=== PATIENT | male | born 1955 | race Caucasian/White ===

== ENCOUNTER 2016-07-24 07:01 | Day surgery (SDC) | payer OTHER ==
[2016-07-23 14:44] VITALS: BMI 26.4
[2016-07-24] MEDS ORDERED: LIDOCAINE HCL/PF 1% SDV 5ML VIAL ONE (07:52)
[2016-07-24] MEDS ORDERED: PROPOFOL 20 ML ONE ×3 (07:52)
[2016-07-24 09:00] VITALS: TEMP 98.1
[2016-07-24 10:20] VITALS: BP 121/68; PULSE 68
--- NOTE | 2016-07-25 13:21 | PATH ---
Surgical Pathology Report Patient Name: RICHA MORRIS [facility]. Rec. #: [id number] /Age/Gender: 1955 (Age: 61) / M Account: [id number] Location: [facility]-ENDOSCOPY Taken: 07/24/2016 Received: 07/24/2016 Reported: 07/25/2016 Physicians: Nicole Campoverde M.D. Specimen(s) Received A: BX ANTRUM B: BX DISTAL & MID ESOPHAGUS C: BX DISTAL SIGMOID POLYP D: CECAL POLYPS E: BX RECTUM Clinical History Acid reflux, atypical chest pain, polyp adenoma surveillance Gastritis, GERD, colon polyps, hemorrhoids, diverticulosis, proctitis Final Diagnosis A. STOMACH, ANTRUM, BIOPSY: GASTRIC ANTRAL MUCOSA WITH MODERATE CHRONIC GASTRITIS AND REACTIVE GASTROPATHY. IMMUNOSTAINS H. PYLORI IS NEGATIVE FOR ORGANISMS. B. ESOPHAGUS, DISTAL AND MID, BIOPSY: SQUAMOUS EPITHELIUM WITH FOCAL ACUTE AND CHRONIC INFLAMMATION AND MARKED REFLUX TYPE CHANGES. NO COLUMNAR EPITHELIUM PRESENT (NO INTESTINAL METAPLASIA OF SOLIS'S ESOPHAGUS IDENTIFIED). NO EVIDENCE OF EOSINOPHILIC ESOPHAGITIS. C. COLON, DISTAL SIGMOID, POLYP BIOPSY: FRAGMENTS OF HYPERPLASTIC POLYP. D. COLON, CECUM, POLYPS, BIOPSY AND POLYPECTOMY: FRAGMENTS OF SERRATED POLYP WITH ADENOMATOUS FEATURES AND CAUTERY ARTIFACT. ADDITIONAL FRAGMENTS OF COLONIC MUCOSA WITH SURFACE HYPERPLASTIC CHANGE. E. RECTUM, BIOPSY: RECTAL MUCOSA WITH ACTIVE PROCTITIS WITH FOCAL SURFACE EROSION (SEE COMMENT). NO EVIDENCE OF SIGINIFICANT ARCHITECTURAL DISTORTION, GRANULOMATA OR DYSPLASIA. Comment: The findings are nonspecific and may represent active proctitis of various etiologies including infections, drug/toxin injury, or peridiverticular inflammation. No prominent features of chronicity are seen. Clinical, endoscopic correlations and follow up are suggested. Electronically Signed Gaurang Matias M.D. Gross Description A. Received in formalin, labeled "biopsy antrum" are 2 camacho, irregular portions of soft tissue measuring 0.2 and 0.3 cm in greatest dimension. The specimens are submitted in toto in one cassette. B. Received in formalin, labeled "biopsy distal mid esophagus" are 2 camacho, irregular portions of soft tissue measuring 0.1 and 0.6 cm in greatest dimension. The specimens are submitted in toto in one cassette. C. Received in formalin, labeled "biopsy distal sigmoid polyp" are 2 camacho, irregular portions of soft tissue averaging 0.3 cm in greatest dimension. The specimens are submitted in toto in one cassette. D. Received in formalin, labeled "cecal polyps" are 8 cmaacho, irregular portions of soft tissue ranging from 0.1-0.4 cm in greatest dimension. The specimens are submitted in toto in one cassette. E. Received in formalin, labeled "biopsy rectum-proctitis" is a camacho, irregular portion of soft tissue measuring 0.3 cm in greatest dimension. The specimen is submitted in toto in one cassette. 07/24/2016 [facility]07/24/2016
== END 2016-07-24 10:19 | disposition home or self-care (01) ==
LOC: JASU-ENDO 07:01
PROVIDERS: ATTEND Internal Medicine Gastroenterology
PROC: 0DBK8ZX Excision of Ascending Colon, Via Natural or Artificial Opening Endoscopic, Diagnostic (ICD-10-PCS; 2016-07-24)
PROC: 0DBP8ZX Excision of Rectum, Via Natural or Artificial Opening Endoscopic, Diagnostic (ICD-10-PCS; 2016-07-24)
PROC: 0DB98ZX Excision of Duodenum, Via Natural or Artificial Opening Endoscopic, Diagnostic (ICD-10-PCS; 2016-07-24)
PROC: 0DB68ZX Excision of Stomach, Via Natural or Artificial Opening Endoscopic, Diagnostic (ICD-10-PCS; 2016-07-24)
PROC: 0DB28ZX Excision of Middle Esophagus, Via Natural or Artificial Opening Endoscopic, Diagnostic (ICD-10-PCS; 2016-07-24)
PROC: 0DB38ZX Excision of Lower Esophagus, Via Natural or Artificial Opening Endoscopic, Diagnostic (ICD-10-PCS; 2016-07-24)
PROC: 0DBK8ZX Excision of Ascending Colon, Via Natural or Artificial Opening Endoscopic, Diagnostic (ICD-10-PCS; principal; 2016-07-24 08:00)
DX: Z86.010 Personal history of colon polyps (principal); K63.5 Polyp of colon; K62.89 Other specified diseases of anus and rectum; K29.50 Unspecified chronic gastritis without bleeding; K31.9 Disease of stomach and duodenum, unspecified; K29.00 Acute gastritis without bleeding; K21.9 Gastro-esophageal reflux disease without esophagitis; K57.30 Diverticulosis of large intestine without perforation or abscess without bleeding; K64.8 Other hemorrhoids
CPT/HCPCS: 88305-TC; 88342-TC

== ENCOUNTER 2016-08-09 15:42 | Observation (INO) | payer OTHER ==
--- NOTE | 2016-08-09 16:12 | PDOC ---
Rapid Medical Evaluation Chief Complaint: Chest Pain Time Seen by Provider: 08/09/16 15:54 Medical Evaluation: Allergies Allergy/AdvReac Type Severity Reaction Status Date / Time Shellfish Allergy Unknown Verified 08/09/16 15:47 Iodinated Contrast Media - AdvReac Intermediate Verified 08/09/16 15:47 Oral and Vital Signs Temp Pulse Resp BP Pulse Ox 97.8 F 80 18 115/63 100 08/09/16 15:48 08/09/16 15:48 08/09/16 15:48 08/09/16 15:48 08/09/16 15:48 08/09/16 16:10 I have performed a brief in-person evaluation of this patient. The patient presents with a chief complaint of: pt sent for observation under dr albertina talamantes. C/o epigastriic and chest pain worse with swallowing. S/p endoscopy 1 week ago Pertinent physical exam findings: VSS. LCTA, no reproducible pain I have ordered the following: ekg, cardiac w/u , cbc, comp, ua, cxr, lipase The patient will proceed to the ED for further evaluation.
[2016-08-09] MEDS ORDERED: FAMOTIDINE 20 MG/50 ML IVPB 50 ML IVPB ONE ×2 (16:48→17:16)
[2016-08-09] MEDS ORDERED: MAG HYDROX/AL HYDROX/SIMETH 30 ML UNIT-DOSE CUP PO ONE (16:48)
[2016-08-09] MEDS ORDERED: SUCRALFATE 1 GM TABLET (FP) PO ONE (16:48)
[2016-08-09] MEDS ORDERED: ASPIRIN 81 MG CHEWABLE TABLETS PO ONE (16:48)
[2016-08-09 17:09] LABS: BASOPHIL 0.2 % (0-2.0); EOSINOPHIL 0.3 % (0-4.5); MCH 29.3 pg (25.7-33.7); MCHC 33.5 g/dl (32.0-35.9); MEAN CELL VOLUME 87.6 fl (80-96); MEAN PLT VOLUME 8.1 fl (7.5-11.1); PLATELET COUNT 342 K/MM3 (134-434); RDW 14.6 % (11.9-15.9); WHITE BLOOD COUNT 10.8 K/mm3 (4.0-10.0)
[2016-08-09] MEDS ORDERED: ASPIRIN 81 MG CHEWABLE TABLETS ONE (17:15)
[2016-08-09] MEDS ORDERED: MAG HYDROX/AL HYDROX/SIMETH 30 ML UNIT-DOSE CUP ONE (17:16)
[2016-08-09] MEDS ORDERED: SUCRALFATE 1 GM TABLET (FP) ONE (17:16)
[2016-08-09 17:24] LABS: INR 1.23 (0.82-1.09); PROTHROMBIN TIME (PATIENT) 13.6 SEC (9.98-11.88)
[2016-08-09 17:29] LABS: ALBUMIN 3.9 g/dl (3.4-5.0); ANION GAP 6 (8-16); BILIRUBIN,TOTAL 0.3 mg/dL (0.2-1.0); CO2 28 mmol/L (21-32); CREATININE 0.8 mg/dL (0.7-1.3); GLUCOSE,RANDOM 111 mg/dL (74-106); SGOT/AST 28 U/L (15-37); SGPT/ALT 59 U/L (12-78)
[2016-08-09 17:32] LABS: ALK PHOS 64 U/L (45-117); TROPONIN I < 0.02 ng/ml (0.00-0.05)
[2016-08-09 17:41] LABS: URINE APPEARANCE CLEAR; URINE BILIRUBIN NEGATIVE (NEGATIVE); URINE BLOOD NEGATIVE (NEGATIVE); URINE COLOR YELLOW; URINE GLUCOSE (UA) NEGATIVE (NEGATIVE); URINE KETONE NEGATIVE (NEGATIVE); URINE LEUK ESTERASE NEGATIVE (NEGATIVE); URINE NITRITE NEGATIVE (NEGATIVE); URINE PROTEIN NEGATIVE (NEGATIVE); URINE UROBILINOGEN NEGATIVE E.U./dl (0.2-1.0)
--- NOTE | 2016-08-09 17:53 | PDOC ---
History of Present Illness - General History Source: Patient, Co-worker Exam Limitations: No Limitations <Trell Perry - Last Filed: 08/09/16 18:06> - General History Source: Patient Exam Limitations: No Limitations - History of Present Illness Initial Comments: 08/09/16 17:59 The patient is a 61-year-old male, with a significant past medical history of peripheral neuropathy, CAD (S/P Stent S/P cardiac cath in Mar 2013.), HTN, Hyperlipdemia, DC, Other (Parox. Afib), COPD, GERD, BPH, recent fracture (Rt Tibia- no surgery due to cardiac issues), who was sent to the ED by Dr. Archibald for chest pain today. The patient states that the pain began this morning and woke him up out of his sleep. He describes the pain as constant, sharp in sensation, 2/10 when the pt is positioned comfortably but an 8/10 when the pt swallows, with no radiation. He does report experiencing shortness of breath for the past couple of days, but denies feeling short of breath now. The patient denies any fever, chills, nausea, vomiting, diarrhea, abdominal pain , or shortness of breath. 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) Cardiac Disorders: Yes (CAD, ANGINA, STENT X2, A-FIB) CVA: No COPD: Yes CHF: No DVT: No Dementia: No Diabetes: No GI Disorders: Yes (,DIVERTICULOSIS,,ESOPHAGEAL DYSMOTILITY) Disorders: Yes (NOCTURIA) HTN: Yes Hypercholesterolemia: Yes Kidney Stones: Yes Liver Disease: Yes (NAFLD) Suicide Attempt (Hx): No Seizures: No Thyroid Disease: No - Surgical History Abdominal Surgery: No Appendectomy: No Cardiac Surgery: Yes (CARDIAC STENT) Cholecystectomy: Yes (LAPAROSCOPIC) Lung Surgery: No Neurologic Surgery: No Orthopedic Surgery: Yes (ORIF Left Arm,Left Knee Arthroscopy) - Immunization History Td Vaccination: Yes (2006) Immunization Up to Date: Yes - Psycho/Social/Smoking Cessation Hx Anxiety: No Suicidal Ideation: No Smoking Status: Yes Smoking History: Unknown if ever smoked Years of Tobacco Use: 21 Have you smoked in the past 12 months: No Number of Cigarettes Smoked Daily: 60 If you are a former smoker, when did you quit?: ABOUT 20 YEARS AGO Information on smoking cessation initiated: No Hx Alcohol Use: No Drug/Substance Use Hx: No Substance Use Type: None Hx Substance Use Treatment: No <Trell Perry - Last Filed: 08/09/16 18:06> <Peggy Edmond - Last Filed: 08/09/16 18:15> - Past Medical History Allergies/Adverse Reactions: Allergies Allergy/AdvReac Type Severity Reaction Status Date / Time Shellfish Allergy Unknown Verified 08/09/16 15:47 Iodinated Contrast Media - AdvReac Intermediate Verified 08/09/16 15:47 Oral and Home Medications: Ambulatory Orders Albuterol 0.083% Nebulizer Jessy [Ventolin 0.083% Nebulizer Soln -] 1 neb NEB QID PRN 09/09/14 Aspirin [ASA -] 81 mg PO BID 09/09/14 Clopidogrel Bisulfate [Plavix -] 75 mg PO DAILY 09/09/14 Cyanocobalamin (Vitamin B-12) [Vitamin B-12] 1,000 mcg PO DAILY 09/09/14 Fish Oil/Borage/Flax/Om3,6,9#1 [[place]land 3-6-9 1,200 mg Softgel] 2 cap PO BID 09/09 Folic Acid - 1 mg PO HS 09/09/14 Hydrocodone Bit/Acetaminophen [Lortab 10-500] 1 tab PO TID PRN 09/09/14 Lisinopril [Prinivil -] 2.5 mg PO DAILY 09/09/14 Metoprolol Succinate [Toprol XL -] 25 mg PO BID 09/09/14 Montelukast Na [Singulair -] 10 mg PO HS 09/09/14 Multivitamins [Multivit ([facility] Formulary)] 1 tab PO DAILY 09/09/14 Nitroglycerin Sublingual [Nitrostat -] 0.4 mg SL ASDIR PRN 09/09/14 Potassium 99 mg PO DAILY 09/09/14 Sucralfate 1 gm PO QID 09/09/14 Zolpidem Tartrate [Ambien] 10 mg PO HS 09/09/14 Diltiazem Cd [Cardizem Cd -] 240 mg PO DAILY 11/14/14 Finasteride [Proscar] 5 mg PO DAILY 11/14/14 Magnesium Chloride [Slow-Mag -] 143 mg PO BID 11/14/14 Pravastatin Sodium [Pravachol -] 40 mg PO HS 11/14/14 Tamsulosin HCl [Flomax -] 0.4 mg PO DAILY 11/14/14 Dabigatran Etexilate Mesylate [Pradaxa -] 150 mg PO BID 07/23/16 Prednisone [Deltasone -] 10 mg PO DAILY 07/23/16 Mag Carb/Al Hydrox/Alginic AC [Gaviscon Liquid] 355 ml PO Q4H PRN #0 oral.susp 07/24/16 Mesalamine Suppository [Canasa Suppository] 1,000 mg RC DAILY #30 supp 07/24/16 Mesalamine Suppository [Canasa Suppository] 1,000 mg RC HS #0 supp 07/24/16 Pantoprazole Sodium [Protonix] 40 mg PO DAILY #0 tablet. 07/24/16 Pantoprazole Sodium [Protonix] 40 mg PO DAILY #90 tablet. 07/24/16 Ranitidine [Zantac -] 150 mg PO BID #0 07/24/16 Review of Systems - Review of Systems Able to Perform ROS?: Yes Comments:: 08/09/16 18:00 GENERAL/CONSTITUTIONAL: No fever or chills. No weakness. HEAD, EYES, EARS, NOSE AND THROAT: No change in vision. No ear pain or discharge. No sore throat. CARDIOVASCULAR: No shortness of breath. (+)Chest pain RESPIRATORY: No cough, wheezing, or hemoptysis. GASTROINTESTINAL: No nausea, vomiting, diarrhea or constipation. GENITOURINARY: No dysuria, frequency, or change in urination. MUSCULOSKELETAL: No joint or muscle swelling or pain. No neck or back pain. SKIN: No rash NEUROLOGIC: No headache, vertigo, loss of consciousness, or change in strength/ sensation. ENDOCRINE: No increased thirst. No abnormal weight change. HEMATOLOGIC/LYMPHATIC: No anemia, easy bleeding, or history of blood clots. ALLERGIC/IMMUNOLOGIC: No hives or skin allergy. <Peggy Edmond - Last Filed: 08/09/16 18:15> *Physical Exam - Vital Signs Last Vital Signs Temp Pulse Resp BP Pulse Ox 97.8 F 80 18 115/63 100 08/09/16 15:48 08/09/16 15:48 08/09/16 15:48 08/09/16 15:48 08/09/16 15:48 <Trell Perry - Last Filed: 08/09/16 18:06> - Vital Signs Last Vital Signs Temp Pulse Resp BP Pulse Ox 97.8 F 80 18 115/63 100 08/09/16 15:48 08/09/16 15:48 08/09/16 15:48 08/09/16 15:48 08/09/16 15:48 - Physical Exam Comments: 08/09/16 18:01 GENERAL: Awake, alert, and fully oriented, in no acute distress HEAD: No signs of trauma EYES: PERRLA, EOMI, sclera anicteric, conjunctiva clear ENT: Auricles normal inspection, hearing grossly normal, nares patent, oropharynx clear without exudates. Moist mucosa NECK: Normal ROM, supple, no lymphadenopathy, JVD, or masses LUNGS: Breath sounds equal, clear to auscultation bilaterally. No wheezes, and no crackles HEART: Regular rate and rhythm, normal S1 and S2, no murmurs, rubs or gallops ABDOMEN: Soft, nontender, normoactive bowel sounds. No guarding, no rebound. No masses EXTREMITIES: Normal range of motion, no edema. No clubbing or cyanosis. No cords, erythema, or tenderness NEUROLOGICAL: Cranial nerves II through XII grossly intact. Normal speech, normal gait SKIN: Warm, Dry, normal turgor, no rashes or lesions noted <Peggy Edmond - Last Filed: 08/09/16 18:15> Heart Score/ECG Review - History History: Moderately suspicious - Electrocardiogram EKG: Non specific repolarization disturbance - Age Age: >/= 65 - Risk Factors Based on the list above the patient has:: >/=3 risk factors or Hx atherosclerotic disease - Troponin Troponin: </= normal limit - Score Heart Score - Total: 6 #1 ECG reviewed & interpreted by me at: 15:50 08/09/16 18:07 NSR 70, incomplete RBBB, no std/rosales, T wave flat III, QTC 427 msec <Trell Perry - Last Filed: 08/09/16 18:06> ED Treatment Course - LABORATORY CBC & Chemistry Diagram: 08/09/16 16:25 08/09/16 16:25 - ADDITIONAL ORDERS Additional order review: Laboratory Results 08/09/16 08/09/16 08/09/16 16:30 16:25 16:25 INR 1.23 H Sodium 141 Potassium 4.4 Chloride 107 Carbon Dioxide 28 Anion Gap 6 L BUN 14 Creatinine 0.8 Creat Clearance w eGFR > 60 Random Glucose 111 H D Calcium 9.0 Total Bilirubin 0.3 D AST 28 D ALT 59 D Alkaline Phosphatase 64 D Creatine Kinase 62 Troponin I < 0.02 Total Protein 7.0 D Albumin 3.9 D Lipase 135 Urine Color Yellow Urine Appearance Clear Urine pH 5.0 Ur Specific [place] 1.027 Urine Protein Negative Urine Glucose (UA) Negative Urine Ketones Negative Urine Blood Negative Urine Nitrite Negative Urine Bilirubin Negative Urine Urobilinogen Negative Ur Leukocyte Esterase Negative 08/09/16 16:25 RBC 4.33 MCV 87.6 MCHC 33.5 RDW 14.6 MPV 8.1 Neutrophils % 88.0 H Lymphocytes % 6.6 L D Monocytes % 4.9 Eosinophils % 0.3 Basophils % 0.2 - Medications Given in the ED: ED Medications Discontinued Medications Generic Name Dose Route Start Last Admin Trade Name Shaun PRN Reason Stop Dose Admin Al Hydroxide/Mg Hydroxide 30 ml 08/09/16 16:48 08/09/16 17:30 Mylanta Oral Suspension - PO 08/09/16 16:49 30 ml ONCE ONE Administration Aspirin 243 mg 08/09/16 16:48 08/09/16 17:30 Asa - PO 08/09/16 16:49 243 mg ONCE ONE Administration Sucralfate 1 gm 08/09/16 16:48 08/09/16 17:30 Carafate - PO 08/09/16 16:49 1 gm ONCE ONE Administration <Trell Perry - Last Filed: 08/09/16 18:06> - LABORATORY CBC & Chemistry Diagram: 08/09/16 16:25 08/09/16 16:25 - ADDITIONAL ORDERS Additional order review: Laboratory Results 08/09/16 08/09/16 08/09/16 16:30 16:25 16:25 INR 1.23 H Sodium 141 Potassium 4.4 Chloride 107 Carbon Dioxide 28 Anion Gap 6 L BUN 14 Creatinine 0.8 Creat Clearance w eGFR > 60 Random Glucose 111 H D Calcium 9.0 Total Bilirubin 0.3 D AST 28 D ALT 59 D Alkaline Phosphatase 64 D Creatine Kinase 62 Troponin I < 0.02 Total Protein 7.0 D Albumin 3.9 D Lipase 135 Urine Color Yellow Urine Appearance Clear Urine pH 5.0 Ur Specific [place] 1.027 Urine Protein Negative Urine Glucose (UA) Negative Urine Ketones Negative Urine Blood Negative Urine Nitrite Negative Urine Bilirubin Negative Urine Urobilinogen Negative Ur Leukocyte Esterase Negative 08/09/16 16:25 RBC 4.33 MCV 87.6 MCHC 33.5 RDW 14.6 MPV 8.1 Neutrophils % 88.0 H Lymphocytes % 6.6 L D Monocytes % 4.9 Eosinophils % 0.3 Basophils % 0.2 - RADIOLOGY Radiology Studies Ordered: 08/09/16 18:12 Chest X-Ray was reviewed by Dr. Perry and over-read by Radiology. Impression: No acute pathology. No significant change since prior study. - Medications Given in the ED: ED Medications Discontinued Medications Generic Name Dose Route Start Last Admin Trade Name Freq PRN Reason Stop Dose Admin Al Hydroxide/Mg Hydroxide 30 ml 08/09/16 16:48 08/09/16 17:30 Mylanta Oral Suspension - PO 08/09/16 16:49 30 ml ONCE ONE Administration Aspirin 243 mg 08/09/16 16:48 08/09/16 17:30 Asa - PO 08/09/16 16:49 243 mg ONCE ONE Administration Sucralfate 1 gm 08/09/16 16:48 08/09/16 17:30 Carafate - PO 08/09/16 16:49 1 gm ONCE ONE Administration <Peggy Edmond - Last Filed: 08/09/16 18:15> Medical Decision Making - Medical Decision Making 08/09/16 17:53 A portion of this note was documented by scribe services under my direction. I have reviewed the details of the note, within reason, and agree with the documentation with the following case summary and management plan written by me. Patient treated in the ED. Nursing notes are reviewed and incorporated into the medical decision-making. Vital signs reviewed. Peripheral IV access obtained by the nurse, laboratory studies are drawn and sent, reviewed and interpreted by myself. Vital Signs Temp Pulse Resp BP Pulse Ox 97.8 F 80 18 115/63 100 03/03/17 15:48 08/09/16 15:48 08/09/16 15:48 08/09/16 15:48 08/09/16 15:48 61 year old male with Past medical history of asthma, cancer, teratoma 19 years old, coronary artery disease, angina, coronary disease status post stents, atrial fibrillation on pradaxa, hypertension, hyperlipidemia, GERD, kidney stones presents with chest pain from patient's primary care physician's office. 2 weeks ago, the patient had an colonoscopy and endoscopy by GI doctor Dr. Campoverde. Was told that he had polyps at that time. Since then, the patient has been complaining about intermittent midsternal chest discomfort with no radiation. Occasionally sepsis or shortness of breath. Denies nausea, vomiting, diaphoresis. Patient went to go visit his primary care physician but was referred to the ER for cardiac workup. Patient reports that the symptoms are worsened with eating. It may be very possible that this is GI related. However, given his significant cardiac history, we will need to rule out DC. We'll give GERD medications, aspirin. Obtain a troponin and admit the patient to the hospital for further evaluation. 08/09/16 18:07 CBC, BMP 08/09/16 16:25 08/09/16 16:25 CMP Sodium 141 mmol/L (136-145) 08/09/16 16:25 Potassium 4.4 mmol/L (3.5-5.1) 08/09/16 16:25 Chloride 107 mmol/L (98-107) 08/09/16 16:25 Carbon Dioxide 28 mmol/L (21-32) 08/09/16 16:25 Anion Gap 6 (8-16) L 08/09/16 16:25 BUN 14 mg/dL (7-18) 08/09/16 16:25 Creatinine 0.8 mg/dL (0.7-1.3) 08/09/16 16:25 Creat Clearance w eGFR > 60 (>60) 08/09/16 16:25 Random Glucose 111 mg/dL (74-106) H D 08/09/16 16:25 Calcium 9.0 mg/dL (8.5-10.1) 08/09/16 16:25 Total Bilirubin 0.3 mg/dL (0.2-1.0) D 08/09/16 16:25 AST 28 U/L (15-37) D 08/09/16 16:25 ALT 59 U/L (12-78) D 08/09/16 16:25 Alkaline Phosphatase 64 U/L (45-117) D 08/09/16 16:25 Creatine Kinase 62 IU/L (39-308) 08/09/16 16:25 Troponin I < 0.02 ng/ml (0.00-0.05) 08/09/16 16:25 Total Protein 7.0 g/dl (6.4-8.2) D 08/09/16 16:25 Albumin 3.9 g/dl (3.4-5.0) D 08/09/16 16:25 Lipase 135 U/L (73-393) 08/09/16 16:25 Trop negative. Chest xray reviewed by me, pending official read. No acute findings. GERD medications did not alleviate symptoms. Case discussed with Dr. Archibald. She accepts the patient to tele observation. Case discussed in detail with admitting physician including history, physical exam and ancillary studies. Admitting physician has assumed care for the patient, will follow all pending diagnostics and will complete the evaluation and treatment. <Trell Perry - Last Filed: 08/09/16 18:06> - Medical Decision Making 08/09/16 18:04 Dr. Mehreen Cobb was paged and notified via phone service. <Peggy Edmond - Last Filed: 08/09/16 18:15> *DC/Admit/Observation/Transfer - Discharge Dispostion Admit: Yes <Trell Perry - Last Filed: 08/09/16 18:06> - Attestations Scribe Attestion: 08/09/16 18: Documentation prepared by Peggy Edmond, acting as medical assistant supervisor for Trell Perry MD. <Peggy Edmond - Last Filed: 08/09/16 18:15> Diagnosis at time of Disposition: Chest pain Qualifiers: Chest pain type: unspecified Qualified Code(s): R07.9 - Chest pain, unspecified - Referrals Referrals: David Quiñonez MD [Primary Care Provider] -
[2016-08-09] MEDS ORDERED: ACETAMINOPHEN PO PRN (21:08)
[2016-08-09] MEDS ORDERED: NITROGLYCERIN SUBLINGUAL 1/150 0.4 MG TAB SL PRN (21:08)
[2016-08-09] MEDS ORDERED: ALBUTEROL SO4 0.083% IH SOL 2.5 MG/3 ML VIAL.NEB. NEB PRN (21:08)
[2016-08-09] MEDS ORDERED: HYDROCODONE PO PRN (21:08)
[2016-08-09] MEDS ORDERED: [UNRECOGNIZED DRUG - OTHER] PO PRN (21:08)
[2016-08-09] MEDS ORDERED: ZOLPIDEM TARTRATE 5 MG TABLET PO PRN (22:00)
[2016-08-09 22:08] LABS: TROPONIN I < 0.02 ng/ml (0.00-0.05)
[2016-08-09] MEDS ORDERED: ATORVASTATIN CA 10 MG TABLET (FP) PO SCH (22:15)
[2016-08-09] MEDS: RANITIDINE HCL 150 MG TABLET (FP) PO SCH (22:34)
[2016-08-09] MEDS: DABIGATRAN ETEXILATE MESYLATE 150 MG CAPSULE PO SCH (22:34)
[2016-08-09] MEDS: METOPROLOL SUCCINATE 25 MG TAB.SR.24H (FP) PO SCH (22:34)
[2016-08-09] MEDS: SUCRALFATE 1 GM TABLET (FP) PO SCH (22:34)
[2016-08-09] MEDS: oxyCODONE HCL 5 MG TABLET PO PRN (22:44)
[2016-08-09] MEDS: ACETAMINOPHEN 325 MG TABLET (FP) PO PRN (22:46)
[2016-08-09 23:06] VITALS: BMI 26.4
[2016-08-09] MEDS: MAGNESIUM CL 64 MG TABLET.SA PO SCH (23:18)
[2016-08-10] MEDS: oxyCODONE HCL 5 MG TABLET PO PRN (06:35)
[2016-08-10] MEDS: ACETAMINOPHEN 325 MG TABLET (FP) PO PRN (06:36)
[2016-08-10 07:01] LABS: BASOPHIL 0.3 % (0-2.0); MCH 28.7 pg (25.7-33.7); MCHC 32.8 g/dl (32.0-35.9); MEAN CELL VOLUME 87.4 fl (80-96); MEAN PLT VOLUME 7.8 fl (7.5-11.1); NEUTROPHILS 70.6 % (42.8-82.8); PLATELET COUNT 301 K/MM3 (134-434); RDW 14.4 % (11.9-15.9); WHITE BLOOD COUNT 10.9 K/mm3 (4.0-10.0)
[2016-08-10 07:29] LABS: TROPONIN I < 0.02 ng/ml (0.00-0.05)
[2016-08-10 07:30] LABS: ALBUMIN 3.6 g/dl (3.4-5.0); ANION GAP 8 (8-16); CO2 29 mmol/L (21-32); GLUCOSE,RANDOM 91 mg/dL (74-106)
[2016-08-10 07:33] LABS: ALK PHOS 56 U/L (45-117); BILIRUBIN,TOTAL 0.4 mg/dL (0.2-1.0); CREATININE 0.8 mg/dL (0.7-1.3); SGOT/AST 20 U/L (15-37); SGPT/ALT 48 U/L (12-78); TOT PROT 6.3 g/dl (6.4-8.2)
--- NOTE | 2016-08-10 08:48 | CON.CARD ---
Consult Consult Specialty:: Cardiology - History of Present Illness History of Present Illness: The patient is a 61-year-old male, with a significant past medical history of peripheral neuropathy, CAD (S/P Stent S/P cardiac cath in Mar 2013.), HTN, Hyperlipdemia, MS, Other (Parox. Afib), COPD, GERD, BPH, recent fracture (Rt Tibia- no surgery due to cardiac issues), who was sent to the ED by Dr. Archibald for chest pain today. The patient states that the pain began this morning and woke him up out of his sleep. He describes the pain as constant, sharp in sensation, 2/10 when the pt is positioned comfortably but an 8/10 when the pt swallows, with no radiation. He does report experiencing shortness of breath for the past couple of days, but denies feeling short of breath now. patient describes cp as something stuck in his esophagus. 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 Afib) Pulmonary: Yes: Cancer, COPD Gastrointestinal: Yes: GERD Renal/: Yes: BPH Psych: Yes: Anxiety, Panic Musculoskeletal: Yes: Other (recent fracture Rt Tibia- no surgery due to cardiac issues) Endocrine: Yes: Diabetes Mellitus - Past Surgical History Past Surgical History: Yes: Stent (recent stent was in Mar 2013.) - Alcohol/Substance Use Hx Alcohol Use: Yes (moderate) - Smoking History Smoking history: Former smoker Have you smoked in the past 12 months: No Aproximately how many cigarettes per day: 60 If you are a former smoker, when did you quit?: 1989 - Social History ADL: Family Assistance History of Recent Travel: No Home Medications - Allergies Allergies/Adverse Reactions: Allergies Allergy/AdvReac Type Severity Reaction Status Date / Time Shellfish Allergy Unknown Verified 08/09/16 15:47 Iodinated Contrast Media - AdvReac Intermediate Verified 08/09/16 15:47 Oral and - Home Medications Home Medications: Ambulatory Orders Albuterol 0.083% Nebulizer Jessy [Ventolin 0.083% Nebulizer Soln -] 1 neb NEB TID PRN 09/09/14 Clopidogrel Bisulfate [Plavix -] 75 mg PO DAILY 09/09/14 Cyanocobalamin (Vitamin B-12) [Vitamin B-12] 1,000 mcg PO DAILY 09/09/14 Fish Oil/Borage/Flax/Om3,6,9#1 [[place] 3-6-9 1,200 mg Softgel] 2 cap PO BID 09/09 Folic Acid - 1 mg PO HS 09/09/14 Lisinopril [Prinivil -] 2.5 mg PO DAILY 09/09/14 Metoprolol Succinate [Toprol XL -] 25 mg PO BID 09/09/14 Montelukast Na [Singulair -] 10 mg PO HS 09/09/14 Multivitamins [Multivit ([facility] Formulary)] 1 tab PO DAILY 09/09/14 Nitroglycerin Sublingual [Nitrostat -] 0.4 mg SL ASDIR PRN 09/09/14 Potassium 99 mg PO DAILY 09/09/14 Sucralfate 1 gm PO ACHS 09/09/14 Zolpidem Tartrate [Ambien] 10 mg PO HS PRN 09/09/14 Diltiazem Cd [Cardizem Cd -] 240 mg PO DAILY 11/14/14 Finasteride [Proscar] 5 mg PO DAILY 11/14/14 Magnesium Chloride [Slow-Mag -] 143 mg PO BID 11/14/14 Pravastatin Sodium [Pravachol -] 40 mg PO HS 11/14/14 Tamsulosin HCl [Flomax -] 0.4 mg PO DAILY 11/14/14 Dabigatran Etexilate Mesylate [Pradaxa -] 150 mg PO BID 07/23/16 Prednisone [Deltasone -] 10 mg PO DAILY 07/23/16 Ranitidine [Zantac -] 150 mg PO BID #0 07/24/16 Aspirin [Ecotrin] 81 mg PO BID 08/09/16 Hydrocodone/Acetaminophen [Lorcet Hd 10-325 mg Tablet] 1 each PO TID PRN Albuterol Sulfate Inhaler - [Ventolin Hfa Inhaler -] 1 - 2 inh PO BID PRN Fluticasone Prop 0.05% Nasal [Flonase -] 1 - 2 spray NS BID PRN 08/10/16 Review of Systems - Review of Systems Constitutional: reports: No Symptoms Eyes: reports: No Symptoms HENT: reports: No Symptoms Neck: reports: No Symptoms Cardiovascular: reports: Chest Pain Gastrointestinal: reports: Indigestion Genitourinary: reports: No Symptoms Breasts: reports: No Symptoms Reported Musculoskeletal: reports: No Symptoms Integumentary: reports: No Symptoms Neurological: reports: No Symptoms Endocrine: reports: No Symptoms Hematology/Lymphatic: reports: No Symptoms Psychiatric: reports: No Symptoms Vital Signs: Vital Signs Temperature 98.4 F 08/10/16 06:00 Pulse Rate 74 08/10/16 06:00 Respiratory Rate 20 08/10/16 06:00 Blood Pressure 129/81 08/10/16 06:00 O2 Sat by Pulse Oximetry (%) 98 08/09/16 22:00 Constitutional: Yes: Well Nourished, No Distress, Calm Eyes: Yes: WNL, Conjunctiva Clear, EOM Intact HENT: Yes: WNL, Atraumatic, Normocephalic Neck: Yes: WNL, Supple, Trachea Midline Respiratory: Yes: WNL, Regular, CTA Bilaterally Gastrointestinal: Yes: WNL, Normal Bowel Sounds Renal/: Yes: WNL Cardiovascular: Yes: WNL, Regular Rate and Rhythm Musculoskeletal: Yes: WNL Extremities: Yes: WNL Integumentary: Yes: WNL Neurological: Yes: WNL, Alert, Oriented ...Motor Strength: WNL Psychiatric: Yes: WNL, Alert, Oriented - Other Data Labs, Other Data: CBC, BMP 08/10/16 06:20 08/10/16 06:20 INR, PTT INR 1.23 (0.82-1.09) H 08/09/16 16:25 Troponin, BNP 08/09/16 08/10/16 21:31 06:20 Troponin I < 0.02 < 0.02 Troponin, BNP 08/09/16 08/10/16 21:31 06:20 Troponin I < 0.02 < 0.02 Imaging - Results Chest X-ray: Image Reviewed (no i/e) EKG: Pending Problem List - Problems (1) Anticoagulation adequate Code(s): Z79.01 - HALF-WAY (CURRENT) USE OF ANTICOAGULANTS (2) CAD (coronary artery disease) Code(s): I25.10 - ATHSCL HEART DISEASE OF [place] CORONARY ARTERY W/O ANG PCTRS (3) Chest pain Code(s): R07.9 - CHEST PAIN, UNSPECIFIED Qualifiers: Chest pain type: unspecified Qualified Code(s): R07.9 - Chest pain, unspecified (4) HLD (hyperlipidemia) Code(s): E78.5 - HYPERLIPIDEMIA, UNSPECIFIED (5) HTN (hypertension) Code(s): I10 - ESSENTIAL (PRIMARY) HYPERTENSION (6) Paroxysmal a-fib Code(s): I48.0 - PAROXYSMAL ATRIAL FIBRILLATION (7) Right leg pain Code(s): M79.604 - PAIN IN RIGHT LEG (8) Acute coronary syndrome Code(s): I24.9 - ACUTE ISCHEMIC HEART DISEASE, UNSPECIFIED (9) Atopic conjunctivitis of right eye Code(s): H10.11 - ACUTE ATOPIC CONJUNCTIVITIS, RIGHT EYE (10) Atrial fibrillation with rapid ventricular response Code(s): I48.91 - UNSPECIFIED ATRIAL FIBRILLATION (11) Blepharitis of right eye Code(s): H01.003 - UNSPECIFIED BLEPHARITIS RIGHT EYE, UNSPECIFIED EYELID (12) EKG abnormalities Code(s): R94.31 - ABNORMAL ELECTROCARDIOGRAM [ECG] [EKG] (13) Nosebleed Code(s): R04.0 - EPISTAXIS Assessment/Plan ashd cp sx indigestion ce neg htn hld af plan gi eval r/o mi ekg tlemetry will f/u
[2016-08-10] MEDS ORDERED: PT OWN MED DRAWER 7, Y5N ONE (09:28)
[2016-08-10] MEDS: RANITIDINE HCL 150 MG TABLET (FP) PO SCH (09:43)
[2016-08-10] MEDS: SUCRALFATE 1 GM TABLET (FP) PO SCH (09:43)
[2016-08-10] MEDS: DABIGATRAN ETEXILATE MESYLATE 150 MG CAPSULE PO SCH (09:44)
[2016-08-10] MEDS: MAGNESIUM CL 64 MG TABLET.SA PO SCH (09:44)
[2016-08-10] MEDS: METOPROLOL SUCCINATE 25 MG TAB.SR.24H (FP) PO SCH (09:45)
[2016-08-10] MEDS ORDERED: CLOPIDOGREL BISULFATE 75 MG TABLET (FP) PO SCH (10:00)
[2016-08-10] MEDS ORDERED: LISINOPRIL 5 MG TABLET (FP) PO SCH (10:00)
[2016-08-10] MEDS ORDERED: FINASTERIDE 5 MG TABLET (FP) PO SCH (10:00)
[2016-08-10] MEDS ORDERED: TAMSULOSIN HCL 0.4 MG CAP.ER.24H (FP) PO SCH (10:00)
[2016-08-10] MEDS ORDERED: predniSONE 10 MG TABLET (UD) PO SCH (10:00)
[2016-08-10] MEDS ORDERED: ASPIRIN COATED 81 MG TABLET.EC PO SCH (10:00)
--- NOTE | 2016-08-10 11:23 | HP ---
Admitting History and Physical - Primary Care Physician PCP: Mehreen Cobb - Admission Chief Complaint: chest pain History of Present Illness: 61 YRS old male sent from my office for chest pain while swallowing yesterday. Pt woke up yesterday morning with chest pain -- sharp, increased on swallowing- feels like a sharp , cutting object in his mid- chest. EKG done in my office was unremarkable but I sent him to be evaluated for ACS as he has h/o cardiac disease. 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 Afib) Pulmonary: Yes: Cancer, COPD Gastrointestinal: Yes: GERD Renal/: Yes: BPH Psych: Yes: Anxiety, Panic Musculoskeletal: Yes: Other (recent fracture Rt Tibia- no surgery due to cardiac issues) Endocrine: Yes: Diabetes Mellitus - Past Surgical History Past Surgical History: Yes: Stent (recent stent was in Mar 2013.) - Smoking History Smoking history: Former smoker Have you smoked in the past 12 months: No Aproximately how many cigarettes per day: 60 If you are a former smoker, when did you quit?: 1989 - Alcohol/Substance Use Hx Alcohol Use: Yes (moderate) - Social History ADL: Family Assistance History of Recent Travel: No Home Medications - Allergies Allergies/Adverse Reactions: Allergies Allergy/AdvReac Type Severity Reaction Status Date / Time Shellfish Allergy Unknown Verified 08/09/16 15:47 Iodinated Contrast Media - AdvReac Intermediate Verified 08/09/16 15:47 Oral and - Home Medications Home Medications: Ambulatory Orders Albuterol 0.083% Nebulizer Jessy [Ventolin 0.083% Nebulizer Soln -] 1 neb NEB TID PRN 09/09/14 Clopidogrel Bisulfate [Plavix -] 75 mg PO DAILY 09/09/14 Cyanocobalamin (Vitamin B-12) [Vitamin B-12] 1,000 mcg PO DAILY 09/09/14 Fish Oil/Borage/Flax/Om3,6,9#1 [[place] 3-6-9 1,200 mg Softgel] 2 cap PO BID 09/09 Folic Acid - 1 mg PO HS 09/09/14 Lisinopril [Prinivil -] 2.5 mg PO DAILY 09/09/14 Metoprolol Succinate [Toprol XL -] 25 mg PO BID 09/09/14 Montelukast Na [Singulair -] 10 mg PO HS 09/09/14 Multivitamins [Multivit ([facility] Formulary)] 1 tab PO DAILY 09/09/14 Nitroglycerin Sublingual [Nitrostat -] 0.4 mg SL ASDIR PRN 09/09/14 Potassium 99 mg PO DAILY 09/09/14 Sucralfate 1 gm PO ACHS 09/09/14 Zolpidem Tartrate [Ambien] 10 mg PO HS PRN 09/09/14 Diltiazem Cd [Cardizem Cd -] 240 mg PO DAILY 11/14/14 Finasteride [Proscar] 5 mg PO DAILY 11/14/14 Magnesium Chloride [Slow-Mag -] 143 mg PO BID 11/14/14 Pravastatin Sodium [Pravachol -] 40 mg PO HS 11/14/14 Tamsulosin HCl [Flomax -] 0.4 mg PO DAILY 11/14/14 Dabigatran Etexilate Mesylate [Pradaxa -] 150 mg PO BID 07/23/16 Prednisone [Deltasone -] 10 mg PO DAILY 07/23/16 Ranitidine [Zantac -] 150 mg PO BID #0 07/24/16 Aspirin [Ecotrin] 81 mg PO BID 08/09/16 Hydrocodone/Acetaminophen [Lorcet Hd 10-325 mg Tablet] 1 each PO TID PRN Albuterol Sulfate Inhaler - [Ventolin HFA Inhaler -] 1 - 2 inh PO BID PRN Fluticasone Prop 0.05% Nasal [Flonase -] 1 - 2 spray NS BID PRN 08/10/16 Review of Systems - Review of Systems Constitutional: denies: Chills, Fever, Loss of Appetite, Weakness Cardiovascular: reports: Chest Pain. denies: Palpitations, Shortness of Breath Respiratory: denies: Cough, SOB, SOB on Exertion Physical Examination Vital Signs: Vital Signs Temperature 98.4 F 08/10/16 06:00 Pulse Rate 74 08/10/16 06:00 Respiratory Rate 20 08/10/16 06:00 Blood Pressure 129/81 08/10/16 06:00 O2 Sat by Pulse Oximetry (%) 98 08/10/16 05:00 Constitutional: Yes: No Distress, Calm Cardiovascular: Yes: Regular Rate and Rhythm Respiratory: Yes: CTA Bilaterally Gastrointestinal: Yes: Normal Bowel Sounds, Soft. No: Distention, Tenderness Edema: No Psychiatric: Yes: Alert, Oriented Labs: CBC, BMP 08/10/16 06:20 08/10/16 06:20 Imaging - Results Chest X-ray: Image Reviewed EKG: Image Reviewed (No ST elevation, NSR) Problem List - Problems (1) CAD (coronary artery disease) Code(s): I25.10 - ATHSCL HEART DISEASE OF [place] CORONARY ARTERY W/O ANG PCTRS (2) HLD (hyperlipidemia) Code(s): E78.5 - HYPERLIPIDEMIA, UNSPECIFIED (3) HTN (hypertension) Code(s): I10 - ESSENTIAL (PRIMARY) HYPERTENSION (4) Paroxysmal a-fib Code(s): I48.0 - PAROXYSMAL ATRIAL FIBRILLATION (5) Chest pain Code(s): R07.9 - CHEST PAIN, UNSPECIFIED Qualifiers: Chest pain type: unspecified Qualified Code(s): R07.9 - Chest pain, unspecified (6) Esophageal spasm Code(s): K22.4 - DYSKINESIA OF ESOPHAGUS (7) GERD without esophagitis Code(s): K21.9 - GASTRO-ESOPHAGEAL REFLUX DISEASE WITHOUT ESOPHAGITIS Assessment/Plan PLAN Cardiac enzymes negative continue with meds Pt feels slightly better today Able to eat breakfast Will need Carafate and PPI Cleared by Cardiology Spoke with Dr Muller-- pt is ok for dc home
[2016-08-10 11:28] VITALS: BP 101/77; PULSE 84; TEMP 98
[2016-08-10 11:30] LABS: TROPONIN I < 0.02 ng/ml (0.00-0.05)
[2016-08-10] MEDS ORDERED: MAG HYDROX/AL HYDROX/SIMETH 30 ML UNIT-DOSE CUP PO PRN (11:40)
--- NOTE | 2016-08-10 12:59 | CON.GI ---
Consult Consult Specialty:: Gastroenterology Referred by:: Dr. Mehreen Cobb Reason for Consultation:: Chest pain - History of Present Illness Chief Complaint: Awoken by a sharp cutting pain in the mid-chest History of Present Illness: 61M presented to the office of Dr. Mehreen Cobb yesterday with c/o a sharp, cutting mid-retrosternal chest pain aggravated by swallowing . He had an EGD with or on 07/24/16 when mid-esophageal spasms were noted but there were no ulcerations or esophagitis. Biopsies failed to reveal eosinophilic esophagitis or Ramires's metaplasia. Colonoscopy on the same day led to removal of cecal and right colon serrated adenomas and hyperplastic polyps and of a hyperplastic sigmoid polyp. He was found to have proctitis for which canasa was prescribed. Diverticulosis was noted noted. He had coronary stents placed on 2005,2011,2012 and 2014. 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 Cardio/Vascular: Yes: AFIB (paroxysmal), CAD (S/P Stent S/P cardiac cath in Mar 2013.), HTN, Hyperlipdemia, [place], Other (cardiac arrest/[place] 2005) Pulmonary: Yes: COPD Gastrointestinal: Yes: Diverticulosis, GERD, Other (colon polyps including serrated adenomas, proctitis) Renal/: Yes: BPH (caused urosepsis), Renal Calculi Infectious Disease: Yes: Other (dog bite required rabies injections) Psych: Yes: Anxiety, Panic Musculoskeletal: Yes: Chronic low back pain (herniated lumbar discs), Osteoarthritis (knees), Other (recent fracture Rt Tibia- no surgery due to cardiac issues) Dermatology: Yes: Basal Cell (basal cell carcinoma excised from right subclavicular area) - Past Surgical History Past Surgical History: Yes: Arthrosocopy (left knee meniscus), Cholecystectomy ( laparoscopic), Colonoscopy, Orchiectomy (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 reattachment of avulsed right 5th hand digit - Alcohol/Substance Use Hx Alcohol Use: Yes (moderate) History of Substance Use: reports: None - Smoking History Smoking history: Former smoker Have you smoked in the past 12 months: No Aproximately how many cigarettes per day: 60 If you are a former smoker, when did you quit?: 1989 - Social History Usual Living Arrangement: Alone ADL: Family Assistance Occupation: disabled former [employer] employee Place of : [facility] History of Recent Travel: No Home Medications - Allergies Allergies/Adverse Reactions: Allergies Allergy/AdvReac Type Severity Reaction Status Date / Time Shellfish Allergy Unknown Verified 08/09/16 15:47 Iodinated Contrast Media - AdvReac Intermediate Verified 08/09/16 15:47 Oral and - Home Medications Home Medications: Ambulatory Orders Albuterol 0.083% Nebulizer Jessy [Ventolin 0.083% Nebulizer Soln -] 1 neb NEB TID PRN 09/09/14 Clopidogrel Bisulfate [Plavix -] 75 mg PO DAILY 09/09/14 Cyanocobalamin (Vitamin B-12) [Vitamin B-12] 1,000 mcg PO DAILY 09/09/14 Fish Oil/Borage/Flax/Om3,6,9#1 [[place] 3-6-9 1,200 mg Softgel] 2 cap PO BID 09/09 Folic Acid - 1 mg PO HS 09/09/14 Lisinopril [Prinivil -] 2.5 mg PO DAILY 09/09/14 Metoprolol Succinate [Toprol XL -] 25 mg PO BID 09/09/14 Montelukast Na [Singulair -] 10 mg PO HS 09/09/14 Multivitamins [Multivit ([facility] Formulary)] 1 tab PO DAILY 09/09/14 Nitroglycerin Sublingual [Nitrostat -] 0.4 mg SL ASDIR PRN 09/09/14 Potassium 99 mg PO DAILY 09/09/14 Sucralfate 1 gm PO ACHS 09/09/14 Zolpidem Tartrate [Ambien] 10 mg PO HS PRN 09/09/14 Diltiazem Cd [Cardizem Cd -] 240 mg PO DAILY 11/14/14 Finasteride [Proscar] 5 mg PO DAILY 11/14/14 Magnesium Chloride [Slow-Mag -] 143 mg PO BID 11/14/14 Pravastatin Sodium [Pravachol -] 40 mg PO HS 11/14/14 Tamsulosin HCl [Flomax -] 0.4 mg PO DAILY 11/14/14 Dabigatran Etexilate Mesylate [Pradaxa -] 150 mg PO BID 07/23/16 Prednisone [Deltasone -] 10 mg PO DAILY 07/23/16 Ranitidine [Zantac -] 150 mg PO BID #0 07/24/16 Aspirin [Ecotrin] 81 mg PO BID 08/09/16 Hydrocodone/Acetaminophen [Lorcet Hd 10-325 mg Tablet] 1 each PO TID PRN Albuterol Sulfate Inhaler - [Ventolin Hfa Inhaler -] 1 - 2 inh PO BID PRN Fluticasone Prop 0.05% Nasal [Flonase -] 1 - 2 spray NS BID PRN 08/10/16 Family Disease History - Family Disease History Family Disease History: CA: Father (lung cancer), Mother (colon cancer) Review of Systems - Review of Systems Constitutional: reports: No Symptoms Eyes: reports: No Symptoms HENT: reports: Difficult Swallowing (pain on swallowing x 2 days) Neck: reports: No Symptoms Cardiovascular: reports: Chest Pain Respiratory: reports: No Symptoms Gastrointestinal: reports: Dysphagia, Other (acid reflux) Genitourinary: reports: No Symptoms Musculoskeletal: reports: Back Pain, Joint Pain, Muscle Pain Neurological: reports: No Symptoms Endocrine: reports: No Symptoms Psychiatric: reports: No Symptoms Physical Exam-GI Vital Signs: Vital Signs Temperature 98.0 F 08/10/16 10:00 Pulse Rate 84 08/10/16 10:00 Respiratory Rate 20 08/10/16 10:00 Blood Pressure 101/77 08/10/16 10:00 O2 Sat by Pulse Oximetry (%) 98 08/10/16 05:00 CBC,CMP WBC 10.9 K/mm3 (4.0-10.0) H 08/10/16 06:20 RBC 4.37 M/mm3 (4.00-5.60) 08/10/16 06:20 Hgb 12.5 GM/dL (11.7-16.9) 08/10/16 06:20 Hct 38.2 % (35.4-49) 08/10/16 06:20 MCV 87.4 fl (80-96) 08/10/16 06:20 MCHC 32.8 g/dl (32.0-35.9) 08/10/16 06:20 RDW 14.4 % (11.9-15.9) 08/10/16 06:20 Plt Count 301 K/MM3 (134-434) 08/10/16 06:20 MPV 7.8 fl (7.5-11.1) 08/10/16 06:20 Neutrophils % 70.6 % (42.8-82.8) 08/10/16 06:20 Lymphocytes % 18.4 % (8-40) D 08/10/16 06:20 Monocytes % 9.7 % (3.8-10.2) D 08/10/16 06:20 Eosinophils % 1.0 % (0-4.5) D 08/10/16 06:20 Basophils % 0.3 % (0-2.0) 08/10/16 06:20 Sodium 144 mmol/L (136-145) 08/10/16 06:20 Potassium 4.1 mmol/L (3.5-5.1) 08/10/16 06:20 Chloride 107 mmol/L (98-107) 08/10/16 06:20 Carbon Dioxide 29 mmol/L (21-32) 08/10/16 06:20 Anion Gap 8 (8-16) 08/10/16 06:20 BUN 11 mg/dL (7-18) D 08/10/16 06:20 Creatinine 0.8 mg/dL (0.7-1.3) 08/10/16 06:20 Creat Clearance w eGFR > 60 (>60) 08/10/16 06:20 Random Glucose 91 mg/dL (74-106) 08/10/16 06:20 Calcium 9.0 mg/dL (8.5-10.1) 08/10/16 06:20 Total Bilirubin 0.4 mg/dL (0.2-1.0) D 08/10/16 06:20 AST 20 U/L (15-37) D 08/10/16 06:20 ALT 48 U/L (12-78) 08/10/16 06:20 Alkaline Phosphatase 56 U/L (45-117) 08/10/16 06:20 Creatine Kinase 46 IU/L (39-308) 08/10/16 10:35 Troponin I < 0.02 ng/ml (0.00-0.05) 08/10/16 10:35 Total Protein 6.3 g/dl (6.4-8.2) L 08/10/16 06:20 Albumin 3.6 g/dl (3.4-5.0) 08/10/16 06:20 Lipase 135 U/L (73-393) 08/09/16 16:25 Current Medications Generic Name Dose Route Start Last Admin Trade Name Freq PRN Reason Stop Dose Admin Acetaminophen 325 mg 08/09/16 22:40 08/10/16 06:36 Tylenol - PO 325 mg Q8H PRN Administration PAIN Al Hydroxide/Mg Hydroxide 30 ml 08/10/16 11:40 Mylanta Oral Suspension - PO Q6H PRN DYSPEPSIA Albuterol Sulfate 1 amp 08/09/16 21:08 Ventolin 0.083% Nebulizer Soln - NEB QID PRN ASTHMA Aspirin 81 mg 08/10/16 10:00 08/10/16 09:43 Ecotrin - PO 81 mg DAILY OMID Administration Atorvastatin Calcium 10 mg 08/09/16 22:15 08/09/16 22:34 Lipitor - PO 10 mg HS OMID Administration Clopidogrel Bisulfate 75 mg 08/10/16 10:00 08/10/16 09:42 Plavix - PO 75 mg DAILY OMID Administration Dabigatran 150 mg 08/09/16 22:00 08/10/16 09:44 Pradaxa - PO 150 mg BID OMID Administration Diltiazem HCl 240 mg 08/10/16 10:00 08/10/16 09:43 Cardizem Cd - PO 240 mg DAILY OMID Administration Finasteride 5 mg 08/10/16 10:00 08/10/16 09:44 Proscar - PO 5 mg DAILY OMID Administration Lisinopril 2.5 mg 08/10/16 10:00 08/10/16 09:43 Prinivil PO 2.5 mg DAILY OMID Administration Magnesium Chloride 128 mg 08/10/16 22:00 Slow-Mag - PO BID [facility] Metoprolol Succinate 25 mg 08/09/16 22:00 08/10/16 09:45 Toprol Xl - PO 25 mg BID OMID Administration Nitroglycerin 0.4 mg 08/09/16 21:08 Nitrostat - SL ASDIR PRN CHEST PAIN Oxycodone HCl 5 mg 08/09/16 22:40 08/10/16 06:35 Roxicodone - PO 5 mg Q8H PRN Administration PAIN Prednisone 10 mg 08/10/16 10:00 08/10/16 09:42 Deltasone - PO 10 mg DAILY OMID Administration Ranitidine HCl 150 mg 08/09/16 22:00 08/10/16 09:43 Zantac - PO 150 mg BID OMID Administration Sucralfate 1 gm 08/09/16 22:00 08/10/16 09:43 Carafate - PO 1 gm QID OMID Administration Tamsulosin HCl 0.4 mg 08/10/16 10:00 08/10/16 09:42 Flomax - PO 0.4 mg DAILY OMID Administration Zolpidem Tartrate 5 mg 08/09/16 22:00 08/09/16 23:39 Ambien - PO 5 mg HS PRN Administration INSOMNIA Constitutional: Yes: Calm Eyes: Yes: Conjunctiva Clear HENT: Yes: Atraumatic Neck: Yes: Supple Cardiovascular: Yes: Regular Rate and Rhythm Respiratory: Yes: CTA Bilaterally Gastrointestinal Inspection: Yes: Scars (long left vertical paramedian and laparoscopic incisions), Other (Umbilical hernia) ...Auscultate: Yes: Normoactive Bowel Sounds ...Palpate: Yes: Soft, Other (nontender) ...Rectal Exam: Yes: Deferred (due to colonosocpy 2 weeks ago) Genitourinary: Yes: Other (absent left testicle) Edema: No Peripheral Pulses WNL: Yes Neurological: Yes: Alert, Oriented Psychiatric: Yes: Alert Labs: CBC, BMP 08/10/16 06:20 08/10/16 06:20 INR, PTT INR 1.23 (0.82-1.09) H 08/09/16 16:25 Laboratory Tests 08/09/16 08/10/16 08/10/16 16:25 06:20 06:20 WBC 10.9 H Hgb 12.5 Total Bilirubin 0.4 D AST 20 D ALT 48 Alkaline Phosphatase 56 Albumin 3.6 Lipase 135 Problem List - Problems (1) GERD with esophagitis Code(s): K21.0 - GASTRO-ESOPHAGEAL REFLUX DISEASE WITH ESOPHAGITIS (2) Proctitis Code(s): K62.89 - OTHER SPECIFIED DISEASES OF ANUS AND RECTUM (3) Diverticula of colon Code(s): K57.30 - DVRTCLOS OF LG INT W/O PERFORATION OR ABSCESS W/O BLEEDING (4) Colon adenomas Code(s): D12.6 - BENIGN NEOPLASM OF COLON, UNSPECIFIED (5) Esophageal spasm Code(s): K22.4 - DYSKINESIA OF ESOPHAGUS (6) Teratoma of testis Code(s): C62.90 - MALIG NEOPLASM OF UNSP TESTIS, UNSP DESCENDED OR UNDESCENDED (7) Hx laparoscopic cholecystectomy Code(s): Z90.49 - ACQUIRED ABSENCE OF OTHER SPECIFIED PARTS OF DIGESTIVE TRACT (8) BPH (benign prostatic hypertrophy) with urinary obstruction Code(s): N40.1 - BENIGN PROSTATIC HYPERPLASIA WITH LOWER URINARY TRACT SYMP N13.8 - OTHER OBSTRUCTIVE AND REFLUX UROPATHY (9) COPD (chronic obstructive pulmonary disease) Code(s): J44.9 - CHRONIC OBSTRUCTIVE PULMONARY DISEASE, UNSPECIFIED (10) Hx of cardiac arrest Code(s): Z86.74 - PERSONAL HISTORY OF SUDDEN CARDIAC ARREST (11) Arthritis Code(s): M19.90 - UNSPECIFIED OSTEOARTHRITIS, UNSPECIFIED SITE (12) Lumbar disc disease Code(s): M51.9 - UNSP THORACIC, THORACOLUM AND LUMBOSACR INTVRT DISC DISORDER (13) Myocardial infarction, old Code(s): I25.2 - OLD MYOCARDIAL INFARCTION Assessment/Plan Although Arben has a h/o esophageal spasms this chest pain is due to dysphagia likely related to reflux as my biopsy site or a new food or medication (aspirin ) caused erosion. I have advised antacids q6h and PPI therapy. As he is tolerating diet and was cleared by the vacation guide I have no objections to discharge. Discussed with Dr Cobb. He has been instructed to also resume his canasa suppositories for his proctitis.
--- NOTE | 2016-08-10 13:09 | DS ---
Physical Examination Vital Signs: Vital Signs Temperature 98.0 F 08/10/16 10:00 Pulse Rate 84 08/10/16 10:00 Respiratory Rate 20 08/10/16 10:00 Blood Pressure 101/77 08/10/16 10:00 O2 Sat by Pulse Oximetry (%) 98 08/10/16 05:00 Labs: CBC, BMP 08/10/16 06:20 08/10/16 06:20 Discharge Summary Reason For Visit: CHEST PAIN Current Active Problems Anticoagulation adequate (Acute) CAD (coronary artery disease) (Acute) Chest pain (Acute) HLD (hyperlipidemia) (Acute) HTN (hypertension) (Acute) Paroxysmal a-fib (Acute) Right leg pain (Acute) Hospital Course: see H & P Condition: Improved - Instructions Referrals: David Quiñonez MD [Primary Care Provider] - Disposition: HOME - Home Medications Comprehensive Discharge Medication List: Ambulatory Orders Albuterol 0.083% Nebulizer Jessy [Ventolin 0.083% Nebulizer Soln -] 1 neb NEB TID PRN 09/09/14 Clopidogrel Bisulfate [Plavix -] 75 mg PO DAILY 09/09/14 Cyanocobalamin (Vitamin B-12) [Vitamin B-12] 1,000 mcg PO DAILY 09/09/14 Fish Oil/Borage/Flax/Om3,6,9#1 [[place] 3-6-9 1,200 mg Softgel] 2 cap PO BID 09/09 Folic Acid - 1 mg PO HS 09/09/14 Lisinopril [Prinivil -] 2.5 mg PO DAILY 09/09/14 Metoprolol Succinate [Toprol XL -] 25 mg PO BID 09/09/14 Montelukast Na [Singulair -] 10 mg PO HS 09/09/14 Multivitamins [Multivit ([facility] Formul[facility])] 1 tab PO DAILY 09/09/14 Nitroglycerin Sublingual [Nitrostat -] 0.4 mg SL ASDIR PRN 09/09/14 Potassium 99 mg PO DAILY 09/09/14 Sucralfate 1 gm PO ACHS 09/09/14 Zolpidem Tartrate [Ambien] 10 mg PO HS PRN 09/09/14 Diltiazem Cd [Cardizem Cd -] 240 mg PO DAILY 11/14/14 Finasteride [Proscar] 5 mg PO DAILY 11/14/14 Magnesium Chloride [Slow-Mag -] 143 mg PO BID 11/14/14 Pravastatin Sodium [Pravachol -] 40 mg PO HS 11/14/14 Tamsulosin HCl [Flomax -] 0.4 mg PO DAILY 11/14/14 Dabigatran Etexilate Mesylate [Pradaxa -] 150 mg PO BID 07/23/16 Prednisone [Deltasone -] 10 mg PO DAILY 07/23/16 Ranitidine [Zantac -] 150 mg PO BID #0 07/24/16 Aspirin [Ecotrin] 81 mg PO BID 08/09/16 Hydrocodone/Acetaminophen [[place] Hd 10-325 mg Tablet] 1 each PO TID PRN Albuterol Sulfate Inhaler - [Ventolin HFA Inhaler -] 1 - 2 inh PO BID PRN Fluticasone Prop 0.05% Nasal [Flonase -] 1 - 2 spray NS BID PRN 08/10/16
[2016-08-10] MEDS ORDERED: MAGNESIUM CL 64 MG TABLET.SA PO SCH (22:00)
--- NOTE | 2016-08-11 21:14 | EKG ---
Test Reason : Blood Pressure : / mmHG Vent. Rate : 078 BPM Atrial Rate : 078 BPM P-R Int : 174 ms QRS Dur : 098 ms QT Int : 382 ms P-R-T Axes : 067 -16 038 degrees QTc Int : 435 ms NORMAL SINUS RHYTHM EARLY R WAVE PROGRESSION NORMAL ECG WHEN COMPARED WITH ECG OF 09-AUG-2016 15:49, NO SIGNIFICANT CHANGE WAS FOUND Confirmed by MERI MCLAUGHLIN MD ([id number]) on 08/11/2016 9:13:43 PM Referred By: KARIN HEWITT Confirmed By:MERI MCLAUGHLIN MD
--- NOTE | 2016-08-11 21:16 | EKG ---
Test Reason : Blood Pressure : / mmHG Vent. Rate : 070 BPM Atrial Rate : 070 BPM P-R Int : 172 ms QRS Dur : 094 ms QT Int : 396 ms P-R-T Axes : 058 019 039 degrees QTc Int : 427 ms NORMAL SINUS RHYTHM NORMAL ECG WHEN COMPARED WITH ECG OF 12-DEC-2015 09:06, NO SIGNIFICANT CHANGE WAS FOUND Confirmed by MERI MCLAUGHLIN MD ([id number]) on 08/11/2016 9:16:30 PM Referred By: Confirmed By:MERI MCLAUGHLIN MD
== END 2016-08-10 14:30 | disposition home or self-care (01) ==
LOC: JER 15:42 → JERBED 18:10 → J4S 22:17
PROVIDERS: ADMIT Internal Medicine; ATTEND Internal Medicine
DX: K21.9 Gastro-esophageal reflux disease without esophagitis (principal); I25.119 Atherosclerotic heart disease of native coronary artery with unspecified angina pectoris; Z95.5 Presence of coronary angioplasty implant and graft; J44.9 Chronic obstructive pulmonary disease, unspecified; J45.909 Unspecified asthma, uncomplicated; N40.0 Benign prostatic hyperplasia without lower urinary tract symptoms; I10 Essential (primary) hypertension; E78.5 Hyperlipidemia, unspecified; Z87.891 Personal history of nicotine dependence; I48.0 Paroxysmal atrial fibrillation; Z79.01 Long term (current) use of anticoagulants; G62.9 Polyneuropathy, unspecified; K22.4 Dyskinesia of esophagus; I25.2 Old myocardial infarction; F41.9 Anxiety disorder, unspecified
CPT/HCPCS: 36415; 71010-TC; 80053; 81003; 82550; 83690; 84484; 85025; 85610; 93005; 93010; 99285-25; G0378

== ENCOUNTER 2016-12-25 08:56 | Inpatient (IN) | payer OTHER ==
--- NOTE | 2016-12-25 09:10 | PDOC ---
History of Present Illness <Braeden Peck - Last Filed: 12/25/16 10:58> - General History Source: Patient Exam Limitations: No Limitations - History of Present Illness Initial Comments: 12/25/16 09:32 The patient is a 61 year old male, with a significant past medical history of an MN (3-4 years ago, was placed on Coumadin and has discontinued it since 3 years ago), paroxysmal AFib, CAD(s/p stent and cardiac cath in 2012), hypertension, hyperlipidemia, COPD, GERD, BPH, and peripheral neuropathy, who presents to the emergency department complaining of chest pain since earlier this morning. The patient states the chest pain began this morning and woke him out of his sleep. He describes the pain as a constant flutter, as if someone were stepping on his chest. Patient reports this discomfort prompted him to measure his blood pressure earlier, which was slightly elevated. He states his pulse fluctuated between 75 and 140, and he called EMS. When EMS arrived on scene, the patient was given a nitroglycerin which slightly decreased his BP. Patient reports some SOB and SOB with exertion. He denies any associated diaphoresis or lower extremity edema. He denies any fever, chills, cough, headache, or dizziness. 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 He states his last AFib episode was approximately 1.5 years ago. Allergies: Iodinated Contrast Media, Shellfish Past Surgical History: Lymph nodes, Multiple Cardiac Stents, Cardiac Catheterization, Cholecystectomy, ORIF left arm, Left knee arthroscopy Social Histoy: Former Smoker(Quit 1989). No ETOH or recreational drug use. PCP: Dr. Cobb/ Dr. 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) Cardiac Disorders: Yes (CAD, ANGINA, Multiple STENT, PAFIB, MN) CVA: No COPD: Yes CHF: Yes (unsure) DVT: No Dementia: No Diabetes: No GI Disorders: Yes (DIVERTICULOSIS,ESOPHAGEAL DYSMOTILITY, GERD, spasmatic esophagus) Disorders: Yes (BPH) HTN: Yes Hypercholesterolemia: Yes Kidney Stones: Yes Liver Disease: Yes (NAFLD) Suicide Attempt (Hx): No Seizures: No Thyroid Disease: No - Surgical History Abdominal Surgery: Yes (lymph nodes) Appendectomy: No Cardiac Surgery: Yes (multiple stents) Cholecystectomy: Yes (LAPAROSCOPIC) Lung Surgery: No Neurologic Surgery: No Orthopedic Surgery: Yes (ORIF Left Arm,Left Knee Arthroscopy,) - Immunization History Td Vaccination: (2006) Immunization Up to Date: Yes - Psycho/Social/Smoking Cessation Hx Anxiety: No Suicidal Ideation: No Smoking Status: Yes Smoking History: Former smoker Years of Tobacco Use: 21 Have you smoked in the past 12 months: No Number of Cigarettes Smoked Daily: 60 If you are a former smoker, when did you quit?: 1989 Information on smoking cessation initiated: No Hx Alcohol Use: No Drug/Substance Use Hx: No Substance Use Type: None Hx Substance Use Treatment: No <Braeden Peck - Last Filed: 12/25/16 10:58> <Adelfo Bell - Last Filed: 12/25/16 12:04> - Past Medical History Allergies/Adverse Reactions: Allergies Allergy/AdvReac Type Severity Reaction Status Date / Time Shellfish Allergy Unknown Verified 12/25/16 09:06 Iodinated Contrast Media - AdvReac Intermediate Verified 12/25/16 09:06 Oral and Home Medications: Ambulatory Orders Albuterol Sulfate Inhaler - [Ventolin Hfa Inhaler -] 1 - 2 inh PO QID PRN Aspirin [ASA -] 81 mg PO DAILY 12/25/16 Clopidogrel Bisulfate [Plavix -] 75 mg PO DAILY 12/25/16 Cyanocobalamin (Vitamin B-12) [Vitamin B12] 0 mcg PO DAILY 12/25/16 Dabigatran Etexilate Mesylate [Pradaxa -] 150 mg PO BID 12/25/16 Diltiazem Cd [Cardizem Cd -] 240 mg PO DAILY 12/25/16 Finasteride [Proscar] 5 mg PO DAILY 12/25/16 Fluticasone Prop 0.05% Nasal [Flonase -] 1 - 2 spray NS PRN PRN 12/25/16 Folic Acid 1 mg PO DAILY 12/25/16 Lisinopril [Zestril] 2.5 mg PO DAILY 12/25/16 Magnesium Chloride [Slow-Mag -] 64 mg PO DAILY 12/25/16 Metoprolol Succinate [Toprol Xl -] 25 mg PO BID 12/25/16 Montelukast Na [Singulair -] 10 mg PO HS 12/25/16 Nitroglycerin [Nitrostat] 0.4 mg SL PRN PRN 12/25/16 [place]-3S/Dha/Epa/Fish Oil [Fish Oil [place]-3 Softgel] 2 each PO BID 12/25/16 Pantoprazole Sodium 40 mg PO HS 12/25/16 Potassium 0 mg PO DAILY 12/25/16 Pravastatin Sodium [Pravachol (Nf)] 40 mg PO HS 12/25/16 Prednisone 10 mg PO DAILY 12/25/16 Ranitidine [Zantac -] 150 mg PO HS 12/25/16 Sucralfate [Carafate -] 1 gm PO QID 12/25/16 Tamsulosin HCl [Flomax] 0.4 mg PO DAILY 12/25/16 Zolpidem Tartrate [Ambien] 10 mg PO HS 12/25/16 Review of Systems - Review of Systems Able to Perform ROS?: Yes Comments:: 12/25/16 09:36 GENERAL/CONSTITUTIONAL: No fever or chills. No weakness. HEAD, EYES, EARS, NOSE AND THROAT: No change in vision. No ear pain or discharge. No sore throat. CARDIOVASCULAR: Yes: +Chest pain, +shortness of breath, +palpitations. No diaphoresis. RESPIRATORY: No cough, wheezing, or hemoptysis. GASTROINTESTINAL: No nausea, vomiting, diarrhea or constipation. GENITOURINARY: No dysuria, frequency, or change in urination. MUSCULOSKELETAL: No joint or muscle swelling or pain. No neck or back pain. SKIN: No rash NEUROLOGIC: No headache, vertigo, loss of consciousness, or change in strength/ sensation. ENDOCRINE: No increased thirst. No abnormal weight change. HEMATOLOGIC/LYMPHATIC: No anemia, easy bleeding, or history of blood clots. ALLERGIC/IMMUNOLOGIC: No hives or skin allergy. <Adelfo Bell - Last Filed: 12/25/16 12:04> *Physical Exam - Vital Signs Last Vital Signs Temp Pulse Resp BP Pulse Ox 98.9 F 88 18 111/76 98 12/25/16 09:00 12/25/16 09:00 12/25/16 09:00 12/25/16 09:00 12/25/16 09:00 <Braeden Peck - Last Filed: 12/25/16 10:58> - Vital Signs Last Vital Signs Temp Pulse Resp BP Pulse Ox 98.9 F 88 18 111/76 98 12/25/16 09:00 12/25/16 09:00 12/25/16 09:00 12/25/16 09:00 12/25/16 09:00 - Physical Exam Comments: 12/25/16 09:35 GENERAL: Awake, alert, and fully oriented, in no acute distress HEAD: No signs of trauma EYES: PERRLA, EOMI, sclera anicteric, conjunctiva clear ENT: Auricles normal inspection, hearing grossly normal, nares patent, oropharynx clear without exudates. Moist mucosa NECK: Normal ROM, supple, no lymphadenopathy, JVD, or masses LUNGS: Breath sounds equal, clear to auscultation bilaterally. No wheezes, and no crackles. No rales or ronchi. HEART: Irregularly irregular. No murmurs, rubs or gallops ABDOMEN: Soft, nontender, normoactive bowel sounds. No guarding, no rebound. No masses EXTREMITIES: Normal range of motion, no edema. No clubbing or cyanosis. No cords , erythema, or tenderness NEUROLOGICAL: Cranial nerves II through XII grossly intact. Normal speech, normal gait SKIN: Warm, Dry, normal turgor, no rashes or lesions noted. <Adelfo Bell - Last Filed: 12/25/16 12:04> Heart Score/ECG Review - ECG Intrepretation Comment:: 12/25/16 09:33 EMS ECG IMPRESSION: AFib. Rate of 130. Nonspecific ST-T changes and normal axis. ER ECG Vent Rate: 80 bpm IMPRESSION: Atrial Fibrillation. Incomplete right bundle branch block. Repeat ECG Vent Rate: 76 bpm IMPRESSION: Sinus rhythm with marked sinus arrhythmia. <Adelfo Bell - Last Filed: 12/25/16 12:04> ED Treatment Course - LABORATORY CBC & Chemistry Diagram: 12/25/16 09:24 12/25/16 09:20 <Braeden Peck - Last Filed: 12/25/16 10:58> - LABORATORY CBC & Chemistry Diagram: 12/25/16 09:24 12/25/16 09:20 - RADIOLOGY Radiograph Interpretation: 12/25/16 12:04 EXAM: CXR INTERPRETED BY: Dr. Samano REVIEWED BY: Dr. Peck IMPRESSION: No evidence of active pulmonary disease. - Medications Given in the ED: ED Medications Discontinued Medications Generic Name Dose Route Start Last Admin Trade Name Shaun PRN Reason Stop Dose Admin Aspirin 162 mg 12/25/16 09:17 12/25/16 09:22 Asa - PO 12/25/16 09:18 162 mg ONCE ONE Administration <Adelfo Bell - Last Filed: 12/25/16 12:04> Medical Decision Making - Medical Decision Making 12/25/16 11:01 First call placed to Dr. Cobb at 10:59. Awaiting call back. Case discussed with Dr. Cobb at 11:23. <Adelfo Bell - Last Filed: 12/25/16 12:04> *DC/Admit/Observation/Transfer - Discharge Dispostion Admit: Yes - Attestations Physician Attestion: 12/25/16 09:09 I, Dr. Braeden Peck, attest that this document has been prepared under my direction and personally reviewed by me in its entirety. I further attest, that it accurately reflects all work, treatment, procedures and medical decision -making performed by me. <Braeden Peck - Last Filed: 12/25/16 10:58> - Attestations Scribe Attestion: 12/25/16 09:38 Documentation prepared by Adelfo Bell, acting as medical device sales for Braeden Peck DO. <Adelfo Bell - Last Filed: 12/25/16 12:04> Diagnosis at time of Disposition: Paroxysmal atrial fibrillation with rapid ventricular response, CAD (coronary artery disease) - Discharge Dispostion Condition at time of disposition: Improved - Referrals
[2016-12-25] MEDS ORDERED: ASPIRIN 81 MG CHEWABLE TABLETS PO ONE (09:17)
[2016-12-25] MEDS ORDERED: ASPIRIN 81 MG CHEWABLE TABLETS ONE (09:27)
[2016-12-25 09:57] LABS: BASOPHIL 0.4 % (0-2.0); MCH 27.9 pg (25.7-33.7); MCHC 32.2 g/dl (32.0-35.9); MEAN CELL VOLUME 86.8 fl (80-96); NEUTROPHILS 71.4 % (42.8-82.8); PLATELET COUNT 298 K/MM3 (134-434)
--- NOTE | 2016-12-25 10:00 | CON.CARD ---
Consult Consult Specialty:: cardiology Reason for Consultation:: cp/palpitations - History of Present Illness History of Present Illness: The patient is a 61 year old male, with a significant past medical history of an SD (3-4 years ago, was placed on Coumadin and has discontinued it since 3 years ago), paroxysmal AFib, CAD(s/p stent and cardiac cath in 2012), hypertension, hyperlipidemia, COPD, GERD, BPH, and peripheral neuropathy, who presents to the emergency department complaining of chest pain since earlier this morning. The patient states the chest pain began this morning and woke him out of his sleep. He describes the pain as a constant flutter, as if someone were stepping on his chest. Patient reports this discomfort prompted him to measure his blood pressure earlier, which was slightly elevated. He states his pulse fluctuated between 75 and 140, and he called EMS. When EMS arrived on scene, the patient was given a nitroglycerin which slightly decreased his BP. Patient reports some SOB and SOB with exertion. He denies any associated diaphoresis or lower extremity edema. He denies any fever, chills, cough, headache, or dizziness. 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 He states his last AFib episode was approximately 1.5 years ago. Allergies: Iodinated Contrast Media, Shellfish Past Surgical History: Lymph nodes, Multiple Cardiac Stents, Cardiac Catheterization, Cholecystectomy, ORIF left arm, Left knee arthroscopy Social Histoy: Former Smoker(Quit 1989). No ETOH or recreational drug use. PCP: Dr. Cobb/ Dr. Lexii Quiñonez Peoples[employer] Consultant: Dr. 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 Afib) Pulmonary: Yes: Cancer, COPD Gastrointestinal: Yes: GERD Renal/: Yes: BPH Infectious Disease: Yes: Other (dog bite required rabies injections) Psych: Yes: Anxiety, Panic Musculoskeletal: Yes: Other (recent fracture Rt Tibia- no surgery due to cardiac issues) Endocrine: Yes: Diabetes Mellitus Dermatology: Yes: Basal Cell (basal cell carcinoma excised from right subclavicular area) - Past Surgical History Past Surgical History: Yes: Stent (recent stent was in Mar 2013.) - Alcohol/Substance Use Hx Alcohol Use: No History of Substance Use: reports: None - Smoking History Smoking history: Former smoker Have you smoked in the past 12 months: No Aproximately how many cigarettes per day: 60 If you are a former smoker, when did you quit?: 1989 - Social History Usual Living Arrangement: Alone ADL: Family Assistance Occupation: disabled former [employer] employee History of Recent Travel: No Home Medications - Allergies Allergies/Adverse Reactions: Allergies Allergy/AdvReac Type Severity Reaction Status Date / Time Shellfish Allergy Unknown Verified 12/25/16 09:06 Iodinated Contrast Media - AdvReac Intermediate Verified 12/25/16 09:06 Oral and - Home Medications Home Medications: Ambulatory Orders Albuterol Sulfate Inhaler - [Ventolin Hfa Inhaler -] 1 - 2 inh PO QID PRN Aspirin [ASA -] 81 mg PO DAILY 12/25/16 Clopidogrel Bisulfate [Plavix -] 75 mg PO DAILY 12/25/16 Cyanocobalamin (Vitamin B-12) [Vitamin B12] 0 mcg PO DAILY 12/25/16 Dabigatran Etexilate Mesylate [Pradaxa -] 150 mg PO BID 12/25/16 Diltiazem Cd [Cardizem Cd -] 240 mg PO DAILY 12/25/16 Finasteride [Proscar] 5 mg PO DAILY 12/25/16 Fluticasone Prop 0.05% Nasal [Flonase -] 1 - 2 spray NS PRN PRN 12/25/16 Folic Acid 1 mg PO DAILY 12/25/16 Lisinopril [Zestril] 2.5 mg PO DAILY 12/25/16 Magnesium Chloride [Slow-Mag -] 64 mg PO DAILY 12/25/16 Metoprolol Succinate [Toprol Xl -] 25 mg PO BID 12/25/16 Montelukast Na [Singulair -] 10 mg PO HS 12/25/16 Nitroglycerin [Nitrostat] 0.4 mg SL PRN PRN 12/25/16 [place]-3S/Dha/Epa/Fish Oil [Fish Oil [place]-3 Softgel] 2 each PO BID 12/25/16 Pantoprazole Sodium 40 mg PO HS 12/25/16 Potassium 0 mg PO DAILY 12/25/16 Pravastatin Sodium [Pravachol (Nf)] 40 mg PO HS 12/25/16 Prednisone 10 mg PO DAILY 12/25/16 Ranitidine [Zantac -] 150 mg PO HS 12/25/16 Sucralfate [Carafate -] 1 gm PO QID 12/25/16 Tamsulosin HCl [Flomax] 0.4 mg PO DAILY 12/25/16 Zolpidem Tartrate [Ambien] 10 mg PO HS 12/25/16 Family Disease History - Family Disease History Family Disease History: CA: Father (lung cancer), Mother (colon cancer) Vital Signs: Vital Signs Temperature 98.9 F 12/25/16 09:00 Pulse Rate 88 12/25/16 09:00 Respiratory Rate 18 12/25/16 09:00 Blood Pressure 111/76 12/25/16 09:00 O2 Sat by Pulse Oximetry (%) 98 12/25/16 09:00 Assessment/Plan af ashd angina doubt chf - bnp wnl and cxr no i/e htn hlp copd plan; telemetry r/o mi cont ac cont asa cont rate control with cardizem
[2016-12-25 10:09] LABS: INR 1.12 (0.82-1.09); PROTHROMBIN TIME (PATIENT) 12.3 SEC (9.98-11.88)
[2016-12-25] MEDS ORDERED: FUROSEMIDE 40 MG/4 ML INJECTABLE VIAL IVPUSH ONE (10:11)
[2016-12-25 10:12] LABS: ACTIVATED PTT 37.6 SECONDS (26.9-34.4)
[2016-12-25 10:17] LABS: ALBUMIN 3.5 g/dl (3.4-5.0); ALK PHOS 50 U/L (45-117); ANION GAP 9 (8-16); BILIRUBIN,TOTAL 0.1 mg/dL (0.2-1.0); CALCIUM 9.4 mg/dL (8.5-10.1); CO2 26 mmol/L (21-32); CREATININE 0.9 mg/dL (0.7-1.3); GLUCOSE,RANDOM 99 mg/dL (74-106); MAGNESIUM 2.2 mg/dL (1.8-2.4); SGOT/AST 27 U/L (15-37); SGPT/ALT 60 U/L (12-78); TOT PROT 6.5 g/dl (6.4-8.2)
[2016-12-25 10:19] LABS: TROPONIN I < 0.02 ng/ml (0.00-0.05)
[2016-12-25] MEDS ORDERED: FUROSEMIDE 40 MG/4 ML INJECTABLE VIAL ONE (10:34)
[2016-12-25] MEDS ORDERED: ONDANSETRON 4 MG/2 ML VIAL IVPUSH ONE (10:39)
[2016-12-25] MEDS ORDERED: ONDANSETRON 4 MG/2 ML VIAL ONE (10:40)
[2016-12-25] MEDS ORDERED: NITROGLYCERIN SUBLINGUAL 1/150 0.4 MG TAB SL PRN (11:11)
[2016-12-25] MEDS ORDERED: ALBUTEROL SO4 6.7 GM HFA INHALER IH PRN (11:11)
--- NOTE | 2016-12-25 11:11 | HP ---
Admitting History and Physical - Admission History Source: Patient, Medical Record <uJan Owens - Last Filed: 12/25/16 12:41> - Primary Care Physician PCP: David Quiñonez - Admission Chief Complaint: fast heart rate and chest pain History of Present Illness: ER HISTORY - History of Present Illness Initial Comments: 12/25/16 09:32 The patient is a 61 year old male, with a significant past medical history of an [place] (3-4 years ago, was placed on Coumadin and has discontinued it since 3 years ago), paroxysmal AFib, CAD(s/p stent and cardiac cath in 2012), hypertension, hyperlipidemia, COPD, GERD, BPH, and peripheral neuropathy, who presents to the emergency department complaining of chest pain since earlier this morning. The patient states the chest pain began this morning and woke him out of his sleep. He describes the pain as a constant flutter, as if someone were stepping on his chest. Patient reports this discomfort prompted him to measure his blood pressure earlier, which was slightly elevated. He states his pulse fluctuated between 75 and 140, and he called EMS. When EMS arrived on scene, the patient was given a nitroglycerin which slightly decreased his BP. Patient reports some SOB and SOB with exertion. He denies any associated diaphoresis or lower extremity edema. He denies any fever, chills, cough, headache, or dizziness. Patient reports visiting his Director Of Logistics earlier this week, where he had a normal ECG. He states his last AFib episode was approximately 1.5 years ago. Allergies: Iodinated Contrast Media, Shellfish Past Surgical History: Lymph nodes, Multiple Cardiac Stents, Cardiac Catheterization, Cholecystectomy, ORIF left arm, Left knee arthroscopy Social Histoy: Former Smoker(Quit 1989). No ETOH or recreational drug use. PCP: Dr. Cobb/ Dr. Lexii Quiñonez Director Of Logistics: Dr. Kohli Pt examined by me in ER Daughter at bedside Woke up with fluttering in his chest , checked his pulse using his pulse meter and noted it was fast-- he took his morning Toprol and Cardizem. 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 Afib) Pulmonary: Yes: Cancer, COPD Gastrointestinal: Yes: GERD Renal/: Yes: BPH Infectious Disease: Yes: Other (dog bite required rabies injections) Psych: Yes: Anxiety, Panic Musculoskeletal: Yes: Other (recent fracture Rt Tibia- no surgery due to cardiac issues) Endocrine: Yes: Diabetes Mellitus Dermatology: Yes: Basal Cell (basal cell carcinoma excised from right subclavicular area) - Past Surgical History Past Surgical History: Yes: Stent (recent stent was in Mar 2013.) - Smoking History Smoking history: Former smoker Have you smoked in the past 12 months: No Aproximately how many cigarettes per day: 60 If you are a former smoker, when did you quit?: 1989 - Alcohol/Substance Use Hx Alcohol Use: No History of Substance Use: reports: None - Social History ADL: Family Assistance Occupation: disabled former [employer] employee History of Recent Travel: No <Mehreen Cobb - Last Filed: 12/26/16 11:46> Home Medications <Juan Owens - Last Filed: 12/25/16 12:41> <Mehreen Cobb - Last Filed: 12/26/16 11:46> - Allergies Allergies/Adverse Reactions: Allergies Allergy/AdvReac Type Severity Reaction Status Date / Time Shellfish Allergy Unknown Verified 12/25/16 09:06 Iodinated Contrast Media - AdvReac Intermediate Verified 12/25/16 09:06 Oral and - Home Medications Home Medications: Ambulatory Orders Albuterol Sulfate Inhaler - [Ventolin Hfa Inhaler -] 1 - 2 inh PO QID PRN Aspirin [ASA -] 81 mg PO DAILY 12/25/16 Clopidogrel Bisulfate [Plavix -] 75 mg PO DAILY 12/25/16 Cyanocobalamin (Vitamin B-12) [Vitamin B12] 0 mcg PO DAILY 12/25/16 Dabigatran Etexilate Mesylate [Pradaxa -] 150 mg PO BID 12/25/16 Diltiazem Cd [Cardizem Cd -] 240 mg PO DAILY 12/25/16 Finasteride [Proscar] 5 mg PO DAILY 12/25/16 Fluticasone Prop 0.05% Nasal [Flonase -] 1 - 2 spray NS PRN PRN 12/25/16 Folic Acid 1 mg PO DAILY 12/25/16 Lisinopril [Zestril] 2.5 mg PO DAILY 12/25/16 Magnesium Chloride [Slow-Mag -] 64 mg PO DAILY 12/25/16 Metoprolol Succinate [Toprol Xl -] 25 mg PO BID 12/25/16 Montelukast Na [Singulair -] 10 mg PO HS 12/25/16 Nitroglycerin [Nitrostat] 0.4 mg SL PRN PRN 12/25/16 [place]-3S/Dha/Epa/Fish Oil [Fish Oil [place]-3 Softgel] 2 each PO BID 12/25/16 Pantoprazole Sodium 40 mg PO HS 12/25/16 Potassium 0 mg PO DAILY 12/25/16 Pravastatin Sodium [Pravachol (Nf)] 40 mg PO HS 12/25/16 Prednisone 10 mg PO DAILY 12/25/16 Ranitidine [Zantac -] 150 mg PO HS 12/25/16 Sucralfate [Carafate -] 1 gm PO QID 12/25/16 Tamsulosin HCl [Flomax] 0.4 mg PO DAILY 12/25/16 Zolpidem Tartrate [Ambien] 10 mg PO HS 12/25/16 Family Disease History - Family Disease History Family Disease History: [place]: Father (lung cancer), Mother (colon cancer) <Mehreen Cobb - Last Filed: 12/26/16 11:46> Review of Systems - Review of Systems Constitutional: denies: Chills, Fever, Lethargy, Loss of Appetite, Weakness Cardiovascular: reports: Chest Pain, Palpitations. denies: Shortness of Breath Respiratory: denies: Cough <Mehreen Cobb - Last Filed: 12/26/16 11:46> Physical Examination Vital Signs: Vital Signs Temperature 98.9 F 12/25/16 09:00 Pulse Rate 88 12/25/16 09:00 Respiratory Rate 18 12/25/16 09:00 Blood Pressure 111/76 12/25/16 09:00 O2 Sat by Pulse Oximetry (%) 98 12/25/16 09:00 <Juan Owens - Last Filed: 12/25/16 12:41> Vital Signs: Vital Signs Temperature 98.9 F 12/25/16 09:00 Pulse Rate 88 12/25/16 09:00 Respiratory Rate 18 12/25/16 09:00 Blood Pressure 111/76 12/25/16 09:00 O2 Sat by Pulse Oximetry (%) 98 12/25/16 09:00 Constitutional: Yes: No Distress, Calm Cardiovascular: Yes: Pulse Irregular Respiratory: Yes: CTA Bilaterally Gastrointestinal: Yes: Normal Bowel Sounds, Soft. No: Distention, Tenderness Edema: No Psychiatric: Yes: Alert, Oriented Labs: CBC, BMP 12/25/16 09:24 12/25/16 09:20 <Mehreen Cobb - Last Filed: 12/26/16 11:46> Imaging - Results Chest X-ray: Image Reviewed EKG: Image Reviewed (Afib) <Mehreen Cobb - Last Filed: 12/26/16 11:46> Problem List - Problems (1) CAD (coronary artery disease) Code(s): I25.10 - ATHSCL HEART DISEASE OF [place] CORONARY ARTERY W/O ANG PCTRS (2) HLD (hyperlipidemia) Code(s): E78.5 - HYPERLIPIDEMIA, UNSPECIFIED (3) HTN (hypertension) Code(s): I10 - ESSENTIAL (PRIMARY) HYPERTENSION (4) Paroxysmal atrial fibrillation with rapid ventricular response Code(s): I48.0 - PAROXYSMAL ATRIAL FIBRILLATION <Mehreen Cobb - Last Filed: 12/26/16 11:46> Assessment/Plan PLAN Telemetry admission continue with other meds Cardiology eval check cardiac enzymes -- rule out ACS as he is high risk Echo rate control with Cardizem and Toprol-- rate is controlled now DVT prophylaxis-- Pt is on Pradaxa Time spent 40 min <Mehreen Cobb - Last Filed: 12/26/16 11:46>
--- NOTE | 2016-12-25 11:15 | EKG ---
Test Reason : Blood Pressure : / mmHG Vent. Rate : 080 BPM Atrial Rate : 063 BPM P-R Int : 000 ms QRS Dur : 094 ms QT Int : 366 ms P-R-T Axes : 000 020 033 degrees QTc Int : 422 ms ATRIAL FIBRILLATION INCOMPLETE RIGHT BUNDLE BRANCH BLOCK ABNORMAL ECG WHEN COMPARED WITH ECG OF 10-AUG-2016 10:20, ATRIAL FIBRILLATION HAS REPLACED SINUS RHYTHM Confirmed by KARIN HEWITT MD ([id number]) on 12/25/2016 11:14:39 AM Referred By: Confirmed By:KARIN HEWITT MD
[2016-12-25 11:33] LABS: CHOLESTEROL 201 mg/dL (50-200); LDL CHOLESTEROL (ONLY SJRH) 111 mg/dL (5-100)
[2016-12-25 11:41] LABS: FREE T4 1.03 ng/dl (0.76-1.16); THYROID STIMULATING HORMONE 1.67 uIU/ml (0.358-3.74)
[2016-12-25] MEDS ORDERED: ACETAMINOPHEN 325 MG TABLET (FP) PO PRN (12:25)
[2016-12-25 12:42] VITALS: BMI 36.2
[2016-12-25] MEDS: TAMSULOSIN HCL 0.4 MG CAP.ER.24H (FP) PO SCH (14:35)
[2016-12-25] MEDS: SUCRALFATE 1 GM TABLET (FP) PO SCH ×3 (14:35→21:52)
[2016-12-25] MEDS: FINASTERIDE 5 MG TABLET (FP) PO SCH (14:35)
[2016-12-25 16:27] LABS: TROPONIN I < 0.02 ng/ml (0.00-0.05)
[2016-12-25] MEDS: PANTOPRAZOLE 40 MG TABLET (FP) PO SCH (21:52)
[2016-12-25] MEDS: MONTELUKAST NA 10 MG TABLET PO SCH (21:52)
[2016-12-25] MEDS: DABIGATRAN ETEXILATE MESYLATE 150 MG CAPSULE PO SCH (21:52)
[2016-12-25] MEDS: METOPROLOL SUCCINATE 25 MG TAB.SR.24H (FP) PO SCH (21:53)
[2016-12-25] MEDS: RANITIDINE HCL 150 MG TABLET (FP) PO SCH (21:53)
[2016-12-25] MEDS ORDERED: PATIENT'S OWN MEDICATION (NON-FORMULARY) (Pravastatin Sodium 40 MG) PO SCH (22:00)
[2016-12-25] MEDS ORDERED: ATORVASTATIN CA 10 MG TABLET (FP) PO SCH (22:00)
[2016-12-25] MEDS: oxyCODONE HCL 5 MG TABLET PO PRN (22:01)
[2016-12-25 22:20] LABS: TROPONIN I < 0.02 ng/ml (0.00-0.05)
[2016-12-26] MEDS: ZOLPIDEM TARTRATE 5 MG TABLET PO PRN
[2016-12-26 06:39] LABS: TROPONIN I < 0.02 ng/ml (0.00-0.05)
[2016-12-26 09:13] LABS: ANION GAP 8 (8-16); CALCIUM 8.3 mg/dL (8.5-10.1); CO2 27 mmol/L (21-32); CREATININE 0.9 mg/dL (0.7-1.3); GLUCOSE,RANDOM 92 mg/dL (74-106); SGOT/AST 30 U/L (15-37); SGPT/ALT 52 U/L (12-78)
[2016-12-26 09:15] LABS: ALK PHOS 43 U/L (45-117); BILIRUBIN,TOTAL 0.3 mg/dL (0.2-1.0); TOT PROT 5.4 g/dl (6.4-8.2)
[2016-12-26 09:16] LABS: MCH 27.6 pg (25.7-33.7); MCHC 32.1 g/dl (32.0-35.9); PLATELET COUNT 252 K/MM3 (134-434); RDW 17.5 % (11.9-15.9)
--- NOTE | 2016-12-26 09:20 | PN ---
Progress Note, Physician Chief Complaint: Pt felt "flutters" in his chest last night that last from a few seconds to a minute. No chest pain or dyspnea. History of Present Illness: The patient is a 61 year old white male, with a significant past medical history of an [place] (3-4 years ago), paroxysmal AFib (on Pradaxa for AC), CAD(s/p stent and cardiac cath in 2012),diastolic CHF, hypertension, hyperlipidemia , COPD, GERD, BPH, anxiety, and peripheral neuropathy, who presents to the emergency department complaining of chest pain since earlier this morning. The patient states the chest pain began this morning and woke him out of his sleep. He describes the pain as a constant flutter, as if someone were stepping on his chest. Patient reports this discomfort prompted him to measure his blood pressure earlier, which was slightly elevated. He states his pulse fluctuated between 75 and 140, and he called EMS. When EMS arrived on scene, the patient was given a nitroglycerin which slightly decreased his BP. Patient reports some SOB and SOB with exertion. He denies any associated diaphoresis or lower extremity edema. He denies any fever, chills, cough, headache, or dizziness. Patient reports visiting his Sales Development Coordinator earlier this week, where he had a normal ECG. He states his last AFib episode was approximately 1.5 years ago. Allergies: Iodinated Contrast Media, Shellfish Past Surgical History: Lymph nodes, Multiple Cardiac Stents, Cardiac Catheterization, Cholecystectomy, ORIF left arm, Left knee arthroscopy Social Histoy: Former Smoker(Quit 1989). No ETOH or recreational drug use. PCP: Dr. Cobb/ Dr. Lexii Quiñonez Sales Development Coordinator: Dr. Kohli - Current Medication List Current Medications: Active Medications Acetaminophen (Tylenol -) 325 mg PO Q6H PRN PRN Reason: FEVER OR PAIN Albuterol Sulfate (Ventolin Hfa Inhaler -) 2 puff IH QID PRN PRN Reason: SINUS ISSUES Aspirin (Asa -) 81 mg PO DAILY [facility] Atorvastatin Calcium (Lipitor -) 10 mg PO HS [facility] Last Admin: 12/25/16 21:52 Dose: 10 mg Clopidogrel Bisulfate (Plavix -) 75 mg PO DAILY [facility] Dabigatran (Pradaxa -) 150 mg PO BID [facility] Last Admin: 12/25/16 21:52 Dose: 150 mg Diltiazem HCl (Cardizem Cd -) 240 mg PO DAILY [facility] Finasteride (Proscar -) 5 mg PO DAILY [facility] Last Admin: 12/25/16 14:35 Dose: 5 mg Lisinopril (Prinivil) 2.5 mg PO DAILY [facility] Magnesium Chloride (Slow-Mag -) 64 mg PO DAILY [facility] Metoprolol Succinate (Toprol Xl -) 25 mg PO BID [facility] Last Admin: 12/25/16 21:53 Dose: 25 mg Montelukast Sodium (Singulair -) 10 mg PO HS [facility] Last Admin: 12/25/16 21:52 Dose: 10 mg Nitroglycerin (Nitrostat -) 0.4 mg SL PRN PRN PRN Reason: CHEST PAIN Oxycodone HCl (Roxicodone -) 10 mg PO Q12H PRN PRN Reason: PAIN Last Admin: 12/25/16 22:01 Dose: 10 mg Pantoprazole Sodium (Protonix -) 40 mg PO HS [facility] Last Admin: 12/25/16 21:52 Dose: 40 mg Prednisone (Deltasone -) 10 mg PO DAILY [facility] Ranitidine HCl (Zantac -) 150 mg PO HS [facility] Last Admin: 12/25/16 21:53 Dose: 150 mg Sucralfate (Carafate -) 1 gm PO QID [facility] Last Admin: 12/25/16 21:52 Dose: 1 gm Tamsulosin HCl (Flomax -) 0.4 mg PO DAILY [facility] Last Admin: 12/25/16 14:35 Dose: 0.4 mg Zolpidem Tartrate (Ambien -) 10 mg PO HS PRN PRN Reason: INSOMNIA Last Admin: 12/26/16 00:00 Dose: 10 mg - Objective Vital Signs: Vital Signs Temperature 97.5 F L 12/26/16 06:11 Pulse Rate 70 12/26/16 06:11 Respiratory Rate 20 12/26/16 06:11 Blood Pressure 101/58 12/26/16 06:11 O2 Sat by Pulse Oximetry (%) 96 12/25/16 20:23 Constitutional: Yes: Anxious Eyes: Yes: WNL HENT: Yes: WNL Neck: Yes: WNL Cardiovascular: Yes: Pulse Irregular Respiratory: Yes: Regular Gastrointestinal: Yes: Soft ...Rectal Exam: Yes: Deferred Genitourinary: Yes: Anuria Breast(s): Yes: WNL Musculoskeletal: Yes: Joint Stiffness, Muscle Weakness Extremities: Yes: Cool Edema: No Peripheral Pulses WNL: Yes Integumentary: Yes: WNL Neurological: Yes: WNL Psychiatric: Yes: WNL Labs: CBC, BMP 12/26/16 08:55 INR, PTT INR 1.12 (0.82-1.09) 12/25/16 09:24 Abnormal Lab Results 12/25/16 12/25/16 12/26/16 13:10 21:00 05:30 RDW Monocytes % Calcium 8.3 L Alkaline Phosphatase 43 L Creatine Kinase 38 L 36 L Total Protein 5.4 L Albumin 3.0 L Triglycerides 244 H Total LDL Cholesterol 103 H 12/26/16 08:55 RDW 17.5 H Monocytes % 13.0 H Calcium Alkaline Phosphatase Creatine Kinase Total Protein Albumin Triglycerides Total LDL Cholesterol - ....Imaging Other: Image Reviewed (telemetry: AF with periods of RVR) Problem List - Problems (1) CAD (coronary artery disease) Code(s): I25.10 - ATHSCL HEART DISEASE OF [place] CORONARY ARTERY W/O ANG PCTRS (2) HLD (hyperlipidemia) Assessment/Plan: increase lipitor to 20-40 mg dialy; keep LDL cholesterol < 70 mg/dL and triglycerides < 150 mg/dL. Modify diet: lower fats, salt, portions. Code(s): E78.5 - HYPERLIPIDEMIA, UNSPECIFIED (3) HTN (hypertension) Code(s): I10 - ESSENTIAL (PRIMARY) HYPERTENSION (4) Paroxysmal atrial fibrillation with rapid ventricular response Assessment/Plan: Periods of AF with RVR; Increase metoprolol ER to 25 mg am and 50 mg pm; continue diltiazem CD 240 mg daily. (Addendum: after speaking with Dr. Cobb, it was decided to increase evening dose to 37.5 mg instead of 50 mg daily and observe pt's response ovenight). Code(s): I48.0 - PAROXYSMAL ATRIAL FIBRILLATION (5) Right leg pain Code(s): M79.604 - PAIN IN RIGHT LEG (6) Arthritis Code(s): M19.90 - UNSPECIFIED OSTEOARTHRITIS, UNSPECIFIED SITE (7) BPH (benign prostatic hypertrophy) with urinary obstruction Code(s): N40.1 - BENIGN PROSTATIC HYPERPLASIA WITH LOWER URINARY TRACT SYMP N13.8 - OTHER OBSTRUCTIVE AND REFLUX UROPATHY (8) COPD (chronic obstructive pulmonary disease) Code(s): J44.9 - CHRONIC OBSTRUCTIVE PULMONARY DISEASE, UNSPECIFIED (9) GERD with esophagitis Code(s): K21.0 - GASTRO-ESOPHAGEAL REFLUX DISEASE WITH ESOPHAGITIS
[2016-12-26] MEDS ORDERED: PT OWN MED DRAWER 7, Y5N ONE (09:23)
[2016-12-26] MEDS: DABIGATRAN ETEXILATE MESYLATE 150 MG CAPSULE PO SCH ×2 (09:29→21:03)
[2016-12-26] MEDS: CLOPIDOGREL BISULFATE 75 MG TABLET (FP) PO SCH (09:29)
[2016-12-26] MEDS: TAMSULOSIN HCL 0.4 MG CAP.ER.24H (FP) PO SCH (09:29)
[2016-12-26] MEDS: SUCRALFATE 1 GM TABLET (FP) PO SCH ×4 (09:29→21:03)
[2016-12-26] MEDS: ASPIRIN 81 MG CHEWABLE TABLETS PO SCH (09:29)
[2016-12-26] MEDS: MAGNESIUM CL 64 MG TABLET.SA PO SCH (09:29)
[2016-12-26] MEDS: predniSONE 10 MG TABLET (UD) PO SCH (09:29)
[2016-12-26] MEDS: FINASTERIDE 5 MG TABLET (FP) PO SCH (09:29)
[2016-12-26] MEDS: METOPROLOL SUCCINATE 25 MG TAB.SR.24H (FP) PO SCH (09:29)
--- NOTE | 2016-12-26 09:57 | PN ---
Progress Note, Physician Chief Complaint: no complaints had a flutter feeling in his chest last night - Current Medication List Current Medications: Active Medications Acetaminophen (Tylenol -) 325 mg PO Q6H PRN PRN Reason: FEVER OR PAIN Last Admin: 12/26/16 09:35 Dose: 325 mg Albuterol Sulfate (Ventolin Hfa Inhaler -) 2 puff IH QID PRN PRN Reason: SINUS ISSUES Aspirin (Asa -) 81 mg PO DAILY [facility] Last Admin: 12/26/16 09:29 Dose: 81 mg Atorvastatin Calcium (Lipitor -) 10 mg PO HS [facility] Last Admin: 12/25/16 21:52 Dose: 10 mg Clopidogrel Bisulfate (Plavix -) 75 mg PO DAILY [facility] Last Admin: 12/26/16 09:29 Dose: 75 mg Dabigatran (Pradaxa -) 150 mg PO BID [facility] Last Admin: 12/26/16 09:29 Dose: 150 mg Diltiazem HCl (Cardizem Cd -) 240 mg PO DAILY [facility] Last Admin: 12/26/16 09:29 Dose: 240 mg Finasteride (Proscar -) 5 mg PO DAILY [facility] Last Admin: 12/26/16 09:29 Dose: 5 mg Lisinopril (Prinivil) 2.5 mg PO DAILY [facility] Last Admin: 12/26/16 09:30 Dose: 2.5 mg Magnesium Chloride (Slow-Mag -) 64 mg PO DAILY [facility] Last Admin: 12/26/16 09:29 Dose: 64 mg Metoprolol Succinate (Toprol Xl -) 25 mg PO BID [facility] Last Admin: 12/26/16 09:29 Dose: 25 mg Montelukast Sodium (Singulair -) 10 mg PO [facility] Last Admin: 12/25/16 21:52 Dose: 10 mg Nitroglycerin (Nitrostat -) 0.4 mg SL PRN PRN PRN Reason: CHEST PAIN Oxycodone HCl (Roxicodone -) 10 mg PO Q12H PRN PRN Reason: PAIN Last Admin: 12/25/16 22:01 Dose: 10 mg Pantoprazole Sodium (Protonix -) 40 mg PO [facility] Last Admin: 12/25/16 21:52 Dose: 40 mg Prednisone (Deltasone -) 10 mg PO DAILY [facility] Last Admin: 12/26/16 09:29 Dose: 10 mg Ranitidine HCl (Zantac -) 150 mg PO HS [facility] Last Admin: 12/25/16 21:53 Dose: 150 mg Sucralfate (Carafate -) 1 gm PO QID [facility] Last Admin: 12/26/16 09:29 Dose: 1 gm Tamsulosin HCl (Flomax -) 0.4 mg PO DAILY [facility] Last Admin: 12/26/16 09:29 Dose: 0.4 mg Zolpidem Tartrate (Ambien -) 10 mg PO HS PRN PRN Reason: INSOMNIA Last Admin: 12/26/16 00:00 Dose: 10 mg - Objective Vital Signs: Vital Signs Temperature 98.0 F 12/26/16 09:49 Pulse Rate 75 12/26/16 09:49 Respiratory Rate 18 12/26/16 09:49 Blood Pressure 108/75 12/26/16 09:49 O2 Sat by Pulse Oximetry (%) 97 12/26/16 09:00 Constitutional: Yes: No Distress, Calm Cardiovascular: Yes: Pulse Irregular Respiratory: Yes: CTA Bilaterally Gastrointestinal: Yes: Normal Bowel Sounds, Soft. No: Distention, Tenderness Edema: No Labs: CBC, BMP 12/26/16 08:55 12/26/16 08:55 INR, PTT INR 1.12 (0.82-1.09) 12/25/16 09:24 Problem List - Problems (1) CAD (coronary artery disease) Code(s): I25.10 - ATHSCL HEART DISEASE OF [place] CORONARY ARTERY W/O ANG PCTRS (2) HLD (hyperlipidemia) Code(s): E78.5 - HYPERLIPIDEMIA, UNSPECIFIED (3) HTN (hypertension) Code(s): I10 - ESSENTIAL (PRIMARY) HYPERTENSION (4) Paroxysmal a-fib Code(s): I48.0 - PAROXYSMAL ATRIAL FIBRILLATION Assessment/Plan PLAN Telemetry noted-- has episodes of Afib with RVR Spoke with DR Kohli-- will increase nighttime dose of Toprol-- 37.5mg, keep am dose of Toprol 25mg and Cardizem OOB daily continue with other meds Echo noted and d/w pt monitor for another 24 hours and possible dc tomorrow if heart rate is under control
[2016-12-26] MEDS ORDERED: FINASTERIDE 5 MG TABLET (FP) PO SCH (10:00)
[2016-12-26] MEDS ORDERED: TAMSULOSIN HCL 0.4 MG CAP.ER.24H (FP) PO SCH (10:00)
[2016-12-26] MEDS ORDERED: LISINOPRIL 5 MG TABLET (FP) PO SCH (10:00)
[2016-12-26 12:03] LABS: PLATELET ESTIMATE ADEQUATE (NORMAL)
[2016-12-26 13:19] LABS: CHOLESTEROL 175 mg/dL (50-200); LDL CHOLESTEROL (ONLY SJRH) 103 mg/dL (5-100)
[2016-12-26] MEDS: PANTOPRAZOLE 40 MG TABLET (FP) PO SCH (21:04)
[2016-12-26] MEDS: MONTELUKAST NA 10 MG TABLET PO SCH (21:04)
[2016-12-26] MEDS: RANITIDINE HCL 150 MG TABLET (FP) PO SCH (21:04)
[2016-12-26] MEDS ORDERED: METOPROLOL SUCCINATE 25 MG TAB.SR.24H (FP) PO SCH (22:00)
[2016-12-26] MEDS ORDERED: ATORVASTATIN CA 40 MG TABLET (FP) PO SCH (22:00)
[2016-12-26] MEDS: oxyCODONE HCL 5 MG TABLET PO PRN (22:55)
[2016-12-27] MEDS: ZOLPIDEM TARTRATE 5 MG TABLET PO PRN (00:22)
[2016-12-27] MEDS: DABIGATRAN ETEXILATE MESYLATE 150 MG CAPSULE PO SCH (09:42)
[2016-12-27] MEDS: FINASTERIDE 5 MG TABLET (FP) PO SCH (09:43)
[2016-12-27] MEDS: SUCRALFATE 1 GM TABLET (FP) PO SCH ×2 (09:43→14:33)
[2016-12-27] MEDS: predniSONE 10 MG TABLET (UD) PO SCH (09:43)
[2016-12-27] MEDS: CLOPIDOGREL BISULFATE 75 MG TABLET (FP) PO SCH (09:43)
[2016-12-27] MEDS: TAMSULOSIN HCL 0.4 MG CAP.ER.24H (FP) PO SCH (09:43)
[2016-12-27] MEDS: ASPIRIN 81 MG CHEWABLE TABLETS PO SCH (09:43)
[2016-12-27] MEDS ORDERED: METOPROLOL SUCCINATE 25 MG TAB.SR.24H (FP) PO SCH (10:00)
--- NOTE | 2016-12-27 11:29 | DS ---
Physical Examination Vital Signs: Vital Signs Temperature 98 F 12/27/16 09:05 Pulse Rate 79 12/27/16 09:05 Respiratory Rate 20 12/27/16 09:05 Blood Pressure 99/65 12/27/16 09:05 O2 Sat by Pulse Oximetry (%) 97 12/26/16 20:12 Findings/Remarks: patient seen and examined Chart reviewed Comfortable Denies chest pain or shortness of breath No other issues today Like to go home Constitutional: Yes: No Distress, Calm Eyes: Yes: Conjunctiva Clear Neck: Yes: Supple, Trachea Midline Cardiovascular: Yes: Pulse Irregular Respiratory: Yes: CTA Bilaterally Gastrointestinal: Yes: Soft Edema: No Peripheral Pulses WNL: Yes Neurological: Yes: Alert Psychiatric: Yes: Alert Labs: CBC, BMP 12/26/16 08:55 12/26/16 08:55 Discharge Summary Reason For Visit: ACUTE CORONARY SYNDROME,PAROXYSMAL ATRIAL FIB Current Active Problems Anticoagulation adequate (Acute) CAD (coronary artery disease) (Acute) HLD (hyperlipidemia) (Acute) HTN (hypertension) (Acute) Paroxysmal a-fib (Acute) Paroxysmal atrial fibrillation with rapid ventricular response (Acute) Right leg pain (Acute) Hospital Course: The patient is a 61 year old male, with a significant past medical history of an [place] (3-4 years ago, was placed on Coumadin and has discontinued it since 3 years ago), paroxysmal AFib, CAD(s/p stent and cardiac cath in 2012), hypertension, hyperlipidemia, COPD, GERD, BPH, and peripheral neuropathy, who presents to the emergency department complaining of chest pain since earlier this morning. The patient states the chest pain began this morning and woke him out of his sleep. He describes the pain as a constant flutter, as if someone were stepping on his chest. Patient reports this discomfort prompted him to measure his blood pressure earlier, which was slightly elevated. He states his pulse fluctuated between 75 and 140, and he called EMS. When EMS arrived on scene, the patient was given a nitroglycerin which slightly decreased his BP. Patient reports some SOB and SOB with exertion. He denies any associated diaphoresis or lower extremity edema. He denies any fever, chills, cough, headache, or dizziness. Patient reports visiting his Field Attendant earlier this week, where he had a normal ECG. He states his last AFib episode was approximately 1.5 years ago. Allergies: Iodinated Contrast Media, Shellfish Past Surgical History: Lymph nodes, Multiple Cardiac Stents, Cardiac Catheterization, Cholecystectomy, ORIF left arm, Left knee arthroscopy Social Histoy: Former Smoker(Quit 1989). No ETOH or recreational drug use. PCP: Dr. Cobb/ Dr. Lexii Quiñonez Field Attendant: Dr. Kohli patient admitted to telemetry OK ruled out Medications adjusted for rapid A. fib At present rate is under control Patient followed by cardiology Now stable to discharge home patient instructed to take Toprol-XL 25 mg in the morning and 37.5 milligram dose in the evening Medications reconciled Patient also advised to follow-up in the office next week Patient is in agreement I also discussed discharge plan with the RN Will also discuss with acting teacher Discharge time--- examining / documenting /coordinating care--- 35 minutes. Condition: Improved - Instructions Referrals: David Quiñonez MD [Primary Care Provider] - Disposition: HOME - Home Medications Comprehensive Discharge Medication List: Ambulatory Orders Albuterol Sulfate Inhaler - [Ventolin HFA Inhaler -] 1 - 2 inh PO QID PRN Aspirin [ASA -] 81 mg PO DAILY 12/25/16 Clopidogrel Bisulfate [Plavix -] 75 mg PO DAILY 12/25/16 Cyanocobalamin (Vitamin B-12) [Vitamin B12] 0 mcg PO DAILY 12/25/16 Dabigatran Etexilate Mesylate [Pradaxa -] 150 mg PO BID 12/25/16 Diltiazem Cd [Cardizem Cd -] 240 mg PO DAILY 12/25/16 Finasteride [Proscar] 5 mg PO DAILY 12/25/16 Fluticasone Prop 0.05% Nasal [Flonase -] 1 - 2 spray NS PRN PRN 12/25/16 Folic Acid 1 mg PO DAILY 12/25/16 Lisinopril [Zestril] 2.5 mg PO DAILY 12/25/16 Magnesium Chloride [Slow-Mag -] 64 mg PO DAILY 12/25/16 Metoprolol Succinate [Toprol Xl -] 25 mg PO BID 12/25/16 Montelukast Na [Singulair -] 10 mg PO HS 12/25/16 Nitroglycerin [Nitrostat] 0.4 mg SL PRN PRN 12/25/16 [place]-3S/Dha/Epa/Fish Oil [Fish Oil [place]-3 Softgel] 2 each PO BID 12/25/16 Potassium 0 mg PO DAILY 12/25/16 Pravastatin Sodium [Pravachol -] 40 mg PO HS 12/25/16 Prednisone 10 mg PO DAILY 12/25/16 Ranitidine [Zantac -] 150 mg PO HS 12/25/16 Sucralfate [Carafate -] 1 gm PO QID 12/25/16 Tamsulosin HCl [Flomax] 0.4 mg PO DAILY 12/25/16 Zolpidem Tartrate [Ambien] 10 mg PO HS 12/25/16 Acetaminophen [Tylenol .Regular Strength -] 325 mg PO Q6H PRN #0 tablet
[2016-12-27 14:19] VITALS: BP 98/65; PULSE 71; TEMP 98.7
[2016-12-27] MEDS: MAGNESIUM CL 64 MG TABLET.SA PO SCH (14:33)
[2016-12-27] MEDS: oxyCODONE HCL 5 MG TABLET PO PRN (14:35)
[2016-12-28] MEDS ORDERED: LISINOPRIL 5 MG TABLET (FP) PO SCH (10:00)
--- NOTE | 2016-12-30 10:48 | EKG ---
Test Reason : Blood Pressure : / mmHG Vent. Rate : 076 BPM Atrial Rate : 076 BPM P-R Int : 196 ms QRS Dur : 084 ms QT Int : 352 ms P-R-T Axes : 031 019 018 degrees QTc Int : 396 ms SINUS RHYTHM WITH MARKED SINUS ARRHYTHMIA OTHERWISE NORMAL ECG WHEN COMPARED WITH ECG OF 25-DEC-2016 09:07, SINUS RHYTHM HAS REPLACED ATRIAL FIBRILLATION Confirmed by MARTA BERNAL MD ([id number]) on 12/30/2016 10:47:44 AM Referred By: Confirmed By:MARTA BERNAL MD
== END 2016-12-27 19:15 | disposition home or self-care (01) | DRG 309 ==
LOC: JER 08:56 → JERBED 10:59 → J4W 12:56
PROVIDERS: ADMIT Internal Medicine; ATTEND Internal Medicine
DX: I48.0 Paroxysmal atrial fibrillation (principal); I50.32 Chronic diastolic (congestive) heart failure; I25.10 Atherosclerotic heart disease of native coronary artery without angina pectoris; E78.5 Hyperlipidemia, unspecified; J44.9 Chronic obstructive pulmonary disease, unspecified; I25.2 Old myocardial infarction; N40.0 Benign prostatic hyperplasia without lower urinary tract symptoms; G62.9 Polyneuropathy, unspecified; Z91.013 Allergy to seafood; Z91.041 Radiographic dye allergy status; I45.10 Unspecified right bundle-branch block; Z87.891 Personal history of nicotine dependence; I11.0 Hypertensive heart disease with heart failure; F41.9 Anxiety disorder, unspecified; K21.0 Gastro-esophageal reflux disease with esophagitis; M19.90 Unspecified osteoarthritis, unspecified site; M79.604 Pain in right leg
CPT/HCPCS: 36415; 71020-TC; 80053; 80061; 82550; 83721; 83735; 83880; 84439; 84443; 84484; 85025; 85610; 85730; 93005; 93010; 93306-TC; 99285-25

== ENCOUNTER 2018-11-07 15:30 | Emergency (ER) | payer OTHER ==
[2018-11-07 15:43] VITALS: BP 142/90; PULSE 84; TEMP 98.4; BMI 27.1
[2018-11-07] MEDS ORDERED: DIPHTH,PERTUSS(ACELL),TET 0.5 ML DISP.SYRIN IM ONE ×2 (15:53→16:20)
[2018-11-07] MEDS ORDERED: NAPROXEN 375 MG TABLET (FP) PO ONE (16:00)
[2018-11-07] MEDS ORDERED: AMOX TR/POT CLAV 875MG/125MG TABLETS (FP) PO ONE (16:01)
[2018-11-07] MEDS ORDERED: NAPROXEN 375 MG TABLET (FP) ONE (16:20)
[2018-11-07] MEDS ORDERED: AMOX TR/POT CLAV 875MG/125MG TABLETS (FP) ONE (16:20)
--- NOTE | 2018-11-07 17:36 | PDOC ---
Documentation entered by Mathew Feliciano SCRIBE, acting as scribe for Moises Caro MD. Moises Caro MD: This documentation has been prepared by the jennibBraden guthrie Daniel, SCRIBE, under my direction and personally reviewed by me in its entirety. I confirm that the documentation accurately reflects all work, treatment, procedures, and medical decision making performed by me. History of Present Illness - General Chief Complaint: Laceration Stated Complaint: LEFT HAND 2ND FINGER LACERATION History Source: Patient Exam Limitations: No Limitations - History of Present Illness Initial Comments: 11/07/18 16:53 The patient is a 63 year old male with a past medical history of HTN here today for evaluation of left hand lacerations. The patient reports that he smashed his left middle finger yesterday with a hammer which created a distal laceration. He also states that he cut his left index finger and left palmar surface today with a feather trimmer. He states his last tetanus was over five years ago. Patient denies headache, lightheadedness. Denies fever, chills. Denies chest pain, shortness of breath. Denies nausea, vomiting, diarrhea, abdominal pain. Allergies: shellfish, iodinated contrast IV and oral Surgical history: left elbow ORIF, cholecystectomy, Lymphadenectomy Past History - Past Medical History Allergies/Adverse Reactions: Allergies Allergy/AdvReac Type Severity Reaction Status Date / Time Shellfish Allergy Unknown Verified 11/07/18 15:31 Iodinated Contrast- Oral and AdvReac Intermediate Verified 11/07/18 15:31 IV Dye Home Medications: Ambulatory Orders Albuterol Sulfate Inhaler - [Ventolin HFA Inhaler -] 1 - 2 inh PO QID PRN Aspirin [ASA -] 81 mg PO DAILY 12/25/16 Clopidogrel Bisulfate [Plavix -] 75 mg PO DAILY 12/25/16 Cyanocobalamin (Vitamin B-12) [Vitamin B12] 0 mcg PO DAILY 12/25/16 Dabigatran Etexilate Mesylate [Pradaxa -] 150 mg PO BID 12/25/16 Diltiazem Cd [Cardizem Cd -] 240 mg PO DAILY 12/25/16 Fluticasone Prop 0.05% Nasal [Flonase -] 1 - 2 spray NS PRN PRN 12/25/16 Folic Acid 1 mg PO DAILY 12/25/16 Lisinopril [Zestril] 2.5 mg PO DAILY 12/25/16 Magnesium Chloride [Slow-Mag -] 64 mg PO DAILY 12/25/16 Metoprolol Succinate [Toprol XL -] 25 mg PO BID 12/25/16 Montelukast Na [Singulair -] 10 mg PO HS 12/25/16 Nitroglycerin [Nitrostat] 0.4 mg SL PRN PRN 12/25/16 [place]-3S/Dha/Epa/Fish Oil [Fish Oil [place]-3 Softgel] 2 each PO BID 12/25/16 Potassium 0 mg PO DAILY 12/25/16 Pravastatin Sodium [Pravachol -] 40 mg PO HS 12/25/16 Prednisone 10 mg PO DAILY 12/25/16 Ranitidine [Zantac -] 150 mg PO HS 12/25/16 Sucralfate [Carafate -] 1 gm PO QID 12/25/16 Zolpidem Tartrate [Ambien] 10 mg PO HS 12/25/16 Acetaminophen [Tylenol .Regular Strength -] 325 mg PO Q6H PRN #0 tablet Amox-Tr/K Cl [Augmentin - 875Mg Tablet] 1 tab PO BID #10 tablet 11/07/18 Naproxen [Naprosyn -] 375 mg PO BID PRN #10 tablet 11/07/18 Anemia: No Asthma: Yes 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) Cardiac Disorders: Yes (CAD, ANGINA, Multiple STENT, PAFIB, [place]) CVA: No COPD: Yes CHF: Yes (unsure) DVT: No Dementia: No Diabetes: No GI Disorders: Yes (DIVERTICULOSIS,ESOPHAGEAL DYSMOTILITY, GERD, spasmatic esophagus) Disorders: Yes (BPH) HTN: Yes Hypercholesterolemia: Yes Kidney Stones: Yes Liver Disease: Yes (NAFLD) Seizures: No Thyroid Disease: No - Surgical History Abdominal Surgery: Yes (lymph nodes) Appendectomy: No Cardiac Surgery: Yes (multiple stents) Cholecystectomy: Yes (LAPAROSCOPIC) Lung Surgery: No Neurologic Surgery: No Orthopedic Surgery: Yes (ORIF Left Arm,Left Knee Arthroscopy,) - Immunization History Td Vaccination: (2006) Immunization Up to Date: Yes - Suicide/Smoking/Psychosocial Hx Smoking Status: Yes Smoking History: Former smoker Years of Tobacco Use: 21 Have you smoked in the past 12 months: No Number of Cigarettes Smoked Daily: 60 If you are a former smoker, when did you quit?: 1989 Hx Alcohol Use: No Drug/Substance Use Hx: No Substance Use Type: None Hx Substance Use Treatment: No Review of Systems - Review of Systems Able to Perform ROS?: Yes Comments:: 11/07/18 16:54 CONSTITUTIONAL: Absent: Fever, Chills, Diaphoresis, Generalized Weakness, Malaise, Loss of Appetite HEENT: Absent: Rhinorrhea, Nasal Congestion, Throat Pain, Throat Swelling, Difficulty Swallowing, Mouth Swelling, Ear Pain, Eye Pain, Visual Changes CARDIOVASCULAR: Absent: Chest Pain, Syncope, Palpitations, Irregular Heart Rate, Lightheadedness , Peripheral Edema RESPIRATORY: Absent: Cough, Shortness of Breath, SOB with Exertion, Orthopnea, Wheezing, Stridor, Hemoptysis GASTROINTESTINAL: Absent: Abdominal pain, Abdominal Distension, Nausea, Vomiting, Diarrhea, Constipation, Melena, Hematochezia GENITOURINARY: Absent: Dysuria, Frequency, Urgency, Hesitancy, Flank Pain, Genital Pain MUSCULOSKELETAL: Absent: Myalgia, Arthralgia, Joint Swelling, Back pain, Neck Pain SKIN: +laceration to left middle finger, left index, and left palmar surface Absent: Rash, Itching, Pallor HEMEATOLOGIC/IMMUNOLOGIC: Absent: Easy Bleeding, Easy Bruising, Lymphadenopathy, Frequent infections ENDOCRINE: Absent: Unexplained Weight Gain, Unexplained Weight Loss, Heat Intolerance, Cold Intolerance NEUROLOGIC: Absent: Headache, Focal Weakness, Paresthesias, Vertigo, Lightheadedness, Unsteady Gait, Seizure, Mental Status Changes, Incontinence PSYCHIATRIC: Absent: Anxiety, Depression *Physical Exam - Vital Signs Last Vital Signs Temp Pulse Resp BP Pulse Ox 98.4 F 84 20 142/90 84 L 11/07/18 15:31 11/07/18 15:31 11/07/18 15:31 11/07/18 15:31 11/07/18 15:31 - Physical Exam Comments: 11/07/18 16:54 GENERAL: The patient is awake, alert, and fully oriented, in no acute distress. HEAD: Normal with no signs of trauma. EYES: Pupils equal, round and reactive to light, extraocular movements intact, sclera anicteric, conjunctiva clear. EXTREMITIES: Normal range of motion, no edema. NEUROLOGICAL: Normal speech, normal gait. PSYCH: Normal mood, normal affect. SKIN: +small healing laceration over radial aspect of distal phalanx of left middle finger with normal range of motion. Positive tenderness. (This is the injury from being hit with a hammer yesterday) +laceration of left index finger over the radial aspect overlying the middle phalanx with normal tendon strength and normal sensation. Flexion and extension strength is normal, tested at each joint. Sensation to 2-point discrimination is normal. (This is the injury from the feather trimmer from today ) ED Treatment Course - RADIOLOGY Radiology Studies Ordered: Category Date Time Status HAND- LEFT [RAD] Stat Radiology 11/07/18 16:01 Taken - Medications Given in the ED: ED Medications Discontinued Medications Generic Name Dose Route Start Last Admin Trade Name Freq PRN Reason Stop Dose Admin Amoxicillin/Clavulanate Potassium 1 tab 11/07/18 16:01 11/07/18 16:22 Augmentin - 875mg Tablet PO 11/07/18 16:02 1 tab ONCE ONE Administration Diphtheria/Tetanus/Acell Pertussis 0.5 ml 11/07/18 15:53 11/07/18 16:21 Boostrix - IM 11/07/18 15:54 0.5 ml ONCE ONE Administration Naproxen 375 mg 11/07/18 16:00 11/07/18 16:21 Naprosyn - PO 11/07/18 16:01 375 mg ONCE ONE Administration Medical Decision Making - Medical Decision Making 11/07/18 17:28 63-year-old man with a history of hypertension and arthritis presents with left hand injury. He hit his middle finger yesterday with a hammer, and he caught his left index finger today with a feather trimmer. On examination, there is a small 1 cm laceration over the left radial index finger in the region of the middle phalanx, normal neurovascular and sensory exam. Normal tendon exam. There is also a one-day-old laceration/contusion of the distal phalanx of the middle finger. No signs of infection. X-rays were done of the left hand. There is no fracture, dislocation or foreign body on my preliminary review of the left hand x-rays. Final radiology reading is pending at the time of disposition. Radiology follow-up procedure activated. Impression: Laceration of the left index finger, contusion and laceration of the left middle finger. Uncomplicated. Patient given Augmentin prophylaxis 5 days to prevent infection. Patient given Naprosyn for pain control as needed. Treatment: Wounds were irrigated copiously with saline. Steri-Strip and bandage applied. First dose of Augmentin dose in the emergency department. *DC/Admit/Observation/Transfer Diagnosis at time of Disposition: Finger laceration Qualifiers: Encounter type: initial encounter Finger: unspecified finger Damage to nail status: without damage Foreign body presence: without foreign body Laterality: left Qualified Code(s): S61.219A - Laceration without foreign body of unspecified finger without damage to nail, initial encounter - Discharge Dispostion Disposition: HOME Condition at time of disposition: Stable Decision to Admit order: No - Prescriptions Prescriptions: Amox-Tr/K Cl [Augmentin - 875Mg Tablet] 1 tab PO BID #10 tablet Naproxen [Naprosyn -] 375 mg PO BID PRN #10 tablet PRN Reason: finger pain - Referrals - Patient Instructions Printed Discharge Instructions: DI for Laceration Repair Steri-Strips Additional Instructions: You were evaluated today for injuries to your fingers on your left hand. The wounds were cleansed with saline solution and Steri-Strips were applied. Keep the Steri-Strips in place for 5 days, then remove. Keep the wounds clean and dry. Take Augmentin antibiotic 2 times a day for 5 days to prevent infection. If there are any signs of infection such as any redness, swelling, pus or red streaks, return immediately to see the doctor. Elevate the hand to relieve pain and swelling. Take Naprosyn twice a day as needed for pain. Follow-up with your primary care physician or return to the emergency department for any severe or progressive symptoms. - Post Discharge Activity
== END 2018-11-07 17:40 | disposition home or self-care (01) ==
LOC: FER 15:30
PROC: 3E0234Z Introduction of Serum, Toxoid and Vaccine into Muscle, Percutaneous Approach (ICD-10-PCS; principal; 2018-11-07)
PROC: 3E0234Z Introduction of Serum, Toxoid and Vaccine into Muscle, Percutaneous Approach (ICD-10-PCS; 2018-11-07)
DX: S61.213A Laceration without foreign body of left middle finger without damage to nail, initial encounter (principal); S61.211A Laceration without foreign body of left index finger without damage to nail, initial encounter; W29.8XXA Contact with other powered hand tools and household machinery, initial encounter; Y93.H2 Activity, gardening and landscaping; Y92.007 Garden or yard of unspecified non-institutional (private) residence as the place of occurrence of the external cause; I10 Essential (primary) hypertension; M19.90 Unspecified osteoarthritis, unspecified site; Z87.891 Personal history of nicotine dependence; I50.9 Heart failure, unspecified; J44.9 Chronic obstructive pulmonary disease, unspecified; N40.0 Benign prostatic hyperplasia without lower urinary tract symptoms
CPT/HCPCS: 73130-TC-LT-FY; 90715; 99282-25

== ENCOUNTER 2019-04-19 07:37 | Observation (INO) | payer OTHER ==
[2019-04-19 07:52] VITALS: BMI 27.6
--- NOTE | 2019-04-19 08:15 | PDOC ---
History of Present Illness - General Stated Complaint: CHEST PAIN Time Seen by Provider: 04/19/19 07:44 - History of Present Illness Initial Comments: 04/19/19 08:23 Pt is a 63 y/o M with a significant past medical history of CAD (multiple stents on plavix), LA, paroxysmal AFib (on Pradaxa for AC) ,diastolic CHF, hypertension, hyperlipidemia, COPD, GERD, BPH, anxiety, and peripheral neuropathy who presents to our Emergency Department due to palpitations and chest pain. Pt states that around midnight, he began to feel his heart beat irregularly and became short of breath. Pt states he has not missed any of his medications including cardizem. Does endorse increasing shortness of breath over past 1 month. Chest pain located left side of chest, nonradiating, 5/10 in pain severity. Beta Darci given by EMS (Core Measure): No Beta Darci taken at Home (Core Measure): No Past History - Past Medical History Allergies/Adverse Reactions: Allergies Allergy/AdvReac Type Severity Reaction Status Date / Time Shellfish Allergy Unknown Verified 04/19/19 07:52 Iodinated Contrast Media AdvReac Intermediate Verified 04/19/19 07:52 Home Medications: Ambulatory Orders Albuterol 0.083% Nebulizer Jessy [Ventolin 0.083% Nebulizer Soln -] 1 amp NEB TID PRN 04/19/19 Albuterol Sulfate Inhaler - [Ventolin Hfa Inhaler -] 1 puff IH BID 04/19/19 Aspirin 81 mg PO BID 04/19/19 Clopidogrel Bisulfate [Clopidogrel] 75 mg PO DAILY 04/19/19 Cyanocobalamin [Vitamin B12 -] 1,000 mcg PO DAILY 04/19/19 Dabigatran Etexilate Mesylate [Pradaxa] 110 mg PO BID 04/19/19 Diltiazem Cd [Cardizem Cd -] 240 mg PO ONCE 04/19/19 Famotidine [Pepcid -] 20 mg PO BID 04/19/19 Fluticasone Furoate [Flonase Sensimist] 9.9 ml NS BID 04/19/19 Folic Acid 1 mg PO DAILY 04/19/19 Hydrocodone/Acetaminophen [Hydrocodon-Acetaminophn 10-325] 1 each PO TID PRN 04/27 Lisinopril [Zestril] 2.5 mg PO DAILY 04/19/19 Mesalamine Suppository [Canasa Suppository] 1,000 mg RC DAILY PRN 04/19/19 Metoprolol Diaz/Hydrochlorothiaz [Metoprolol ER-Hctz 25-12.5 mg] 1 each PO BID 04/27 Montelukast Sodium [Singulair] 10 mg PO ONCE 04/19/19 Multivitamins [Tab-A-Vit -] 1 tab PO DAILY 04/19/19 Nitroglycerin [Nitrostat] 0.4 mg SL [id number] PRN MDD max 3 04/19/19 [place]-3/Dha/Epa/Fish Oil [Fish Oil 1,000 mg Softgel] 2,000 mg PO BID 04/19/19 Pravastatin Sodium [Pravachol (Nf)] 40 mg PO HS 04/19/19 Sucralfate [Carafate -] 1 gm PO QID 04/19/19 Zolpidem Tartrate [Ambien] 10 mg PO HS 04/19/19 predniSONE [Deltasone -] 10 mg PO DAILY 04/19/19 Anemia: No Asthma: Yes 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) Cardiac Disorders: Yes (CAD, ANGINA, Multiple STENT, PAFIB, [place]) CVA: No COPD: Yes CHF: Yes (unsure) DVT: No Dementia: No Diabetes: No GI Disorders: Yes (DIVERTICULOSIS,ESOPHAGEAL DYSMOTILITY, GERD, spasmatic esophagus) Disorders: Yes (BPH) HTN: Yes Hypercholesterolemia: Yes Kidney Stones: Yes Liver Disease: Yes (NAFLD) Seizures: No Thyroid Disease: No - Surgical History Abdominal Surgery: Yes (lymph nodes) Appendectomy: No Cardiac Surgery: Yes (multiple stents) Cholecystectomy: Yes (LAPAROSCOPIC) Lung Surgery: No Neurologic Surgery: No Orthopedic Surgery: Yes (ORIF Left Arm,Left Knee Arthroscopy,) - Immunization History Td Vaccination: (2006) Immunization Up to Date: Yes - Psycho Social/Smoking Cessation Hx Smoking Status: Yes Smoking History: Former smoker Years of Tobacco Use: 21 Have you smoked in the past 12 months: No Number of Cigarettes Smoked Daily: 60 If you are a former smoker, when did you quit?: 22 YEARS AGO Information on smoking cessation initiated: No Hx Alcohol Use: No Drug/Substance Use Hx: No Substance Use Type: None Hx Substance Use Treatment: No Cardiac Specific PMH - Complaint Specific PMHX Angina: Yes Cardiac Stent: Yes (2006 x 1, 2012 x 1, 2013 x 1) Pacemaker: No Peripheral Vascular Disease: No Review of Systems - Review of Systems Able to Perform ROS?: Yes Is the patient limited Citizen Of [place] proficient: No Constitutional: No: Chills, Diaphoresis, Fever, Malaise, Night Sweats HEENTM: No: Blurred Vision Respiratory: Yes: Shortness of Breath, SOB at Rest. No: Cough Cardiac (ROS): Yes: Chest Pain, Edema, Irregular Heart Rate, Palpitations ABD/GI: No: Abdominal Distended, Constipated, Diarrhea : Yes: Frequency. No: Dysuria, Discharge Musculoskeletal: No: Muscle Weakness *Physical Exam - Vital Signs Last Vital Signs Temp Pulse Resp BP Pulse Ox 97.5 F L 66 13 99/70 96 04/19/19 09:40 04/19/19 09:40 04/19/19 09:40 04/19/19 09:40 04/19/19 09:40 - Physical Exam General Appearance: Yes: Nourished, Appropriately Dressed, Mild Distress HEENT: positive: EOMI. negative: Scleral Icterus (R), Scleral Icterus (L) Neck: positive: Supple Respiratory/Chest: positive: Lungs Clear, Normal Breath Sounds Cardiovascular: positive: S1, S2, Irregular Gastrointestinal/Abdominal: positive: Flat, Soft. 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, Fully Oriented, Alert, Normal Response, Motor Strength 5/5 Heart Score/ECG Review - History History: Slightly suspicious - Electrocardiogram EKG: Normal - Age Age: >/= 65 - Risk Factors Risk Factors Heart Score: Yes Hx Hypertension, Yes Smoking History, Yes Positive family hx of cardiac disease Based on the list above the patient has:: >/=3 risk factors or Hx atherosclerotic disease - Troponin Troponin: </= normal limit - Score Heart Score - Total: 4 - ECG Intrepretation Rhythm: Regular Rhythm ED Treatment Course - LABORATORY CBC & Chemistry Diagram: 04/19/19 08:20 04/19/19 08:18 - ADDITIONAL ORDERS Additional order review: Laboratory Results 04/19/19 04/19/19 04/19/19 09:55 08:20 08:18 PT with INR 13.20 H INR 1.12 H PTT (Actin FS) 39.9 H Sodium 139 Potassium 4.3 Chloride 106 Carbon Dioxide 27 Anion Gap 6 L BUN 15.8 Creatinine 0.8 Est GFR (CKD-EPI)AfAm 108.65 Est GFR (CKD-EPI)NonAf 93.74 Random Glucose 91 Calcium 9.2 Phosphorus 3.8 Magnesium 2.2 Total Bilirubin 0.5 AST 56 H ALT 109 H Alkaline Phosphatase 67 Creatine Kinase Troponin I < 0.02 Total Protein 7.1 Albumin 3.6 04/19/19 08:18 PT with INR INR PTT (Actin FS) Sodium Potassium Chloride Carbon Dioxide Anion Gap BUN Creatinine Est GFR (CKD-EPI)AfAm Est GFR (CKD-EPI)NonAf Random Glucose Calcium Phosphorus Magnesium Total Bilirubin AST ALT Alkaline Phosphatase Creatine Kinase 91 Troponin I < 0.02 Total Protein Albumin 04/19/19 08:20 RBC 4.43 MCV 90.4 MCHC 32.5 RDW 16.0 H MPV 7.6 Neutrophils % 66.4 D Lymphocytes % 22.0 D Monocytes % 10.5 H Eosinophils % 0.8 Basophils % 0.3 - RADIOLOGY Radiology Studies Ordered: Category Date Time Status CHEST X-RAY PORTABLE* [RAD] Stat Radiology 04/19/19 08:15 Completed - Medications Given in the ED: ED Medications Discontinued Medications Generic Name Dose Route Start Last Admin Trade Name Freq PRN Reason Stop Dose Admin Aspirin 162 mg 04/19/19 08:26 04/19/19 08:35 Asa - PO 04/19/19 08:27 162 mg ONCE ONE Administration Medical Decision Making - Medical Decision Making 04/19/19 08:21 ddx includes but not limited to M.I, Aortic Dissection, Unstable angina will order cardiac profile, chest xray to assess for a widened mediastinum, cbc , cmp 04/19/19 09:09 CXR--> no widened mediastinum see. Possible infiltrate LL Base. Troponin neg. Will repeat. 04/19/19 09:21 Cardiology, Dr Kohli contacted. They will come toe valuate pt this morning. 04/19/19 10:59 pt to be admitted to tele obs per cardiology. Discharge - Follow up/Referral Referrals: David Quiñonez MD [Primary Care Provider] - - Patient Discharge Instructions - Post Discharge Activity
[2019-04-19] MEDS ORDERED: ASPIRIN 81 MG CHEWABLE TABLETS PO ONE (08:26)
[2019-04-19] MEDS ORDERED: ASPIRIN 81 MG CHEWABLE TABLETS ONE (08:38)
[2019-04-19 08:41] LABS: BASO % 0.3 % (0-2.0); EOS % 0.8 % (0-4.5); HEMATOCRIT 40.1 % (35.4-49); MCH 29.4 pg (25.7-33.7); MCHC 32.5 g/dl (32.0-35.9); MEAN CELL VOLUME 90.4 fl (80-96); MEAN PLT VOLUME 7.6 fl (7.5-11.1); MONO % 10.5 % (3.8-10.2); NEUT % 66.4 % (42.8-82.8); PLATELET COUNT 340 K/MM3 (134-434); RBC 4.43 M/mm3 (4.00-5.60); WHITE BLOOD COUNT 11.1 K/mm3 (4.0-10.0)
[2019-04-19 09:06] LABS: INR 1.12 (0.83-1.09); PROTHROMBIN TIME (PATIENT) 13.2 SEC (9.7-13.0)
[2019-04-19 09:08] LABS: ALBUMIN 3.6 g/dl (3.4-5.0); BILIRUBIN,TOTAL 0.5 mg/dL (0.2-1); BLOOD UREA NITROGEN 15.8 mg/dL (7-18); CALCIUM 9.2 mg/dL (8.5-10.1); CREATININE 0.8 mg/dL (0.55-1.3); PHOSPHOROUS 3.8 mg/dL (2.5-4.9); POTASSIUM 4.3 mmol/L (3.5-5.1); TOT PROT 7.1 g/dl (6.4-8.2)
[2019-04-19 09:09] LABS: ACTIVATED PTT 39.9 SECONDS (25.2-36.5)
--- NOTE | 2019-04-19 09:25 | PDOC ---
Documentation entered by Mathew Feliciano SCRIBE, acting as scribe for Raul Gutierrez MD. Raul Gutierrez MD: This documentation has been prepared by the Braden abernathy Daniel, SCRIBE, under my direction and personally reviewed by me in its entirety. I confirm that the documentation accurately reflects all work, treatment, procedures, and medical decision making performed by me. Attending Attestation - Resident Resident Name: Jesús,Mark - ED Attending Attestation I have performed the following: I have examined & evaluated the patient, The case was reviewed & discussed with the resident, I agree w/resident's findings & plan - HPI HPI: 04/19/19 09:21 63-year-old male with history of hypertension, paroxysmal atrial fibrillation, extensive CAD with stents presents now with episode of palpitations/fluttering intermittently during the night, not improving with calcium channel ayad and beta-ayad, also took nitro for chest pressure that was associated with lightheadedness and nausea. Chest pressure is persistent now, though palpitations have resolved upon arrival. 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 Occasional bilateral lower leg pain, but no swelling. - Physicial Exam PE: 04/19/19 09:23 Vitals as noted, heart rate normal, O2 sat normal Well-appearing seated in stretcher, speaking full sentences without distress No JVD, heart is regular, lungs are clear Abdomen benign Trace bilateral lower extremity edema without calf tenderness, early venous stasis dermatitis - Medical Decision Making 04/19/19 09:23 63-year-old male with history of CAD/ND/stents presents with 1 month of increasing exertional fatigue and now several hours of intermittent palpitations with ongoing chest pressure. Arrhythmia seems to have resolved, now with normal rate and sinus rhythm, but chest pressure persists at a milder level. Presentation concerning for ACS/arrhythmia, particularly in the setting of known CAD with recent exertional symptomatology. Chest pain protocol initiated Chest x-ray without acute abnormality on my preliminary review EKG performed stat upon arrival showed sinus rhythm without acute ischemia Dose aspirin, labs are within normal limits including initial troponin Discussed with cardiology team, Dr. Kohli, who will assist with determining disposition, will need telemetry monitoring versus transfer for catheterization. 04/19/19 11:12 workup wnl, HR remains sinus and normal. Seen by Dr. Owens, recommends admit to tele here. Heart Score/ECG Review #1 ECG reviewed & interpreted by me at: 07:47 General ECG Interpretation: Sinus Rhythm, Normal Rate (83), Normal Intervals ( qtc 430), No acute ischemic changes Compared to previous ECG there are: No significant change (c/w 12/25/16)
--- NOTE | 2019-04-19 10:00 | EKG ---
Test Reason : Blood Pressure : / mmHG Vent. Rate : 083 BPM Atrial Rate : 083 BPM P-R Int : 170 ms QRS Dur : 088 ms QT Int : 366 ms P-R-T Axes : 043 000 015 degrees QTc Int : 430 ms NORMAL SINUS RHYTHM NORMAL ECG WHEN COMPARED WITH ECG OF 25-DEC-2016 10:56, NO SIGNIFICANT CHANGE WAS FOUND Confirmed by PETER GALO MD ([id number]) on 04/19/2019 10:00:09 AM Referred By: Confirmed By:PETER GALO MD
--- NOTE | 2019-04-19 10:07 | CON.CARD ---
Consult Consult Specialty:: Cardiology - History of Present Illness Chief Complaint: palpitations/sob History of Present Illness: 63-year-old male with history of hypertension, paroxysmal atrial fibrillation, extensive CAD with stents presents now with episode of palpitations/fluttering intermittently during the night, not improving with calcium channel ayad and beta-ayad, also took nitro for chest pressure that was associated with lightheadedness and nausea. Chest pressure is persistent now, though palpitations have resolved upon arrival. Patient notes increasing fatigue with climbing stairs over the last month, also with more frequent episodes of palpitations representative personal service of his bouts of atrial fibrillation. Occasional bilateral lower leg pain, but no swelling. PMH Past medical history Major events coronary angiogram 12/14/2015: LAD mid 40% ISR (non-obstructive by IVUS on previous catheterization), distal 30%; D1 80%, with VERA flow 3; LCx luminal irregularities; OM1 small vessel; OM2 large vessel, with patent widely previous stent site; RCA proximal 40% ulcerated plaque similar to previous angiography; mid stent widely patent; LVEF 60%. coronary stent mid LAD 07/15; on 10/2011: mid RCA DANNY; mid LAD stent site with 40% ISR(in stent restenosis) Lt elbow Fx repair Lt knee cartilage repair Rt rotator cuff repair s/p colonoscopic polypectomies (1995; 2000) s/p dog bite, which led to rabies injections s/p resection of left testicular teratoma Ongoing medical problems CAD; s/p coronary stents (most recent angiogram, 12/2015, showed nonobstructive CAD) chronic sinusitis COPD/emphysema/?bronchial asthma diverticulosis HTN hyperlipidemia nephrolithiasis PAF Prostatitis (recent hospitalization) - History Source History Provided By: Patient, Medical Record - Past Medical History 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 Afib) Pulmonary: Yes: Cancer, COPD Gastrointestinal: Yes: GERD Renal/: Yes: BPH Infectious Disease: Yes: Other (dog bite required rabies injections) Psych: Yes: Anxiety, Panic Musculoskeletal: Yes: Other (recent fracture Rt Tibia- no surgery due to cardiac issues) Endocrine: Yes: Diabetes Mellitus Dermatology: Yes: Basal Cell (basal cell carcinoma excised from right subclavicular area) - Past Surgical History Past Surgical History: Yes: Stent (recent stent was in Mar 2013.) - Alcohol/Substance Use Hx Alcohol Use: No History of Substance Use: reports: None - Smoking History Smoking history: Former smoker Have you smoked in the past 12 months: No Aproximately how many cigarettes per day: 60 If you are a former smoker, when did you quit?: 22 YEARS AGO - Social History Usual Living Arrangement: Alone ADL: Family Assistance Occupation: disabled former [employer] employee History of Recent Travel: No Home Medications - Allergies Allergies/Adverse Reactions: Allergies Allergy/AdvReac Type Severity Reaction Status Date / Time Shellfish Allergy Unknown Verified 04/19/19 07:52 Iodinated Contrast Media AdvReac Intermediate Verified 04/19/19 07:52 - Home Medications Home Medications: Ambulatory Orders Albuterol 0.083% Nebulizer Jessy [Ventolin 0.083% Nebulizer Soln -] 1 amp NEB TID PRN 04/19/19 Albuterol Sulfate Inhaler - [Ventolin Hfa Inhaler -] 1 puff IH BID 04/19/19 Aspirin 81 mg PO BID 04/19/19 Clopidogrel Bisulfate [Clopidogrel] 75 mg PO DAILY 04/19/19 Cyanocobalamin [Vitamin B12 -] 1,000 mcg PO DAILY 04/19/19 Dabigatran Etexilate Mesylate [Pradaxa] 110 mg PO BID 04/19/19 Diltiazem Cd [Cardizem Cd -] 240 mg PO ONCE 04/19/19 Famotidine [Pepcid -] 20 mg PO BID 04/19/19 Fluticasone Furoate [Flonase Sensimist] 9.9 ml NS BID 04/19/19 Folic Acid 1 mg PO DAILY 04/19/19 Hydrocodone/Acetaminophen [Hydrocodon-Acetaminophn 10-325] 1 each PO TID PRN 04/27 Lisinopril [Zestril] 2.5 mg PO DAILY 04/19/19 Mesalamine Suppository [Canasa Suppository] 1,000 mg RC DAILY PRN 04/19/19 Metoprolol Diaz/Hydrochlorothiaz [Metoprolol ER-Hctz 25-12.5 mg] 1 each PO BID 04/27 Montelukast Sodium [Singulair] 10 mg PO ONCE 04/19/19 Multivitamins [Tab-A-Vit -] 1 tab PO DAILY 04/19/19 Nitroglycerin [Nitrostat] 0.4 mg SL [id number] PRN MDD max 3 04/19/19 [place]-3/Dha/Epa/Fish Oil [Fish Oil 1,000 mg Softgel] 2,000 mg PO BID 04/19/19 Pravastatin Sodium [Pravachol (Nf)] 40 mg PO HS 04/19/19 Sucralfate [Carafate -] 1 gm PO QID 04/19/19 Zolpidem Tartrate [Ambien] 10 mg PO HS 04/19/19 predniSONE [Deltasone -] 10 mg PO DAILY 04/19/19 Review of Systems - Review of Systems Constitutional: reports: No Symptoms Eyes: reports: No Symptoms HENT: reports: No Symptoms Neck: reports: No Symptoms Cardiovascular: reports: Palpitations, Shortness of Breath Respiratory: reports: SOB, SOB on Exertion Gastrointestinal: reports: No Symptoms Genitourinary: reports: No Symptoms Breasts: reports: No Symptoms Reported Musculoskeletal: reports: No Symptoms Integumentary: reports: No Symptoms Neurological: reports: No Symptoms Endocrine: reports: No Symptoms Hematology/Lymphatic: reports: No Symptoms Psychiatric: reports: No Symptoms Vital Signs: Vital Signs Temperature 97.5 F L 04/19/19 08:30 Pulse Rate 73 04/19/19 08:30 Respiratory Rate 14 04/19/19 08:30 Blood Pressure 133/92 04/19/19 08:30 O2 Sat by Pulse Oximetry (%) 97 04/19/19 08:30 Constitutional: Yes: Well Nourished, No Distress, Calm Eyes: Yes: WNL, Conjunctiva Clear, EOM Intact HENT: Yes: WNL, Atraumatic, Normocephalic Neck: Yes: WNL, Supple, Trachea Midline Respiratory: Yes: WNL, Regular, CTA Bilaterally Gastrointestinal: Yes: WNL, Normal Bowel Sounds Renal/: Yes: WNL Cardiovascular: Yes: WNL, Regular Rate and Rhythm Musculoskeletal: Yes: WNL Extremities: Yes: WNL Integumentary: Yes: WNL Neurological: Yes: WNL, Alert, Oriented ...Motor Strength: WNL Psychiatric: Yes: WNL, Alert, Oriented - Other Data Labs, Other Data: CBC, BMP 04/19/19 08:20 04/19/19 08:18 INR, PTT INR 1.12 (0.83-1.09) H 04/19/19 08:20 Troponin, BNP 04/19/19 08:18 Troponin I < 0.02 Troponin, BNP 04/19/19 08:18 Troponin I < 0.02 Imaging - Results Chest X-ray: Image Reviewed (no i/e) EKG: Image Reviewed (sr wnl) Problem List - Problems (1) Acute coronary syndrome Code(s): I24.9 - ACUTE ISCHEMIC HEART DISEASE, UNSPECIFIED (2) Anticoagulation adequate Code(s): Z79.01 - [facility] (CURRENT) USE OF ANTICOAGULANTS (3) Arthritis Code(s): M19.90 - UNSPECIFIED OSTEOARTHRITIS, UNSPECIFIED SITE (4) Atopic conjunctivitis of right eye Code(s): H10.11 - ACUTE ATOPIC CONJUNCTIVITIS, RIGHT EYE (5) Atrial fibrillation with rapid ventricular response Code(s): I48.91 - UNSPECIFIED ATRIAL FIBRILLATION (6) BPH (benign prostatic hypertrophy) with urinary obstruction Code(s): N40.1 - BENIGN PROSTATIC HYPERPLASIA WITH LOWER URINARY TRACT SYMP; N13.8 - OTHER OBSTRUCTIVE AND REFLUX UROPATHY (7) Blepharitis of right eye Code(s): H01.003 - UNSPECIFIED BLEPHARITIS RIGHT EYE, UNSPECIFIED EYELID (8) CAD (coronary artery disease) Code(s): I25.10 - ATHSCL HEART DISEASE OF [place] CORONARY ARTERY W/O ANG PCTRS (9) COPD (chronic obstructive pulmonary disease) Code(s): J44.9 - CHRONIC OBSTRUCTIVE PULMONARY DISEASE, UNSPECIFIED (10) Chest pain Code(s): R07.9 - CHEST PAIN, UNSPECIFIED (11) Colon adenomas Code(s): D12.6 - BENIGN NEOPLASM OF COLON, UNSPECIFIED (12) Diverticula of colon Code(s): K57.30 - DVRTCLOS OF LG INT W/O PERFORATION OR ABSCESS W/O BLEEDING (13) EKG abnormalities Code(s): R94.31 - ABNORMAL ELECTROCARDIOGRAM [ECG] [EKG] (14) Esophageal spasm Code(s): K22.4 - DYSKINESIA OF ESOPHAGUS (15) Finger laceration Code(s): S61.219A - LACERATION W/O FB OF UNSP FINGER W/O DAMAGE TO NAIL, INIT (16) GERD with esophagitis Code(s): K21.0 - GASTRO-ESOPHAGEAL REFLUX DISEASE WITH ESOPHAGITIS (17) GERD without esophagitis Code(s): K21.9 - GASTRO-ESOPHAGEAL REFLUX DISEASE WITHOUT ESOPHAGITIS (18) HLD (hyperlipidemia) Code(s): E78.5 - HYPERLIPIDEMIA, UNSPECIFIED (19) HTN (hypertension) Code(s): I10 - ESSENTIAL (PRIMARY) HYPERTENSION (20) Hx laparoscopic cholecystectomy Code(s): Z90.49 - ACQUIRED ABSENCE OF OTHER SPECIFIED PARTS OF DIGESTIVE TRACT (21) Hx of cardiac arrest Code(s): Z86.74 - PERSONAL HISTORY OF SUDDEN CARDIAC ARREST (22) Lumbar disc disease Code(s): M51.9 - UNSP THORACIC, THORACOLUM AND LUMBOSACR INTVRT DISC DISORDER (23) Myocardial infarction, old Code(s): I25.2 - OLD MYOCARDIAL INFARCTION (24) Nosebleed Code(s): R04.0 - EPISTAXIS (25) Paroxysmal a-fib Code(s): I48.0 - PAROXYSMAL ATRIAL FIBRILLATION (26) Paroxysmal atrial fibrillation with rapid ventricular response Code(s): I48.0 - PAROXYSMAL ATRIAL FIBRILLATION (27) Proctitis Code(s): K62.89 - OTHER SPECIFIED DISEASES OF ANUS AND RECTUM (28) Right leg pain Code(s): M79.604 - PAIN IN RIGHT LEG (29) Teratoma of testis Code(s): C62.90 - MALIG NEOPLASM OF UNSP TESTIS, UNSP DESCENDED OR UNDESCENDED Assessment/Plan CAD coronary angiogram 12/14/2015: LAD mid 40% ISR (non-obstructive by IVUS on previous catheterization), distal 30%; D1 80%, with VERA flow 3; LCx luminal irregularities; OM1 small vessel; OM2 large vessel, with patent widely previous stent site; RCA proximal 40% ulcerated plaque similar to previous angiography; mid stent widely patent; LVEF 60%. coronary stent mid LAD 07/15; on 10/2011: mid RCA DANNY; mid LAD stent site with 40% ISR(in stent restenosis) HI, paroxysmal AFib (on Pradaxa for AC) ,diastolic CHF, hypertension, hyperlipidemia, COPD, GERD, BPH, anxiety, and peripheral neuropathy who presents to our Emergency Department due to palpitations and chest pain. PLan r/o mi telemetry check BNP cont AC in NSR now f/u EKGs
[2019-04-19 10:16] LABS: MAGNESIUM 2.2 mg/dL (1.8-2.4)
[2019-04-19 11:48] LABS: PLATELET ESTIMATE NORMAL
[2019-04-19 11:55] LABS: N-TERMINAL BNP 315.6 pg/ml (5-125)
[2019-04-19] MEDS ORDERED: NITROGLYCERIN SUBLINGUAL 1/150 0.4 MG TAB SL PRN (12:37)
--- NOTE | 2019-04-19 12:47 | HP ---
Admitting History and Physical - Primary Care Physician PCP: David Quiñonez - Admission History of Present Illness: Pt seen/ examined in er chart reviewed case d/w er resident In summary/ Er notes Pt is a 63 y/o M with a significant past medical history of CAD (multiple stents on plavix), [place], paroxysmal AFib (on Pradaxa for AC) ,diastolic CHF, hypertension, hyperlipidemia, COPD-- On prednisone-- Unable to wean off , GERD , BPH, anxiety, Sinusitis, Chronic pain / arthritis and peripheral neuropathy who presents to our Emergency Department due to palpitations and chest pain. Pt states that around midnight, he began to feel his heart beat irregularly and became short of breath. Pt states he has not missed any of his medications including cardizem. Does endorse increasing shortness of breath over past 1 month. Chest pain located left side of chest, non radiating, 5/10 in pain severity. 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 Afib) Pulmonary: Yes: Cancer, COPD Gastrointestinal: Yes: GERD Renal/: Yes: BPH Infectious Disease: Yes: Other (dog bite required rabies injections) Psych: Yes: Anxiety, Panic Musculoskeletal: Yes: Other (recent fracture Rt Tibia- no surgery due to cardiac issues) Endocrine: Yes: Diabetes Mellitus Dermatology: Yes: Basal Cell (basal cell carcinoma excised from right subclavicular area) - Past Surgical History Past Surgical History: Yes: Stent (recent stent was in Mar 2013.) - Smoking History Smoking history: Former smoker Have you smoked in the past 12 months: No Aproximately how many cigarettes per day: 60 If you are a former smoker, when did you quit?: 22 YEARS AGO - Alcohol/Substance Use Hx Alcohol Use: No History of Substance Use: reports: None - Social History ADL: Family Assistance Occupation: disabled former [employer] employee History of Recent Travel: No Home Medications - Allergies Allergies/Adverse Reactions: Allergies Allergy/AdvReac Type Severity Reaction Status Date / Time Shellfish Allergy Unknown Verified 04/19/19 07:52 Iodinated Contrast Media AdvReac Intermediate Verified 04/19/19 07:52 - Home Medications Home Medications: Ambulatory Orders Albuterol 0.083% Nebulizer Jessy [Ventolin 0.083% Nebulizer Soln -] 1 amp NEB TID PRN 04/19/19 Albuterol Sulfate Inhaler - [Ventolin Hfa Inhaler -] 1 puff IH BID 04/19/19 Aspirin 81 mg PO BID 04/19/19 Clopidogrel Bisulfate [Clopidogrel] 75 mg PO DAILY 04/19/19 Cyanocobalamin [Vitamin B12 -] 1,000 mcg PO DAILY 04/19/19 Dabigatran Etexilate Mesylate [Pradaxa] 110 mg PO BID 04/19/19 Diltiazem Cd [Cardizem Cd -] 240 mg PO ONCE 04/19/19 Famotidine [Pepcid -] 20 mg PO BID 04/19/19 Fluticasone Furoate [Flonase Sensimist] 9.9 ml NS BID 04/19/19 Folic Acid 1 mg PO DAILY 04/19/19 Hydrocodone/Acetaminophen [Hydrocodon-Acetaminophn 10-325] 1 each PO TID PRN 04/27 Lisinopril [Zestril] 2.5 mg PO DAILY 04/19/19 Mesalamine Suppository [Canasa Suppository] 1,000 mg RC DAILY PRN 04/19/19 Metoprolol Diaz/Hydrochlorothiaz [Metoprolol ER-Hctz 25-12.5 mg] 1 each PO BID 04/27 Montelukast Sodium [Singulair] 10 mg PO ONCE 04/19/19 Multivitamins [Tab-A-Vit -] 1 tab PO DAILY 04/19/19 Nitroglycerin [Nitrostat] 0.4 mg SL [id number] PRN MDD max 3 04/19/19 [place]-3/Dha/Epa/Fish Oil [Fish Oil 1,000 mg Softgel] 2,000 mg PO BID 04/19/19 Pravastatin Sodium [Pravachol (Nf)] 40 mg PO HS 04/19/19 Sucralfate [Carafate -] 1 gm PO QID 04/19/19 Zolpidem Tartrate [Ambien] 10 mg PO HS 04/19/19 predniSONE [Deltasone -] 10 mg PO DAILY 04/19/19 Review of Systems - Review of Systems Eyes: reports: No Symptoms HENT: reports: Nasal Congestion Neck: reports: No Symptoms Cardiovascular: reports: Chest Pain, Palpitations, Shortness of Breath Respiratory: reports: No Symptoms Gastrointestinal: reports: No Symptoms Genitourinary: reports: No Symptoms Musculoskeletal: reports: Joint Pain Neurological: reports: No Symptoms Endocrine: reports: No Symptoms Psychiatric: reports: No Symptoms Physical Examination Vital Signs: Vital Signs Temperature 98.0 F 04/19/19 12:05 Pulse Rate 68 04/19/19 12:05 Respiratory Rate 13 04/19/19 09:40 Blood Pressure 90/64 04/19/19 12:05 O2 Sat by Pulse Oximetry (%) 96 04/19/19 12:05 Constitutional: Yes: No Distress, Calm Eyes: Yes: Conjunctiva Clear Neck: Yes: Supple Cardiovascular: Yes: Regular Rate and Rhythm Respiratory: Yes: Diminished Gastrointestinal: Yes: Soft Edema: No Neurological: Yes: Alert Psychiatric: Yes: Alert Labs: CBC, BMP 04/19/19 08:20 04/19/19 08:18 Imaging - Results Chest X-ray: Report Reviewed EKG: Report Reviewed Problem List - Problems (1) Atrial fibrillation with rapid ventricular response Code(s): I48.91 - UNSPECIFIED ATRIAL FIBRILLATION (2) CAD (coronary artery disease) Code(s): I25.10 - ATHSCL HEART DISEASE OF [place] CORONARY ARTERY W/O ANG PCTRS (3) COPD (chronic obstructive pulmonary disease) Code(s): J44.9 - CHRONIC OBSTRUCTIVE PULMONARY DISEASE, UNSPECIFIED (4) Chest pain Code(s): R07.9 - CHEST PAIN, UNSPECIFIED (5) Lumbar disc disease Code(s): M51.9 - UNSP THORACIC, THORACOLUM AND LUMBOSACR INTVRT DISC DISORDER (6) Paroxysmal a-fib Code(s): I48.0 - PAROXYSMAL ATRIAL FIBRILLATION Assessment/Plan Monitor tele meds reviewed orders written. check tsh will follow
[2019-04-19] MEDS ORDERED: ZOLPIDEM TARTRATE 5 MG TABLET PO PRN (12:51)
[2019-04-19] MEDS ORDERED: oxyCODONE HCL 5 MG TABLET PO PRN (13:08)
[2019-04-19] MEDS ORDERED: ACETAMINOPHEN 325 MG TABLET (FP) PO PRN (13:08)
[2019-04-19] MEDS ORDERED: PT OWN MED DRAWER 7, Y5N ONE ×2 (16:06→21:39)
[2019-04-19] MEDS: SUCRALFATE 1 GM TABLET (FP) PO SCH ×3 (17:52→22:34)
[2019-04-19] MEDS ORDERED: HYDROCHLOROTHIAZIDE 12.5 MG CAPSULE (FP) PO SCH (22:00)
[2019-04-19] MEDS ORDERED: ATORVASTATIN CA 10 MG TABLET (FP) PO SCH (22:00)
[2019-04-19] MEDS ORDERED: ALBUTEROL SO4 8 GM HFA INHALER IH PRN (22:00)
[2019-04-19] MEDS ORDERED: metoPROLOL SUCCINATE 25 MG TAB.SR.24H (FP) PO SCH (22:00)
[2019-04-19] MEDS: OMEGA-3 ACID ETHYL ESTERS (FATTY-ACIDS) 1 GM CAPSULE (FP) PO SCH (22:33)
[2019-04-19] MEDS: DABIGATRAN ETEXILATE MESYLATE 150 MG CAPSULE PO SCH (22:33)
[2019-04-19] MEDS: FAMOTIDINE 20 MG TABLET PO SCH (22:34)
[2019-04-19] MEDS: metoPROLOL SUCCINATE 25 MG TAB.SR.24H (FP) PO SCH (22:34)
[2019-04-19] MEDS: ASPIRIN 81 MG CHEWABLE TABLETS PO SCH (22:34)
[2019-04-19] MEDS: FLUTICASONE PROP 0.05% 16 GM NASAL SPRAY NS SCH (22:37)
[2019-04-20] MEDS ORDERED: PT OWN MED DRAWER 7, Y5N ONE ×3 (07:50→15:30)
[2019-04-20] MEDS ORDERED: FOLIC ACID 1 MG TABLET (FP) PO SCH (10:00)
[2019-04-20] MEDS ORDERED: CLOPIDOGREL BISULFATE 75 MG TABLET (FP) PO SCH (10:00)
[2019-04-20] MEDS ORDERED: CYANOCOBALAMIN 1,000 MCG TABLET (FP) PO SCH (10:00)
[2019-04-20] MEDS ORDERED: predniSONE 10 MG TABLET (UD) PO SCH (10:00)
[2019-04-20] MEDS ORDERED: MULTIVITAMINS (DAILY MVI) TABLET (FP) PO SCH (10:00)
[2019-04-20] MEDS ORDERED: LISINOPRIL 5 MG TABLET (FP) PO SCH (10:00)
[2019-04-20] MEDS: DABIGATRAN ETEXILATE MESYLATE 150 MG CAPSULE PO SCH (10:14)
[2019-04-20] MEDS: ASPIRIN 81 MG CHEWABLE TABLETS PO SCH (10:16)
[2019-04-20] MEDS: OMEGA-3 ACID ETHYL ESTERS (FATTY-ACIDS) 1 GM CAPSULE (FP) PO SCH (10:16)
[2019-04-20] MEDS: SUCRALFATE 1 GM TABLET (FP) PO SCH ×3 (10:16→17:37)
[2019-04-20] MEDS: FAMOTIDINE 20 MG TABLET PO SCH (10:16)
[2019-04-20] MEDS: metoPROLOL SUCCINATE 25 MG TAB.SR.24H (FP) PO SCH (10:17)
[2019-04-20] MEDS: FLUTICASONE PROP 0.05% 16 GM NASAL SPRAY NS SCH (10:17)
--- NOTE | 2019-04-20 11:41 | PN ---
Progress Note, Physician History of Present Illness: Pt is a 63-year-old white male with history of hypertension, paroxysmal atrial fibrillation, extensive CAD with stents, who presents now with episode of palpitations/fluttering intermittently during the night, not improving with calcium channel ayad and beta-ayad, also took nitro for chest pressure that was associated with lightheadedness and nausea. Chest pressure is persistent now, though palpitations have resolved upon arrival. Patient notes increasing fatigue with climbing stairs over the last month, also with more frequent episodes of palpitations patient services representative of his bouts of atrial fibrillation. Occasional bilateral lower leg pain, but no swelling. - - Current Medication List Current Medications: Active Medications Acetaminophen (Tylenol -) 325 mg PO Q6H PRN PRN Reason: PAIN LEVEL 6-10 Last Admin: 04/20/19 04:49 Dose: 325 mg Albuterol Sulfate (Ventolin Hfa Inhaler -) 1 puff IH Q12H PRN PRN Reason: SHORTNESS OF BREATH Aspirin (Asa -) 81 mg PO BID [facility] Last Admin: 04/20/19 10:16 Dose: 81 mg Atorvastatin Calcium (Lipitor -) 10 mg PO HS [facility] Last Admin: 04/19/19 22:34 Dose: 10 mg Clopidogrel Bisulfate (Plavix -) 75 mg PO DAILY [facility] Last Admin: 04/20/19 10:14 Dose: 75 mg Cyanocobalamin (Vitamin B12 -) 1,000 mcg PO DAILY [facility] Last Admin: 04/20/19 10:14 Dose: 1,000 mcg Dabigatran (Pradaxa -) 150 mg PO BID [facility] Last Admin: 04/20/19 10:14 Dose: 150 mg Diltiazem HCl (Cardizem Cd -) 240 mg PO DAILY [facility] Last Admin: 04/20/19 10:14 Dose: 240 mg Famotidine (Pepcid -) 20 mg PO BID [facility] Last Admin: 04/20/19 10:16 Dose: 20 mg Fluticasone Propionate (Flonase -) 1 spray NS BID [facility] Last Admin: 04/20/19 10:17 Dose: 1 spray Folic Acid (Folic Acid -) 1 mg PO DAILY [facility] Last Admin: 04/20/19 10:14 Dose: 1 mg Lisinopril (Prinivil) 2.5 mg PO DAILY [facility] Last Admin: 04/20/19 10:14 Dose: 2.5 mg Metoprolol Succinate (Toprol Xl -) 25 mg PO BID [facility] Last Admin: 04/20/19 10:17 Dose: 25 mg Multivitamins/Minerals/Vitamin C (Tab-A-Vit -) 1 tab PO DAILY [facility] Last Admin: 04/20/19 10:14 Dose: 1 tab Nitroglycerin (Nitrostat -) 0.4 mg SL [id number] PRN PRN Reason: chest pain [id number] Ethyl Esters (Lovaza -) 2 gm PO BID [facility] Last Admin: 04/20/19 10:16 Dose: 2 gm Oxycodone HCl (Roxicodone -) 5 mg PO Q6H PRN PRN Reason: PAIN LEVEL 6-10 Last Admin: 04/20/19 04:51 Dose: 5 mg Prednisone (Deltasone -) 10 mg PO DAILY [facility] Last Admin: 04/20/19 10:14 Dose: 10 mg Sucralfate (Carafate -) 1 gm PO QID [facility] Last Admin: 04/20/19 10:16 Dose: 1 gm Zolpidem Tartrate (Ambien -) 5 mg PO HS PRN PRN Reason: INSOMNIA Last Admin: 04/19/19 22:39 Dose: 5 mg - Objective Vital Signs: Vital Signs Temperature 98.1 F 04/20/19 09:33 Pulse Rate 71 04/20/19 09:33 Respiratory Rate 20 04/20/19 09:33 Blood Pressure 106/66 04/20/19 09:33 O2 Sat by Pulse Oximetry (%) 96 04/19/19 20:41 Constitutional: Yes: Anxious Eyes: Yes: WNL HENT: Yes: WNL Labs: CBC, BMP 04/19/19 08:20 04/19/19 08:18 INR, PTT INR 1.12 (0.83-1.09) H 04/19/19 08:20 Problem List - Problems (1) Diastolic CHF Code(s): I50.30 - UNSPECIFIED DIASTOLIC (CONGESTIVE) HEART FAILURE (2) Anxiety Code(s): F41.9 - ANXIETY DISORDER, UNSPECIFIED (3) Arthritis Code(s): M19.90 - UNSPECIFIED OSTEOARTHRITIS, UNSPECIFIED SITE (4) BPH (benign prostatic hypertrophy) with urinary obstruction Code(s): N40.1 - BENIGN PROSTATIC HYPERPLASIA WITH LOWER URINARY TRACT SYMP; N13.8 - OTHER OBSTRUCTIVE AND REFLUX UROPATHY (5) CAD (coronary artery disease) Code(s): I25.10 - ATHSCL HEART DISEASE OF [place] CORONARY ARTERY W/O ANG PCTRS (6) COPD (chronic obstructive pulmonary disease) Code(s): J44.9 - CHRONIC OBSTRUCTIVE PULMONARY DISEASE, UNSPECIFIED (7) HLD (hyperlipidemia) Code(s): E78.5 - HYPERLIPIDEMIA, UNSPECIFIED (8) HTN (hypertension) Code(s): I10 - ESSENTIAL (PRIMARY) HYPERTENSION (9) Paroxysmal atrial fibrillation with rapid ventricular response Assessment/Plan: Pt is now in NSR, HR in the 60s bpm at rest. TNI < 0.02/x 3. Continue Diltiazem and metoprolol at present doses. From a cardiac perspective, pt may be discharged home and followed as outpt. He will see Dr. Mathew Manriquez, EP at [facility], for further evaluation of PAF, with consderation for eligibility for ablation therapy and/or PPM. Code(s): I48.0 - PAROXYSMAL ATRIAL FIBRILLATION
--- NOTE | 2019-04-20 12:28 | PN ---
Progress Note (short form) - Note Progress Note: see dc summary
[2019-04-20] MEDS ORDERED: CEFPODOXIME PROXETIL 200 MG TABLET [NF] PO SCH (12:30)
--- NOTE | 2019-04-20 16:22 | DS ---
Physical Examination Vital Signs: Vital Signs Temperature 98.2 F 04/20/19 14:47 Pulse Rate 79 04/20/19 14:47 Respiratory Rate 20 04/20/19 14:47 Blood Pressure 110/72 04/20/19 14:47 O2 Sat by Pulse Oximetry (%) 98 04/20/19 11:46 Constitutional: Yes: No Distress, Calm HENT: Yes: Other (sinus tenderness) Cardiovascular: Yes: Pulse Irregular Respiratory: Yes: CTA Bilaterally Gastrointestinal: Yes: Normal Bowel Sounds, Soft. No: Tenderness Edema: No Labs: CBC, BMP 04/19/19 08:20 04/19/19 08:18 Discharge Summary Problems reviewed: Yes Reason For Visit: ATRIAL FIBRILLATION W RAPID VENTRICULAR RESPONSE Current Active Problems Anxiety (Acute) Diastolic CHF (Acute) Hospital Course: Admitted for rapid Afib Labs unremarkable cardiac enzymes negative evaluated by Cardiology-- no changes to meds He needs application development specialist evaluation at [facility]-- DR Kohli has given the pt the information stable for dc home start PO antibiotics for sinusitis Condition: Good - Instructions Referrals: David Quiñonez MD [Primary Care Provider] - - Home Medications Comprehensive Discharge Medication List: Ambulatory Orders Albuterol 0.083% Nebulizer Jessy [Ventolin 0.083% Nebulizer Soln -] 1 amp NEB TID PRN 04/19/19 Albuterol Sulfate Inhaler - [Ventolin Hfa Inhaler -] 1 puff IH BID 04/19/19 Aspirin 81 mg PO BID 04/19/19 Clopidogrel Bisulfate [Clopidogrel] 75 mg PO DAILY 04/19/19 Cyanocobalamin [Vitamin B12 -] 1,000 mcg PO DAILY 04/19/19 Dabigatran Etexilate Mesylate [Pradaxa] 110 mg PO BID 04/19/19 Diltiazem Cd [Cardizem Cd -] 240 mg PO ONCE 04/19/19 Famotidine [Pepcid -] 20 mg PO BID 04/19/19 Fluticasone Furoate [Flonase Sensimist] 9.9 ml NS BID 04/19/19 Folic Acid 1 mg PO DAILY 04/19/19 Hydrocodone/Acetaminophen [Hydrocodon-Acetaminophn 10-325] 1 each PO TID PRN 04/27 Lisinopril [Zestril] 2.5 mg PO DAILY 04/19/19 Mesalamine Suppository [Canasa Suppository] 1,000 mg RC DAILY PRN 04/19/19 Metoprolol Diaz/Hydrochlorothiaz [Metoprolol ER-Hctz 25-12.5 mg] 1 each PO BID 04/27 Montelukast Sodium [Singulair] 10 mg PO ONCE 04/19/19 Multivitamins [Tab-A-Vit -] 1 tab PO DAILY 04/19/19 Nitroglycerin [Nitrostat] 0.4 mg SL [id number] PRN MDD max 3 04/19/19 [place]-3/Dha/Epa/Fish Oil [Fish Oil 1,000 mg Softgel] 2,000 mg PO BID 04/19/19 Pravastatin Sodium [Pravachol (Nf)] 40 mg PO HS 04/19/19 Sucralfate [Carafate -] 1 gm PO QID 04/19/19 Zolpidem Tartrate [Ambien] 10 mg PO HS 04/19/19 predniSONE [Deltasone -] 10 mg PO DAILY 04/19/19
[2019-04-20 18:23] VITALS: BP 125/76; PULSE 72; TEMP 97.8
[2019-04-21] MEDS ORDERED: ASPIRIN 81 MG CHEWABLE TABLETS PO SCH (10:00)
== END 2019-04-20 19:00 | disposition home or self-care (01) ==
LOC: JER 07:37 → JERBED 11:00 → J4W 14:34
PROVIDERS: ADMIT Internal Medicine; ATTEND Internal Medicine
DX: I48.0 Paroxysmal atrial fibrillation (principal); I11.0 Hypertensive heart disease with heart failure; E78.5 Hyperlipidemia, unspecified; I25.10 Atherosclerotic heart disease of native coronary artery without angina pectoris; I25.2 Old myocardial infarction; I24.9 Acute ischemic heart disease, unspecified; I50.30 Unspecified diastolic (congestive) heart failure; J44.9 Chronic obstructive pulmonary disease, unspecified; K21.9 Gastro-esophageal reflux disease without esophagitis; N40.0 Benign prostatic hyperplasia without lower urinary tract symptoms; F41.9 Anxiety disorder, unspecified; G62.9 Polyneuropathy, unspecified; M19.90 Unspecified osteoarthritis, unspecified site; R94.31 Abnormal electrocardiogram [ECG] [EKG]; Z85.47 Personal history of malignant neoplasm of testis; Z87.891 Personal history of nicotine dependence; Z79.82 Long term (current) use of aspirin; Z95.5 Presence of coronary angioplasty implant and graft; Z79.01 Long term (current) use of anticoagulants; Z91.013 Allergy to seafood; Z91.041 Radiographic dye allergy status
CPT/HCPCS: 36415; 71045-TC-FY; 80053; 82550; 83735; 83880; 84100; 84443; 84484; 85025; 85610; 85730; 93005; 93010; 99285-25; G0378

== ENCOUNTER 2020-11-15 15:28 | Inpatient (IN) | payer OTHER ==
[2020-11-15] MEDS ORDERED: diazePAM 5 MG TABLET PO ONE (16:02)
[2020-11-15] MEDS ORDERED: KETOROLAC TROMETHAMINE 60 MG/2 ML VIAL IM ONE (16:02)
[2020-11-15] MEDS ORDERED: ACETAMINOPHEN 325 MG TABLET (FP) PO ONE (16:02)
[2020-11-15] MEDS ORDERED: LIDOCAINE 5% TOPICAL PATCH TP ONE (16:02)
[2020-11-15] MEDS ORDERED: LIDOCAINE 5% TOPICAL PATCH ONE (16:05)
[2020-11-15] MEDS ORDERED: KETOROLAC TROMETHAMINE 30 MG/1 ML VIAL ONE (16:05)
[2020-11-15] MEDS ORDERED: diazePAM 5 MG TABLET ONE (16:06)
[2020-11-15] MEDS ORDERED: ACETAMINOPHEN 500 MG TABLET (FP) ONE (16:06)
[2020-11-15] MEDS ORDERED: SODIUM CHLORIDE 1,000 ML IV STA (16:18)
[2020-11-15] MEDS ORDERED: DEXAMETHASONE SOD PHOSPHATE 10 MG/1 ML VIAL IVPUSH ONE (17:29)
[2020-11-15] MEDS ORDERED: morphine CARPU-JECT 4 MG/1 ML DISP.SYRIN IVPUSH ONE (17:29)
[2020-11-15] MEDS ORDERED: DEXAMETHASONE SOD PHOSPHATE 10 MG/1 ML VIAL ONE (17:42)
[2020-11-15] MEDS ORDERED: morphine SULFATE 4 MG/ML VIAL ONE (18:09)
[2020-11-15 18:30] LABS: BASO % 0.1 % (0-2.0); EOS % 0.1 % (0-4.5); HEMATOCRIT 41.6 % (35.4-49); HEMOGLOBIN 13.9 GM/dL (11.7-16.9); LYMPH % 5.8 % (8-40); MCH 30.4 pg (25.7-33.7); MCHC 33.3 g/dl (32.0-35.9); MEAN CELL VOLUME 91.4 fl (80-96); MEAN PLT VOLUME 7.5 fl (7.5-11.1); MONO % 6.1 % (3.8-10.2); NEUT % 87.9 % (42.8-82.8); PLATELET COUNT 358 K/MM3 (134-434); RBC 4.56 M/mm3 (4.00-5.60); RDW 14.3 % (11.9-15.9); WHITE BLOOD COUNT 15.8 K/mm3 (4.0-10.0)
[2020-11-15 18:37] LABS: INR 1.07 (0.83-1.09); PROTHROMBIN TIME (PATIENT) 13.1 SEC (9.7-13.0)
[2020-11-15 18:50] LABS: ALBUMIN 3.8 g/dl (3.4-5.0); BLOOD UREA NITROGEN 16.8 mg/dL (7-18); CALCIUM 9.7 mg/dL (8.5-10.1)
[2020-11-15 18:54] LABS: CREATININE 0.8 mg/dL (0.55-1.3)
[2020-11-15 18:55] LABS: BILIRUBIN,TOTAL 0.6 mg/dL (0.2-1); TOT PROT 7.2 g/dl (6.4-8.2)
[2020-11-15 20:25] LABS: ANISOCYTOSIS 1+; MACROCYTOSIS 0; PLATELET ESTIMATE NORMAL
[2020-11-15] MEDS ORDERED: ALBUTEROL SO4 HFA INHALER IH PRN (21:59)
[2020-11-15] MEDS ORDERED: MESALAMINE 1000 MG/SUPP.RECT SUPP RC PRN (21:59)
[2020-11-15] MEDS ORDERED: ZOLPIDEM TARTRATE 5 MG TABLET PO PRN (21:59)
[2020-11-15] MEDS ORDERED: NITROGLYCERIN SUBLINGUAL 1/150 0.4 MG TAB SL PRN (21:59)
[2020-11-15] MEDS ORDERED: DABIGATRAN ETEXILATE MESYLATE 150 MG CAPSULE PO SCH (22:00)
[2020-11-15] MEDS ORDERED: ATORVASTATIN CA 20 MG TABLET (FP) ONE (22:29)
[2020-11-15] MEDS ORDERED: FAMOTIDINE 20 MG TABLET ONE (22:29)
[2020-11-15] MEDS ORDERED: SUCRALFATE 1 GM TABLET (FP) ONE (22:30)
[2020-11-15] MEDS ORDERED: metoPROLOL SUCCINATE 25 MG TAB.SR.24H (FP) ONE (22:30)
[2020-11-15] MEDS ORDERED: MONTELUKAST NA 10 MG TABLET ONE (22:30)
[2020-11-15] MEDS: MONTELUKAST NA 10 MG TABLET PO SCH (22:37)
[2020-11-15] MEDS: ATORVASTATIN CA 20 MG TABLET (FP) PO SCH (22:37)
[2020-11-15] MEDS: metoPROLOL SUCCINATE 25 MG TAB.SR.24H (FP) PO SCH (22:37)
[2020-11-15] MEDS: FAMOTIDINE 20 MG TABLET PO SCH (22:37)
[2020-11-15] MEDS: SUCRALFATE 1 GM TABLET (FP) PO SCH (22:37)
[2020-11-16 01:03] LABS: URINE APPEARANCE CLEAR; URINE BILIRUBIN NEGATIVE (NEGATIVE); URINE COLOR YELLOW; URINE GLUCOSE (UA) 1+ (NEGATIVE); URINE KETONE TRACE (NEGATIVE); URINE LEUK ESTERASE NEGATIVE (NEGATIVE); URINE NITRITE NEGATIVE (NEGATIVE); URINE PROTEIN NEGATIVE (NEGATIVE); URINE UROBILINOGEN 0.2 mg/dL (0.2-1.0)
[2020-11-16 01:50] VITALS: BMI 28.3
[2020-11-16] MEDS ORDERED: PT OWN MED DRAWER 7, Y5N ONE ×2 (06:43→09:57)
[2020-11-16] MEDS ORDERED: CLOPIDOGREL BISULFATE 75 MG TABLET (FP) PO SCH (10:00)
[2020-11-16] MEDS ORDERED: ASPIRIN 81 MG CHEWABLE TABLETS PO SCH (10:00)
[2020-11-16] MEDS: MULTIVITAMINS (DAILY MVI) TABLET (FP) PO SCH (10:04)
[2020-11-16] MEDS: FOLIC ACID 1 MG TABLET (FP) PO SCH (10:04)
[2020-11-16] MEDS: CYANOCOBALAMIN 1,000 MCG TABLET (FP) PO SCH (10:04)
[2020-11-16] MEDS: LISINOPRIL 5 MG TABLET PO SCH (10:05)
[2020-11-16] MEDS: FAMOTIDINE 20 MG TABLET PO SCH ×2 (10:06→21:17)
[2020-11-16] MEDS: metoPROLOL SUCCINATE 25 MG TAB.SR.24H (FP) PO SCH ×2 (10:06→21:17)
[2020-11-16] MEDS: SUCRALFATE 1 GM TABLET (FP) PO SCH ×4 (10:58→21:17)
[2020-11-16] MEDS ORDERED: INSULIN (NOVOLOG) ASPART 100 UNITS/ML 10ML VIAL ONE (11:08)
[2020-11-16] MEDS ORDERED: ZOLPIDEM TARTRATE 5 MG TABLET PO PRN (11:08)
[2020-11-16] MEDS: GABAPENTIN 100 MG CAPSULE PO SCH ×2 (13:10→21:17)
[2020-11-16] MEDS: CLOPIDOGREL BISULFATE 75 MG TABLET (FP) PO SCH (15:07)
[2020-11-16] MEDS: MONTELUKAST NA 10 MG TABLET PO SCH (21:17)
[2020-11-16] MEDS: ATORVASTATIN CA 20 MG TABLET (FP) PO SCH (21:17)
[2020-11-16] MEDS: DABIGATRAN ETEXILATE MESYLATE 150 MG CAPSULE PO SCH (21:18)
[2020-11-16] MEDS: ASPIRIN COATED 81 MG TABLET.EC PO SCH (21:18)
[2020-11-16] MEDS: morphine SULFATE 4 MG/ML VIAL IVPUSH PRN (23:43)
[2020-11-17] MEDS: morphine SULFATE 4 MG/ML VIAL IVPUSH PRN ×2 (05:45→16:12)
[2020-11-17] MEDS: SUCRALFATE 1 GM TABLET (FP) PO SCH ×4 (06:12→22:08)
[2020-11-17] MEDS: GABAPENTIN 100 MG CAPSULE PO SCH ×4 (06:12→22:07)
[2020-11-17] MEDS: CLOPIDOGREL BISULFATE 75 MG TABLET (FP) PO SCH (11:49)
[2020-11-17] MEDS ORDERED: ONDANSETRON 4 MG/2 ML VIAL IVPB PRN (13:24)
[2020-11-17] MEDS ORDERED: REGADENOSON 0.4 MG/5 ML PRE-FILLED SYRINGE IVPUSH ONE (14:45)
[2020-11-17] MEDS: ASPIRIN COATED 81 MG TABLET.EC PO SCH ×2 (16:38→22:09)
[2020-11-17] MEDS: FOLIC ACID 1 MG TABLET (FP) PO SCH (16:39)
[2020-11-17] MEDS: DABIGATRAN ETEXILATE MESYLATE 150 MG CAPSULE PO SCH ×2 (16:39→22:06)
[2020-11-17] MEDS: FAMOTIDINE 20 MG TABLET PO SCH ×2 (16:39→22:08)
[2020-11-17] MEDS: morphine SO4 SUSTAINED ACTING 30 MG TABLET.SA PO SCH ×2 (16:40→22:09)
[2020-11-17] MEDS: CYANOCOBALAMIN 1,000 MCG TABLET (FP) PO SCH (16:54)
[2020-11-17] MEDS: LISINOPRIL 5 MG TABLET PO SCH (16:54)
[2020-11-17] MEDS: MULTIVITAMINS (DAILY MVI) TABLET (FP) PO SCH (16:55)
[2020-11-17] MEDS: metoPROLOL SUCCINATE 25 MG TAB.SR.24H (FP) PO SCH ×2 (16:56→22:42)
[2020-11-17] MEDS: predniSONE 10 MG TABLET (UD) PO SCH (17:04)
[2020-11-17] MEDS: MONTELUKAST NA 10 MG TABLET PO SCH (22:07)
[2020-11-17] MEDS: ATORVASTATIN CA 20 MG TABLET (FP) PO SCH (22:08)
[2020-11-18] MEDS: morphine SULFATE 4 MG/ML VIAL IVPUSH PRN (00:52)
[2020-11-18] MEDS: GABAPENTIN 100 MG CAPSULE PO SCH ×3 (06:00→21:36)
[2020-11-18] MEDS: SUCRALFATE 1 GM TABLET (FP) PO SCH ×4 (06:00→21:41)
[2020-11-18] MEDS: DABIGATRAN ETEXILATE MESYLATE 150 MG CAPSULE PO SCH ×2 (10:02→21:34)
[2020-11-18] MEDS: LISINOPRIL 5 MG TABLET PO SCH (10:02)
[2020-11-18] MEDS: MULTIVITAMINS (DAILY MVI) TABLET (FP) PO SCH (10:02)
[2020-11-18] MEDS: metoPROLOL SUCCINATE 25 MG TAB.SR.24H (FP) PO SCH ×3 (10:02→21:43)
[2020-11-18] MEDS: predniSONE 10 MG TABLET (UD) PO SCH (10:02)
[2020-11-18] MEDS: CYANOCOBALAMIN 1,000 MCG TABLET (FP) PO SCH (10:03)
[2020-11-18] MEDS: FOLIC ACID 1 MG TABLET (FP) PO SCH (10:03)
[2020-11-18] MEDS: ASPIRIN COATED 81 MG TABLET.EC PO SCH ×2 (10:03→21:36)
[2020-11-18] MEDS: FAMOTIDINE 20 MG TABLET PO SCH ×2 (10:03→21:41)
[2020-11-18] MEDS: morphine SO4 SUSTAINED ACTING 30 MG TABLET.SA PO SCH ×2 (11:15→21:36)
[2020-11-18] MEDS: ATORVASTATIN CA 20 MG TABLET (FP) PO SCH (21:38)
[2020-11-18] MEDS: MONTELUKAST NA 10 MG TABLET PO SCH (21:39)
[2020-11-19] MEDS: GABAPENTIN 100 MG CAPSULE PO SCH ×3 (05:34→21:46)
[2020-11-19] MEDS: SUCRALFATE 1 GM TABLET (FP) PO SCH ×4 (06:06→21:46)
[2020-11-19] MEDS: morphine SO4 SUSTAINED ACTING 30 MG TABLET.SA PO SCH ×2 (09:10→21:44)
[2020-11-19] MEDS: CYANOCOBALAMIN 1,000 MCG TABLET (FP) PO SCH (09:13)
[2020-11-19] MEDS: FOLIC ACID 1 MG TABLET (FP) PO SCH (09:13)
[2020-11-19] MEDS: FAMOTIDINE 20 MG TABLET PO SCH ×2 (09:13→21:46)
[2020-11-19] MEDS: LISINOPRIL 5 MG TABLET PO SCH (09:13)
[2020-11-19] MEDS: metoPROLOL SUCCINATE 25 MG TAB.SR.24H (FP) PO SCH ×2 (09:13→21:46)
[2020-11-19] MEDS: predniSONE 10 MG TABLET (UD) PO SCH (09:13)
[2020-11-19] MEDS: DABIGATRAN ETEXILATE MESYLATE 150 MG CAPSULE PO SCH ×2 (09:14→21:45)
[2020-11-19] MEDS: ASPIRIN COATED 81 MG TABLET.EC PO SCH (09:14)
[2020-11-19] MEDS: MULTIVITAMINS (DAILY MVI) TABLET (FP) PO SCH (09:14)
[2020-11-19] MEDS: MORPHINE SULFATE 2 MG/ML VIAL IVPUSH PRN (19:42)
[2020-11-19] MEDS: MONTELUKAST NA 10 MG TABLET PO SCH (21:46)
[2020-11-19] MEDS: ATORVASTATIN CA 20 MG TABLET (FP) PO SCH (21:46)
[2020-11-20] MEDS: MORPHINE SULFATE 2 MG/ML VIAL IVPUSH PRN ×2 (02:54→11:15)
[2020-11-20] MEDS: GABAPENTIN 100 MG CAPSULE PO SCH ×3 (05:58→21:08)
[2020-11-20] MEDS: SUCRALFATE 1 GM TABLET (FP) PO SCH ×4 (05:59→21:09)
[2020-11-20] MEDS ORDERED: PT OWN MED DRAWER 7, Y5N ONE (09:33)
[2020-11-20] MEDS: morphine SO4 SUSTAINED ACTING 30 MG TABLET.SA PO SCH ×2 (10:01→21:09)
[2020-11-20] MEDS: predniSONE 10 MG TABLET (UD) PO SCH (10:02)
[2020-11-20] MEDS: FOLIC ACID 1 MG TABLET (FP) PO SCH (10:02)
[2020-11-20] MEDS: metoPROLOL SUCCINATE 25 MG TAB.SR.24H (FP) PO SCH ×2 (10:02→21:09)
[2020-11-20] MEDS: MULTIVITAMINS (DAILY MVI) TABLET (FP) PO SCH (10:02)
[2020-11-20] MEDS: LISINOPRIL 5 MG TABLET PO SCH (10:02)
[2020-11-20] MEDS: CYANOCOBALAMIN 1,000 MCG TABLET (FP) PO SCH (10:02)
[2020-11-20] MEDS: FAMOTIDINE 20 MG TABLET PO SCH ×2 (10:02→21:09)
[2020-11-20] MEDS: DABIGATRAN ETEXILATE MESYLATE 150 MG CAPSULE PO SCH ×2 (10:19→21:08)
[2020-11-20] MEDS: MONTELUKAST NA 10 MG TABLET PO SCH (21:08)
[2020-11-20] MEDS: ATORVASTATIN CA 20 MG TABLET (FP) PO SCH (21:10)
[2020-11-21] MEDS: MORPHINE SULFATE 2 MG/ML VIAL IVPUSH PRN ×3 (02:58→16:46)
[2020-11-21] MEDS: GABAPENTIN 100 MG CAPSULE PO SCH ×3 (06:08→21:31)
[2020-11-21] MEDS: SUCRALFATE 1 GM TABLET (FP) PO SCH ×4 (06:08→21:31)
[2020-11-21] MEDS: MULTIVITAMINS (DAILY MVI) TABLET (FP) PO SCH (09:25)
[2020-11-21] MEDS: DABIGATRAN ETEXILATE MESYLATE 150 MG CAPSULE PO SCH (09:26)
[2020-11-21] MEDS: FAMOTIDINE 20 MG TABLET PO SCH ×2 (09:26→21:31)
[2020-11-21] MEDS: CYANOCOBALAMIN 1,000 MCG TABLET (FP) PO SCH (09:26)
[2020-11-21] MEDS: LISINOPRIL 5 MG TABLET PO SCH (09:26)
[2020-11-21] MEDS: predniSONE 10 MG TABLET (UD) PO SCH (09:26)
[2020-11-21] MEDS: metoPROLOL SUCCINATE 25 MG TAB.SR.24H (FP) PO SCH ×2 (09:26→21:31)
[2020-11-21] MEDS: FOLIC ACID 1 MG TABLET (FP) PO SCH (09:27)
[2020-11-21] MEDS: morphine SO4 SUSTAINED ACTING 30 MG TABLET.SA PO SCH ×2 (10:09→13:12)
[2020-11-21] MEDS: POLYETHYLENE GLYCOL 3350 119 GM BTL PO SCH (13:09)
[2020-11-21 15:46] LABS: HEMATOCRIT 39.8 % (35.4-49); HEMOGLOBIN 13.2 GM/dL (11.7-16.9); MCH 30.1 pg (25.7-33.7); MCHC 33.2 g/dl (32.0-35.9); MEAN CELL VOLUME 90.7 fl (80-96); MEAN PLT VOLUME 7.6 fl (7.5-11.1); PLATELET COUNT 328 10^3/uL (134-434); RBC 4.38 M/mm3 (4.00-5.60); RDW 14.8 % (11.9-15.9); WHITE BLOOD COUNT 14.1 K/mm3 (4.0-10.0)
[2020-11-21 15:54] LABS: INR 1.24 (0.83-1.09); PROTHROMBIN TIME (PATIENT) 15.2 SEC (9.7-13.0)
[2020-11-21 15:56] LABS: ACTIVATED PTT 40.7 SECONDS (25.2-36.5)
[2020-11-21 16:08] LABS: CALCIUM 9.1 mg/dL (8.5-10.1)
[2020-11-21 16:09] LABS: ALBUMIN 3.3 g/dl (3.4-5.0)
[2020-11-21 16:12] LABS: CREATININE 0.7 mg/dL (0.55-1.3)
[2020-11-21 16:13] LABS: BILIRUBIN,TOTAL 0.4 mg/dL (0.2-1)
[2020-11-21 16:14] LABS: TOT PROT 6.3 g/dl (6.4-8.2)
[2020-11-21] MEDS: ATORVASTATIN CA 20 MG TABLET (FP) PO SCH (21:31)
[2020-11-21] MEDS: MONTELUKAST NA 10 MG TABLET PO SCH (21:31)
[2020-11-22] MEDS: morphine SO4 SUSTAINED ACTING 30 MG TABLET.SA PO SCH ×3 (00:05→23:21)
[2020-11-22 00:18] LABS: N-TERMINAL BNP 65.8 pg/ml (5-125)
[2020-11-22] MEDS: MORPHINE SULFATE 2 MG/ML VIAL IVPUSH PRN ×2 (04:16→19:41)
[2020-11-22] MEDS: GABAPENTIN 100 MG CAPSULE PO SCH ×3 (06:00→21:35)
[2020-11-22] MEDS: SUCRALFATE 1 GM TABLET (FP) PO SCH ×4 (06:01→21:35)
[2020-11-22] MEDS: MULTIVITAMINS (DAILY MVI) TABLET (FP) PO SCH (09:16)
[2020-11-22] MEDS: FAMOTIDINE 20 MG TABLET PO SCH ×2 (09:16→21:35)
[2020-11-22] MEDS: predniSONE 10 MG TABLET (UD) PO SCH (09:16)
[2020-11-22] MEDS: LISINOPRIL 5 MG TABLET PO SCH (09:16)
[2020-11-22] MEDS: CYANOCOBALAMIN 1,000 MCG TABLET (FP) PO SCH (09:16)
[2020-11-22] MEDS: metoPROLOL SUCCINATE 25 MG TAB.SR.24H (FP) PO SCH ×2 (09:16→21:35)
[2020-11-22] MEDS: FOLIC ACID 1 MG TABLET (FP) PO SCH (09:16)
[2020-11-22] MEDS: POLYETHYLENE GLYCOL 3350 119 GM BTL PO SCH (09:22)
[2020-11-22] MEDS ORDERED: HEPARIN NA (PORCINE) 5,000 UNITS/ML 1ML VIAL IVPUSH PRN ×2 (10:56)
[2020-11-22] MEDS ORDERED: HEPARIN SOD,PORK IN 0.45% NACL 25,000 UNITS/500 ML INFUS.BAG IVPB SCH (11:00)
[2020-11-22] MEDS: HEPARIN SOD,PORK IN 0.45% NACL 25,000 UNIT/500 ML INFUS.BAG IVPB SCH (13:06)
[2020-11-22] MEDS: ATORVASTATIN CA 20 MG TABLET (FP) PO SCH (21:35)
[2020-11-22] MEDS: MONTELUKAST NA 10 MG TABLET PO SCH (21:35)
[2020-11-23] MEDS: MORPHINE SULFATE 2 MG/ML VIAL IVPUSH PRN (03:53)
[2020-11-23] MEDS: GABAPENTIN 100 MG CAPSULE PO SCH ×3 (06:41→21:11)
[2020-11-23] MEDS: SUCRALFATE 1 GM TABLET (FP) PO SCH ×4 (06:41→21:11)
[2020-11-23] MEDS: FAMOTIDINE 20 MG TABLET PO SCH ×2 (09:16→21:11)
[2020-11-23] MEDS: FOLIC ACID 1 MG TABLET (FP) PO SCH (09:16)
[2020-11-23] MEDS: metoPROLOL SUCCINATE 25 MG TAB.SR.24H (FP) PO SCH ×2 (09:16→21:11)
[2020-11-23] MEDS: predniSONE 10 MG TABLET (UD) PO SCH (09:16)
[2020-11-23] MEDS: CYANOCOBALAMIN 1,000 MCG TABLET (FP) PO SCH (09:16)
[2020-11-23] MEDS: LISINOPRIL 5 MG TABLET PO SCH (09:16)
[2020-11-23] MEDS: MULTIVITAMINS (DAILY MVI) TABLET (FP) PO SCH ×2 (09:16→09:21)
[2020-11-23] MEDS: morphine SO4 SUSTAINED ACTING 30 MG TABLET.SA PO SCH ×2 (09:17→21:11)
[2020-11-23] MEDS: POLYETHYLENE GLYCOL 3350 119 GM BTL PO SCH ×2 (09:18→21:11)
[2020-11-23] MEDS ORDERED: ALPRAZolam 1 MG TABLET PO PRN (12:24)
[2020-11-23] MEDS: HEPARIN SOD,PORK IN 0.45% NACL 25,000 UNIT/500 ML INFUS.BAG IVPB SCH (15:29)
[2020-11-23] MEDS: ATORVASTATIN CA 20 MG TABLET (FP) PO SCH (21:11)
[2020-11-23] MEDS: MONTELUKAST NA 10 MG TABLET PO SCH (21:11)
[2020-11-24] MEDS ORDERED: D5-1/2NS+20 MEQ KCL - 20 MEQ/1,000 ML INFUS.BAG IV SCH (00:01)
[2020-11-24] MEDS: MAG HYDROX/AL HYDROX/SIMETH 30 ML UNIT-DOSE CUP PO PRN (00:06)
[2020-11-24] MEDS: MORPHINE SULFATE 2 MG/ML VIAL IVPUSH PRN ×3 (02:10→21:10)
[2020-11-24] MEDS: SUCRALFATE 1 GM TABLET (FP) PO SCH ×4 (06:04→21:17)
[2020-11-24] MEDS: GABAPENTIN 100 MG CAPSULE PO SCH ×3 (06:04→21:13)
[2020-11-24] MEDS ORDERED: BACITRACIN 15 GM TUBE TOPICAL OINTMENT ONE (07:02)
[2020-11-24] MEDS ORDERED: BUPIVACAINE HCL 50 ML ONE (07:02)
[2020-11-24] MEDS ORDERED: THROMBIN (BOVINE) 5,000 UNIT VIAL TP ONE ×3 (07:03→08:45)
[2020-11-24 07:27] LABS: HEMOGLOBIN 14.4 GM/dL (11.7-16.9); MCH 30.3 pg (25.7-33.7); MCHC 33.4 g/dl (32.0-35.9); MEAN CELL VOLUME 90.7 fl (80-96); MEAN PLT VOLUME 7.6 fl (7.5-11.1); PLATELET COUNT 328 10^3/uL (134-434); RBC 4.74 M/mm3 (4.00-5.60); RDW 14.3 % (11.9-15.9); WHITE BLOOD COUNT 11.6 K/mm3 (4.0-10.0)
[2020-11-24] MEDS ORDERED: ROCURONIUM BROMIDE 100 MG/10 ML VIAL ONE (07:31)
[2020-11-24] MEDS ORDERED: MIDAZOLAM HCL 2 MG/2 ML SINGLE DOSE VIAL ONE ×2 (07:31)
[2020-11-24] MEDS ORDERED: fentaNYL CITRATE 250 MCG/5 ML VIAL ONE (07:31)
[2020-11-24] MEDS ORDERED: PROPOFOL 20 ML ONE ×2 (07:31)
[2020-11-24] MEDS ORDERED: LIDOCAINE HCL/PF 2% SDV 5ML VIAL ONE (07:31)
[2020-11-24] MEDS ORDERED: ceFAZolin SODIUM 1 GM VIAL ONE ×3 (08:08→23:18)
[2020-11-24] MEDS ORDERED: ceFAZolin SODIUM 1 GM VIAL IVPB ONE (08:12)
[2020-11-24] MEDS ORDERED: DEXAMETHASONE SOD PHOSPHATE 4 MG/1 ML VIAL ONE (08:15)
[2020-11-24] MEDS ORDERED: ONDANSETRON 4 MG/2 ML VIAL ONE ×2 (08:15→11:31)
[2020-11-24] MEDS ORDERED: BACITRACIN 50,000 UNITS VIAL TP ONE ×2 (08:38→08:40)
[2020-11-24] MEDS ORDERED: BUPIVACAINE HCL/PF 0.5% (5 MG/ML) 30 ML VIAL IJ ONE (09:30)
[2020-11-24] MEDS ORDERED: GLYCOPYRROLATE 0.2 MG/1 ML VIAL ONE (09:32)
[2020-11-24] MEDS ORDERED: NEOSTIGMINE METHYLSULFATE 0.5 MG/ML - 10 ML MDV ONE (09:32)
[2020-11-24] MEDS ORDERED: ACETAMINOPHEN 1000 MG/100 ML VIAL (NON FORMULARY) IVPB PRN (10:04)
[2020-11-24] MEDS ORDERED: LACTATED RINGERS SOLUTION 1,000 ML IV SCH (10:15)
[2020-11-24] MEDS ORDERED: diazePAM 5 MG TABLET ONE (11:28)
[2020-11-24] MEDS: ONDANSETRON 4 MG/2 ML VIAL IVPUSH PRN (11:30)
[2020-11-24] MEDS: diazePAM 5 MG TABLET PO SCH ×2 (11:30→18:06)
[2020-11-24] MEDS: D5-1/2NS+20 MEQ KCL - 20 MEQ/1,000 ML INFUS.BAG IV SCH (12:30)
[2020-11-24] MEDS: morphine SO4 SUSTAINED ACTING 30 MG TABLET.SA PO SCH (13:16)
[2020-11-24] MEDS: POLYETHYLENE GLYCOL 3350 119 GM BTL PO SCH ×2 (13:25→21:13)
[2020-11-24] MEDS: FAMOTIDINE 20 MG TABLET PO SCH ×2 (13:26→21:12)
[2020-11-24] MEDS: LISINOPRIL 5 MG TABLET PO SCH (13:26)
[2020-11-24] MEDS: metoPROLOL SUCCINATE 25 MG TAB.SR.24H (FP) PO SCH ×2 (13:26→21:12)
[2020-11-24] MEDS: predniSONE 10 MG TABLET (UD) PO SCH (13:34)
[2020-11-24] MEDS ORDERED: DEXTROSE 5%-WATER - 50 ML IVPB ONE ×2 (16:41→23:18)
[2020-11-24] MEDS: CEFAZOLIN 1 GM in DEXTROSE 5%-WATER - 1 GM/50 ML IVPB IVPB SCH ×2 (17:04→23:26)
[2020-11-24] MEDS ORDERED: PT OWN MED DRAWER 7, Y5N ONE ×2 (17:21→21:15)
[2020-11-24] MEDS: MONTELUKAST NA 10 MG TABLET PO SCH (21:12)
[2020-11-24] MEDS: ATORVASTATIN CA 20 MG TABLET (FP) PO SCH (21:12)
[2020-11-24] MEDS: oxyCODONE HCL 5 MG TABLET PO PRN (23:26)
[2020-11-25] MEDS: MORPHINE SULFATE 2 MG/ML VIAL IVPUSH PRN ×6 (01:17→20:18)
[2020-11-25] MEDS: diazePAM 5 MG TABLET PO SCH ×3 (02:11→18:10)
[2020-11-25] MEDS: oxyCODONE HCL 5 MG TABLET PO PRN ×5 (04:03→22:11)
[2020-11-25] MEDS: GABAPENTIN 100 MG CAPSULE PO SCH ×3 (05:15→21:24)
[2020-11-25] MEDS: SUCRALFATE 1 GM TABLET (FP) PO SCH ×4 (06:08→21:24)
[2020-11-25] MEDS: MAG HYDROX/AL HYDROX/SIMETH 30 ML UNIT-DOSE CUP PO PRN (06:08)
[2020-11-25 07:11] LABS: HEMATOCRIT 38.4 % (35.4-49); HEMOGLOBIN 12.4 GM/dL (11.7-16.9); MCH 29.4 pg (25.7-33.7); MCHC 32.4 g/dl (32.0-35.9); MEAN CELL VOLUME 90.8 fl (80-96); PLATELET COUNT 326 10^3/uL (134-434); RBC 4.22 M/mm3 (4.00-5.60); RDW 14.1 % (11.9-15.9); WHITE BLOOD COUNT 18.6 K/mm3 (4.0-10.0)
[2020-11-25] MEDS: predniSONE 10 MG TABLET (UD) PO SCH (09:06)
[2020-11-25] MEDS: FAMOTIDINE 20 MG TABLET PO SCH ×2 (09:06→21:25)
[2020-11-25] MEDS: POLYETHYLENE GLYCOL 3350 119 GM BTL PO SCH ×2 (09:06→21:26)
[2020-11-25] MEDS: metoPROLOL SUCCINATE 25 MG TAB.SR.24H (FP) PO SCH ×2 (09:06→21:24)
[2020-11-25] MEDS: LISINOPRIL 5 MG TABLET PO SCH (09:06)
[2020-11-25] MEDS: D5-1/2NS+20 MEQ KCL - 20 MEQ/1,000 ML INFUS.BAG IV SCH (11:00)
[2020-11-25] MEDS ORDERED: PT OWN MED DRAWER 7, Y5N ONE ×3 (11:37→21:06)
[2020-11-25] MEDS ORDERED: DEXAMETHASONE SOD PHOSPHATE 4 MG/1 ML VIAL IVPUSH ONE (11:46)
[2020-11-25] MEDS ORDERED: MORPHINE SULFATE 2 MG/ML VIAL IVPUSH PRN (17:14)
[2020-11-25] MEDS: ONDANSETRON 4 MG/2 ML VIAL IVPUSH PRN (19:41)
[2020-11-25] MEDS: ATORVASTATIN CA 20 MG TABLET (FP) PO SCH (21:24)
[2020-11-25] MEDS: MONTELUKAST NA 10 MG TABLET PO SCH (21:25)
[2020-11-26] MEDS: MORPHINE SULFATE 2 MG/ML VIAL IVPUSH PRN ×4 (00:32→21:28)
[2020-11-26] MEDS: MELATONIN 5 MG TABLETS PO PRN (01:15)
[2020-11-26] MEDS: MAG HYDROX/AL HYDROX/SIMETH 30 ML UNIT-DOSE CUP PO PRN (01:15)
[2020-11-26] MEDS: diazePAM 5 MG TABLET PO SCH ×3 (01:51→18:11)
[2020-11-26] MEDS: oxyCODONE HCL 5 MG TABLET PO PRN ×4 (03:49→23:17)
[2020-11-26] MEDS: GABAPENTIN 100 MG CAPSULE PO SCH ×3 (06:26→21:28)
[2020-11-26] MEDS: SUCRALFATE 1 GM TABLET (FP) PO SCH ×4 (06:26→21:28)
[2020-11-26 08:41] LABS: BASO % 0.1 % (0-2.0); EOS % 0.1 % (0-4.5); HEMATOCRIT 36.9 % (35.4-49); HEMOGLOBIN 12.2 GM/dL (11.7-16.9); LYMPH % 5.1 % (8-40); MCH 30.2 pg (25.7-33.7); MCHC 33.1 g/dl (32.0-35.9); MEAN CELL VOLUME 91.5 fl (80-96); MEAN PLT VOLUME 7.9 fl (7.5-11.1); MONO % 12.2 % (3.8-10.2); NEUT % 82.5 % (42.8-82.8); PLATELET COUNT 293 10^3/uL (134-434); RBC 4.04 M/mm3 (4.00-5.60); RDW 14.5 % (11.9-15.9); WHITE BLOOD COUNT 17.2 K/mm3 (4.0-10.0)
[2020-11-26 08:47] LABS: CALCIUM 8.9 mg/dL (8.5-10.1)
[2020-11-26 08:48] LABS: BLOOD UREA NITROGEN 13.4 mg/dL (7-18)
[2020-11-26 08:50] LABS: CREATININE 0.7 mg/dL (0.55-1.3)
[2020-11-26 08:52] LABS: BILIRUBIN,TOTAL 0.7 mg/dL (0.2-1)
[2020-11-26] MEDS: metoPROLOL SUCCINATE 25 MG TAB.SR.24H (FP) PO SCH ×2 (09:26→22:00)
[2020-11-26] MEDS: predniSONE 10 MG TABLET (UD) PO SCH (09:26)
[2020-11-26] MEDS: LISINOPRIL 5 MG TABLET PO SCH (09:26)
[2020-11-26] MEDS: FAMOTIDINE 20 MG TABLET PO SCH ×2 (09:26→21:28)
[2020-11-26] MEDS: POLYETHYLENE GLYCOL 3350 119 GM BTL PO SCH ×2 (09:28→22:29)
[2020-11-26] MEDS ORDERED: ASPIRIN 81 MG CHEWABLE TABLETS PO SCH (11:15)
[2020-11-26] MEDS ORDERED: PT OWN MED DRAWER 7, Y5N ONE ×2 (11:15→21:25)
[2020-11-26] MEDS: CLOPIDOGREL BISULFATE 75 MG TABLET (FP) PO SCH (14:00)
[2020-11-26] MEDS: MONTELUKAST NA 10 MG TABLET PO SCH (21:28)
[2020-11-26] MEDS: ATORVASTATIN CA 20 MG TABLET (FP) PO SCH (21:28)
[2020-11-26] MEDS: DABIGATRAN ETEXILATE MESYLATE 150 MG CAPSULE PO SCH (21:28)
[2020-11-27] MEDS: MELATONIN 5 MG TABLETS PO PRN (00:54)
[2020-11-27] MEDS: MORPHINE SULFATE 2 MG/ML VIAL IVPUSH PRN ×5 (01:36→20:06)
[2020-11-27] MEDS: diazePAM 5 MG TABLET PO SCH ×3 (04:32→18:05)
[2020-11-27] MEDS: oxyCODONE HCL 5 MG TABLET PO PRN ×2 (04:57→21:22)
[2020-11-27] MEDS ORDERED: PT OWN MED DRAWER 7, Y5N ONE ×3 (05:33→21:19)
[2020-11-27] MEDS: GABAPENTIN 100 MG CAPSULE PO SCH ×3 (05:35→21:21)
[2020-11-27] MEDS: SUCRALFATE 1 GM TABLET (FP) PO SCH ×4 (06:01→21:21)
[2020-11-27 06:47] LABS: MCH 29.9 pg (25.7-33.7); MCHC 32.6 g/dl (32.0-35.9); MEAN CELL VOLUME 91.9 fl (80-96); PLATELET COUNT 303 10^3/uL (134-434); RDW 14.4 % (11.9-15.9)
[2020-11-27 09:04] LABS: RBC 4.35 M/mm3 (4.00-5.60)
[2020-11-27] MEDS: LISINOPRIL 5 MG TABLET PO SCH (09:40)
[2020-11-27] MEDS: metoPROLOL SUCCINATE 25 MG TAB.SR.24H (FP) PO SCH ×2 (09:41→21:21)
[2020-11-27] MEDS: POLYETHYLENE GLYCOL 3350 119 GM BTL PO SCH ×2 (09:41→23:13)
[2020-11-27] MEDS: predniSONE 10 MG TABLET (UD) PO SCH (09:41)
[2020-11-27] MEDS: DABIGATRAN ETEXILATE MESYLATE 150 MG CAPSULE PO SCH ×2 (09:41→21:21)
[2020-11-27] MEDS: FAMOTIDINE 20 MG TABLET PO SCH ×2 (09:41→21:21)
[2020-11-27] MEDS: CLOPIDOGREL BISULFATE 75 MG TABLET (FP) PO SCH (09:41)
[2020-11-27] MEDS ORDERED: DOCUSATE SODIUM 100 MG CAPSULE (FP) PO PRN (11:20)
[2020-11-27] MEDS: MONTELUKAST NA 10 MG TABLET PO SCH (21:21)
[2020-11-27] MEDS: ATORVASTATIN CA 20 MG TABLET (FP) PO SCH (21:21)
[2020-11-28] MEDS: MELATONIN 5 MG TABLETS PO PRN (00:31)
[2020-11-28] MEDS: MORPHINE SULFATE 2 MG/ML VIAL IVPUSH PRN ×6 (00:31→23:12)
[2020-11-28] MEDS: MAG HYDROX/AL HYDROX/SIMETH 30 ML UNIT-DOSE CUP PO PRN (01:58)
[2020-11-28] MEDS: diazePAM 5 MG TABLET PO SCH ×3 (01:58→18:27)
[2020-11-28] MEDS: oxyCODONE HCL 5 MG TABLET PO PRN ×2 (04:08→16:24)
[2020-11-28] MEDS ORDERED: PT OWN MED DRAWER 7, Y5N ONE ×2 (06:40→21:30)
[2020-11-28] MEDS: SUCRALFATE 1 GM TABLET (FP) PO SCH ×4 (06:41→21:37)
[2020-11-28] MEDS: GABAPENTIN 100 MG CAPSULE PO SCH ×3 (06:41→21:36)
[2020-11-28 07:21] LABS: HEMATOCRIT 35.5 % (35.4-49); MCH 30.7 pg (25.7-33.7); MCHC 33.7 g/dl (32.0-35.9); MEAN PLT VOLUME 7.7 fl (7.5-11.1); PLATELET COUNT 262 10^3/uL (134-434); RDW 14.2 % (11.9-15.9); WHITE BLOOD COUNT 10.9 K/mm3 (4.0-10.0)
[2020-11-28] MEDS: FAMOTIDINE 20 MG TABLET PO SCH ×2 (09:20→21:37)
[2020-11-28] MEDS: CLOPIDOGREL BISULFATE 75 MG TABLET (FP) PO SCH (09:20)
[2020-11-28] MEDS: metoPROLOL SUCCINATE 25 MG TAB.SR.24H (FP) PO SCH ×2 (09:22→21:37)
[2020-11-28] MEDS: predniSONE 10 MG TABLET (UD) PO SCH (09:22)
[2020-11-28] MEDS: POLYETHYLENE GLYCOL 3350 119 GM BTL PO SCH ×2 (09:23→21:44)
[2020-11-28] MEDS: DABIGATRAN ETEXILATE MESYLATE 150 MG CAPSULE PO SCH ×2 (09:23→21:37)
[2020-11-28] MEDS: LISINOPRIL 5 MG TABLET PO SCH (09:24)
[2020-11-28] MEDS: MONTELUKAST NA 10 MG TABLET PO SCH (21:36)
[2020-11-28] MEDS: ATORVASTATIN CA 20 MG TABLET (FP) PO SCH (21:36)
[2020-11-29] MEDS: oxyCODONE HCL 5 MG TABLET PO PRN ×2 (01:49→09:10)
[2020-11-29] MEDS: diazePAM 5 MG TABLET PO SCH ×2 (03:32→09:59)
[2020-11-29] MEDS: MORPHINE SULFATE 2 MG/ML VIAL IVPUSH PRN (04:48)
[2020-11-29] MEDS: MAG HYDROX/AL HYDROX/SIMETH 30 ML UNIT-DOSE CUP PO PRN (04:49)
[2020-11-29] MEDS: GABAPENTIN 100 MG CAPSULE PO SCH (05:45)
[2020-11-29] MEDS: SUCRALFATE 1 GM TABLET (FP) PO SCH (06:33)
[2020-11-29] MEDS ORDERED: PT OWN MED DRAWER 7, Y5N ONE (08:52)
[2020-11-29] MEDS: LISINOPRIL 5 MG TABLET PO SCH (09:09)
[2020-11-29] MEDS: predniSONE 10 MG TABLET (UD) PO SCH (09:10)
[2020-11-29] MEDS: metoPROLOL SUCCINATE 25 MG TAB.SR.24H (FP) PO SCH (09:10)
[2020-11-29] MEDS: CLOPIDOGREL BISULFATE 75 MG TABLET (FP) PO SCH (09:10)
[2020-11-29] MEDS: FAMOTIDINE 20 MG TABLET PO SCH (09:11)
[2020-11-29] MEDS: POLYETHYLENE GLYCOL 3350 119 GM BTL PO SCH (09:12)
[2020-11-29] MEDS: DABIGATRAN ETEXILATE MESYLATE 150 MG CAPSULE PO SCH (09:12)
[2020-11-29 10:44] VITALS: BP 140/76; PULSE 83; TEMP 98.5
== END 2020-11-29 11:13 | disposition home or self-care (01) | DRG 460 ==
LOC: JER 15:28 → JERBED 20:42 → J5S 11-16 01:05 → J2C 11-24 11:50 → J4S 11-24 12:37
PROVIDERS: ADMIT Internal Medicine; ATTEND Internal Medicine
PROC: 0ST20ZZ Resection of Lumbar Vertebral Disc, Open Approach (ICD-10-PCS; 2020-11-24)
PROC: 01NB0ZZ Release Lumbar Nerve, Open Approach (ICD-10-PCS; 2020-11-24)
PROC: 0SG0071 Fusion of Lumbar Vertebral Joint with Autologous Tissue Substitute, Posterior Approach, Posterior Column, Open Approach (ICD-10-PCS; principal; 2020-11-24 07:30)
DX: M51.16 Intervertebral disc disorders with radiculopathy, lumbar region (principal); I50.32 Chronic diastolic (congestive) heart failure; I25.119 Atherosclerotic heart disease of native coronary artery with unspecified angina pectoris; M43.16 Spondylolisthesis, lumbar region; M48.061 Spinal stenosis, lumbar region without neurogenic claudication; J44.9 Chronic obstructive pulmonary disease, unspecified; K21.9 Gastro-esophageal reflux disease without esophagitis; N40.0 Benign prostatic hyperplasia without lower urinary tract symptoms; E11.42 Type 2 diabetes mellitus with diabetic polyneuropathy; E78.5 Hyperlipidemia, unspecified; I25.2 Old myocardial infarction; F41.0 Panic disorder [episodic paroxysmal anxiety]; I11.0 Hypertensive heart disease with heart failure; I48.0 Paroxysmal atrial fibrillation; I45.10 Unspecified right bundle-branch block; R26.81 Unsteadiness on feet
CPT/HCPCS: 36415; 71046-TC-FY; 72100-TC-FY; 72148-TC; 78452-TC; 80053; 80061; 81003; 82272; 83036; 83721; 83880; 84443; 85025; 85027; 85610; 85730; 86850; 86900; 86901; 87086; 87186; 88304-TC; 93005; 93010; 93017; 93306-TC; 94010; 94760; 97116-GP; 97162-GP; 99285-25; A9502; C9803; J0131; J1100; J1644; J2785; U0003; U0005

== ENCOUNTER 2020-12-13 07:36 | Emergency (ER) | payer OTHER ==
[2020-12-13 07:54] VITALS: BMI 19.5
[2020-12-13] MEDS ORDERED: ALBUTEROL SO4 2.5/IPRATROPIUM 0.5 INH SOL 3 ML VIAL.NEB. NEB ONE (08:43)
[2020-12-13 09:20] LABS: BASO % 0.5 % (0-2.0); EOS % 3.8 % (0-4.5); HEMATOCRIT 38.5 % (35.4-49); HEMOGLOBIN 12.5 GM/dL (11.7-16.9); LYMPH % 23.2 % (8-40); MCH 29.7 pg (25.7-33.7); MCHC 32.4 g/dl (32.0-35.9); MEAN CELL VOLUME 91.6 fl (80-96); MEAN PLT VOLUME 7.2 fl (7.5-11.1); MONO % 10.2 % (3.8-10.2); NEUT % 62.3 % (42.8-82.8); PLATELET COUNT 302 10^3/uL (134-434); RDW 14.6 % (11.9-15.9); WHITE BLOOD COUNT 6.8 K/mm3 (4.0-10.0)
[2020-12-13 09:22] LABS: INR 1.21 (0.83-1.09); PROTHROMBIN TIME (PATIENT) 14.8 SEC (9.7-13.0)
[2020-12-13 09:36] LABS: CHLORIDE 109 mmol/L (98-107); SODIUM 141 mmol/L (136-145)
[2020-12-13 09:40] LABS: ALBUMIN 2.9 g/dl (3.4-5.0); ANION GAP 4 MMOL/L (8-16); BLOOD UREA NITROGEN 7.8 mg/dL (7-18); CALCIUM 8.3 mg/dL (8.5-10.1); CO2 28 mmol/L (21-32); GLUCOSE,RANDOM 101 mg/dL (74-106)
[2020-12-13 09:43] LABS: CREATININE 0.7 mg/dL (0.55-1.3)
[2020-12-13 09:44] LABS: SGOT/AST 38 U/L (15-37)
[2020-12-13 09:45] LABS: BILIRUBIN,TOTAL 0.3 mg/dL (0.2-1); SGPT/ALT 55 U/L (13-61); TOT PROT 5.8 g/dl (6.4-8.2)
[2020-12-13 09:46] LABS: ALK PHOS 76 U/L (45-117)
[2020-12-13 10:37] LABS: ANISOCYTOSIS 0; HELMET CELLS 0; HOWELL-JOLLY BODIES 0; MACROCYTOSIS 0; OVALOCYTE 0; PLATELET ESTIMATE NORMAL; ROULEAU 0; SICKELED CELLS 0; TARGET CELLS 0; TEAR DROP CELLS 0; TOXIC GRANULATION 0
[2020-12-13] MEDS ORDERED: oxyCODONE HCL 5 MG TABLET PO ONE (13:44)
[2020-12-13] MEDS ORDERED: DABIGATRAN ETEXILATE MESYLATE 150 MG CAPSULE PO ONE (13:45)
[2020-12-13] MEDS ORDERED: oxyCODONE HCL 5 MG TABLET ONE (14:22)
[2020-12-13] MEDS ORDERED: METOPROLOL TARTRATE 25 MG TABLET (FP) PO ONE (14:40)
[2020-12-13] MEDS ORDERED: metoPROLOL SUCCINATE 25 MG TAB.SR.24H (FP) ONE (14:48)
[2020-12-13 15:03] VITALS: TEMP 97.4
[2020-12-13] MEDS ORDERED: dilTIAZem HCL 50 MG/10 ML - 10 ML VIAL IVPUSH ONE (16:14)
[2020-12-13] MEDS ORDERED: dilTIAZem HCL 125 MG/25 ML - 25 ML VIAL ONE (16:20)
[2020-12-13] MEDS ORDERED: ACETAMINOPHEN 325 MG TABLET (FP) PO ONE (19:47)
[2020-12-13 19:48] VITALS: BP 130/81; PULSE 90
[2020-12-13] MEDS ORDERED: ACETAMINOPHEN 325 MG TABLET (FP) ONE (19:58)
== END 2020-12-13 22:03 ==
LOC: JER 07:36
PROC: 3E0F7GC Introduction of Other Therapeutic Substance into Respiratory Tract, Via Natural or Artificial Opening (ICD-10-PCS; principal; 2020-12-13)
PROC: 3E033GC Introduction of Other Therapeutic Substance into Peripheral Vein, Percutaneous Approach (ICD-10-PCS; 2020-12-13)
DX: R04.2 Hemoptysis (principal); R05 Cough
CPT/HCPCS: 36415; 71045-TC-FY; 71250-TC; 80053; 82550; 84484; 85025; 85610; 87070; 87186; 87205; 93005; 93010; 99285-25

== ENCOUNTER 2020-12-16 00:24 | Inpatient (IN) | payer OTHER ==
[2020-12-16] MEDS ORDERED: metoPROLOL SUCCINATE 25 MG TAB.SR.24H (FP) PO ONE ×2 (00:46→03:15)
[2020-12-16 00:48] LABS: BASO % 0.5 % (0-2.0); EOS % 0.9 % (0-4.5); HEMATOCRIT 35.7 % (35.4-49); HEMOGLOBIN 11.9 GM/dL (11.7-16.9); LYMPH % 13.7 % (8-40); MCH 29.8 pg (25.7-33.7); MCHC 33.3 g/dl (32.0-35.9); MEAN CELL VOLUME 89.5 fl (80-96); MEAN PLT VOLUME 7.2 fl (7.5-11.1); MONO % 12.7 % (3.8-10.2); NEUT % 72.2 % (42.8-82.8); PLATELET COUNT 323 10^3/uL (134-434); RBC 3.99 M/mm3 (4.00-5.60); RDW 14.4 % (11.9-15.9); WHITE BLOOD COUNT 9.5 K/mm3 (4.0-10.0)
[2020-12-16] MEDS ORDERED: metoPROLOL SUCCINATE 25 MG TAB.SR.24H (FP) ONE (00:53)
[2020-12-16 01:05] LABS: CHLORIDE 114 mmol/L (98-107); SODIUM 145 mmol/L (136-145)
[2020-12-16 01:07] LABS: ALBUMIN 3.4 g/dl (3.4-5.0); ANION GAP 9 MMOL/L (8-16); BLOOD UREA NITROGEN 9.1 mg/dL (7-18); CALCIUM 8.9 mg/dL (8.5-10.1); CO2 23 mmol/L (21-32)
[2020-12-16 01:08] LABS: GLUCOSE,RANDOM 105 mg/dL (74-106); INR 1.25 (0.83-1.09); PROTHROMBIN TIME (PATIENT) 15.3 SEC (9.7-13.0)
[2020-12-16 01:10] LABS: SGPT/ALT 52 U/L (13-61)
[2020-12-16 01:11] LABS: ACTIVATED PTT 40.1 SECONDS (25.2-36.5); CREATININE 0.8 mg/dL (0.55-1.3); SGOT/AST 37 U/L (15-37)
[2020-12-16 01:12] LABS: BILIRUBIN,TOTAL 0.4 mg/dL (0.2-1); TOT PROT 6.5 g/dl (6.4-8.2)
[2020-12-16 01:13] LABS: ALK PHOS 82 U/L (45-117)
[2020-12-16] MEDS ORDERED: ASPIRIN 81 MG CHEWABLE TABLETS PO ONE (02:32)
[2020-12-16] MEDS ORDERED: DOCUSATE SODIUM 100 MG CAPSULE (FP) PO PRN (05:15)
[2020-12-16] MEDS ORDERED: NITROGLYCERIN SUBLINGUAL 1/150 0.4 MG TAB SL PRN (05:15)
[2020-12-16] MEDS ORDERED: MESALAMINE 1000 MG/SUPP.RECT SUPP RC PRN (05:15)
[2020-12-16] MEDS ORDERED: ALBUTEROL SO4 0.083% IH SOL 2.5 MG/3 ML VIAL.NEB. NEB PRN (05:15)
[2020-12-16] MEDS ORDERED: [UNRECOGNIZED DRUG - OTHER] NS PRN (05:15)
[2020-12-16] MEDS ORDERED: SUCRALFATE 1 GM TABLET (FP) ONE (07:29)
[2020-12-16] MEDS: SUCRALFATE 1 GM TABLET (FP) PO SCH ×4 (07:33→22:00)
[2020-12-16] MEDS ORDERED: MULTIVITAMINS (DAILY MVI) TABLET (FP) ONE (09:34)
[2020-12-16] MEDS ORDERED: dilTIAZem HCL 60 MG TABLET ONE (09:35)
[2020-12-16] MEDS ORDERED: predniSONE 10 MG TABLET (UD) ONE (09:35)
[2020-12-16] MEDS ORDERED: FAMOTIDINE 20 MG TABLET ONE (09:35)
[2020-12-16] MEDS ORDERED: LISINOPRIL 5 MG TABLET ONE (09:35)
[2020-12-16] MEDS: predniSONE 10 MG TABLET (UD) PO SCH (09:49)
[2020-12-16] MEDS: DABIGATRAN ETEXILATE MESYLATE 150 MG CAPSULE PO SCH ×2 (09:50→22:00)
[2020-12-16] MEDS: FAMOTIDINE 20 MG TABLET PO SCH ×2 (09:50→22:00)
[2020-12-16] MEDS: MAGNESIUM CL 64 MG TABLET.SA PO SCH ×2 (09:50→22:00)
[2020-12-16] MEDS: MULTIVITAMINS (DAILY MVI) TABLET (FP) PO SCH (09:50)
[2020-12-16] MEDS: LISINOPRIL 5 MG TABLET PO SCH (09:50)
[2020-12-16] MEDS: CYANOCOBALAMIN 1,000 MCG TABLET (FP) PO SCH (09:51)
[2020-12-16] MEDS ORDERED: oxyCODONE HCL 5 MG TABLET ONE (09:54)
[2020-12-16] MEDS: oxyCODONE HCL 5 MG TABLET PO PRN ×3 (09:56→22:04)
[2020-12-16] MEDS ORDERED: metoPROLOL SUCCINATE 25 MG TAB.SR.24H (FP) PO SCH (10:00)
[2020-12-16] MEDS ORDERED: ENOXAPARIN NA (PORCINE) 40 MG/0.4 ML DISP.SYRIN SQ SCH (10:00)
[2020-12-16] MEDS ORDERED: CLOPIDOGREL BISULFATE 75 MG TABLET (FP) PO SCH (10:00)
[2020-12-16 12:12] VITALS: BMI 28.5
[2020-12-16] MEDS ORDERED: cefTRIAXone SODIUM 1 GM VIAL ONE (12:22)
[2020-12-16] MEDS ORDERED: DEXTROSE 5%-WATER - 50 ML IVPB ONE (12:22)
[2020-12-16] MEDS: CEFTRIAXONE 1 GM in DEXTROSE 5%-WATER - 50 ML IVPB SCH (12:32)
[2020-12-16] MEDS ORDERED: PT OWN MED DRAWER 7, Y5N ONE (21:31)
[2020-12-16] MEDS: ATORVASTATIN CA 20 MG TABLET (FP) PO SCH (22:00)
[2020-12-16] MEDS: MONTELUKAST NA 10 MG TABLET PO SCH (22:00)
[2020-12-16] MEDS: FOLIC ACID 1 MG TABLET (FP) PO SCH (22:00)
[2020-12-16] MEDS: ZOLPIDEM TARTRATE 5 MG TABLET PO PRN (22:04)
[2020-12-17] MEDS: SUCRALFATE 1 GM TABLET (FP) PO SCH ×4 (06:01→21:05)
[2020-12-17 08:07] LABS: BASO % 0.5 % (0-2.0); EOS % 3.9 % (0-4.5); HEMATOCRIT 37.3 % (35.4-49); HEMOGLOBIN 12.1 GM/dL (11.7-16.9); LYMPH % 22.6 % (8-40); MCH 29.6 pg (25.7-33.7); MCHC 32.5 g/dl (32.0-35.9); MEAN CELL VOLUME 91.2 fl (80-96); MEAN PLT VOLUME 7.7 fl (7.5-11.1); MONO % 12.2 % (3.8-10.2); NEUT % 60.8 % (42.8-82.8); PLATELET COUNT 331 10^3/uL (134-434); RBC 4.09 M/mm3 (4.00-5.60); RDW 14.5 % (11.9-15.9); WHITE BLOOD COUNT 7.5 K/mm3 (4.0-10.0)
[2020-12-17 08:12] LABS: INR 1.09 (0.83-1.09); PROTHROMBIN TIME (PATIENT) 13.4 SEC (9.7-13.0)
[2020-12-17 08:33] LABS: BLOOD UREA NITROGEN 7.2 mg/dL (7-18); CALCIUM 8.4 mg/dL (8.5-10.1)
[2020-12-17 08:36] LABS: CREATININE 0.8 mg/dL (0.55-1.3)
[2020-12-17 08:38] LABS: BILIRUBIN,TOTAL 0.7 mg/dL (0.2-1)
[2020-12-17] MEDS ORDERED: cefTRIAXone SODIUM 1 GM VIAL ONE (08:51)
[2020-12-17] MEDS ORDERED: DEXTROSE 5%-WATER - 50 ML IVPB ONE (08:51)
[2020-12-17] MEDS ORDERED: PT OWN MED DRAWER 7, Y5N ONE (08:51)
[2020-12-17] MEDS: predniSONE 10 MG TABLET (UD) PO SCH (09:08)
[2020-12-17] MEDS: DABIGATRAN ETEXILATE MESYLATE 150 MG CAPSULE PO SCH ×2 (09:08→21:05)
[2020-12-17] MEDS: FAMOTIDINE 20 MG TABLET PO SCH ×2 (09:08→21:05)
[2020-12-17] MEDS: LISINOPRIL 5 MG TABLET PO SCH (09:09)
[2020-12-17] MEDS: MULTIVITAMINS (DAILY MVI) TABLET (FP) PO SCH (09:10)
[2020-12-17] MEDS: CEFTRIAXONE 1 GM in DEXTROSE 5%-WATER - 50 ML IVPB SCH (09:10)
[2020-12-17] MEDS: MAGNESIUM CL 64 MG TABLET.SA PO SCH ×2 (09:10→21:05)
[2020-12-17] MEDS: CYANOCOBALAMIN 1,000 MCG TABLET (FP) PO SCH (09:11)
[2020-12-17] MEDS: oxyCODONE HCL 5 MG TABLET PO PRN ×3 (09:25→22:50)
[2020-12-17] MEDS: FOLIC ACID 1 MG TABLET (FP) PO SCH (21:05)
[2020-12-17] MEDS: ATORVASTATIN CA 20 MG TABLET (FP) PO SCH (21:05)
[2020-12-17] MEDS: MONTELUKAST NA 10 MG TABLET PO SCH (21:05)
[2020-12-17] MEDS: ZOLPIDEM TARTRATE 5 MG TABLET PO PRN (22:50)
[2020-12-18] MEDS: SUCRALFATE 1 GM TABLET (FP) PO SCH ×4 (06:36→21:52)
[2020-12-18] MEDS ORDERED: PT OWN MED DRAWER 7, Y5N ONE ×2 (09:04→21:41)
[2020-12-18] MEDS ORDERED: cefTRIAXone SODIUM 1 GM VIAL ONE (09:04)
[2020-12-18] MEDS ORDERED: DEXTROSE 5%-WATER - 50 ML IVPB ONE (09:04)
[2020-12-18] MEDS: MULTIVITAMINS (DAILY MVI) TABLET (FP) PO SCH (09:16)
[2020-12-18] MEDS: predniSONE 10 MG TABLET (UD) PO SCH (09:16)
[2020-12-18] MEDS: CYANOCOBALAMIN 1,000 MCG TABLET (FP) PO SCH (09:16)
[2020-12-18] MEDS: DABIGATRAN ETEXILATE MESYLATE 150 MG CAPSULE PO SCH ×2 (09:16→21:53)
[2020-12-18] MEDS: MAGNESIUM CL 64 MG TABLET.SA PO SCH ×2 (09:16→21:53)
[2020-12-18] MEDS: FAMOTIDINE 20 MG TABLET PO SCH ×2 (09:16→21:53)
[2020-12-18] MEDS: CEFTRIAXONE 1 GM in DEXTROSE 5%-WATER - 50 ML IVPB SCH (09:17)
[2020-12-18] MEDS: LISINOPRIL 5 MG TABLET PO SCH (09:17)
[2020-12-18] MEDS: oxyCODONE HCL 5 MG TABLET PO PRN ×3 (09:48→21:54)
[2020-12-18] MEDS: TAMSULOSIN HCL 0.4 MG CAP PO SCH (11:51)
[2020-12-18 15:34] LABS: URINE APPEARANCE CLEAR; URINE BILIRUBIN NEGATIVE (NEGATIVE); URINE COLOR YELLOW; URINE GLUCOSE (UA) NEGATIVE (NEGATIVE); URINE KETONE NEGATIVE (NEGATIVE); URINE LEUK ESTERASE NEGATIVE (NEGATIVE); URINE NITRITE NEGATIVE (NEGATIVE); URINE PROTEIN NEGATIVE (NEGATIVE); URINE UROBILINOGEN 0.2 mg/dL (0.2-1.0)
[2020-12-18] MEDS: FOLIC ACID 1 MG TABLET (FP) PO SCH (21:53)
[2020-12-18] MEDS: MONTELUKAST NA 10 MG TABLET PO SCH (21:53)
[2020-12-18] MEDS: ATORVASTATIN CA 20 MG TABLET (FP) PO SCH (21:53)
[2020-12-18] MEDS: ZOLPIDEM TARTRATE 5 MG TABLET PO PRN (21:54)
[2020-12-19] MEDS: SUCRALFATE 1 GM TABLET (FP) PO SCH ×4 (07:08→21:59)
[2020-12-19 08:11] LABS: BASO % 0.4 % (0-2.0); HEMOGLOBIN 11.4 GM/dL (11.7-16.9); LYMPH % 24.3 % (8-40); MCH 29.8 pg (25.7-33.7); MCHC 32.6 g/dl (32.0-35.9); MEAN CELL VOLUME 91.3 fl (80-96); MEAN PLT VOLUME 7.7 fl (7.5-11.1); MONO % 13.7 % (3.8-10.2); NEUT % 58.6 % (42.8-82.8); PLATELET COUNT 305 10^3/uL (134-434); RBC 3.84 M/mm3 (4.00-5.60); RDW 14.3 % (11.9-15.9); WHITE BLOOD COUNT 7.1 K/mm3 (4.0-10.0)
[2020-12-19 08:41] LABS: CALCIUM 8.4 mg/dL (8.5-10.1)
[2020-12-19 08:42] LABS: ALBUMIN 2.7 g/dl (3.4-5.0); BLOOD UREA NITROGEN 8.5 mg/dL (7-18)
[2020-12-19 08:45] LABS: CREATININE 0.7 mg/dL (0.55-1.3)
[2020-12-19 08:46] LABS: BILIRUBIN,TOTAL 0.4 mg/dL (0.2-1)
[2020-12-19 08:47] LABS: TOT PROT 5.5 g/dl (6.4-8.2)
[2020-12-19] MEDS ORDERED: cefTRIAXone SODIUM 1 GM VIAL ONE (09:20)
[2020-12-19] MEDS ORDERED: DEXTROSE 5%-WATER - 50 ML IVPB ONE (09:20)
[2020-12-19] MEDS: LISINOPRIL 5 MG TABLET PO SCH (09:24)
[2020-12-19] MEDS: TAMSULOSIN HCL 0.4 MG CAP PO SCH (09:24)
[2020-12-19] MEDS: FAMOTIDINE 20 MG TABLET PO SCH ×2 (09:24→21:59)
[2020-12-19] MEDS: MULTIVITAMINS (DAILY MVI) TABLET (FP) PO SCH (09:24)
[2020-12-19] MEDS: predniSONE 10 MG TABLET (UD) PO SCH (09:25)
[2020-12-19] MEDS: CEFTRIAXONE 1 GM in DEXTROSE 5%-WATER - 50 ML IVPB SCH (09:25)
[2020-12-19] MEDS: CYANOCOBALAMIN 1,000 MCG TABLET (FP) PO SCH (09:25)
[2020-12-19] MEDS: DABIGATRAN ETEXILATE MESYLATE 150 MG CAPSULE PO SCH ×2 (09:32→21:59)
[2020-12-19] MEDS: MAGNESIUM CL 64 MG TABLET.SA PO SCH ×2 (09:33→21:59)
[2020-12-19] MEDS ORDERED: PT OWN MED DRAWER 7, Y5N ONE ×2 (09:39→21:57)
[2020-12-19] MEDS ORDERED: ALBUTEROL SO4 0.083% IH SOL 2.5 MG/3 ML VIAL.NEB. NEB PRN (12:43)
[2020-12-19] MEDS: oxyCODONE HCL 5 MG TABLET PO PRN ×3 (13:37→23:39)
[2020-12-19] MEDS: BUDESONIDE/FORMETEROL FUMARATE 160/4.5 mcg INHALER IH SCH ×2 (15:51→22:00)
[2020-12-19] MEDS: ATORVASTATIN CA 20 MG TABLET (FP) PO SCH (21:59)
[2020-12-19] MEDS: MONTELUKAST NA 10 MG TABLET PO SCH (21:59)
[2020-12-19] MEDS: FOLIC ACID 1 MG TABLET (FP) PO SCH (21:59)
[2020-12-20] MEDS: ZOLPIDEM TARTRATE 5 MG TABLET PO PRN ×2 (00:39→22:15)
[2020-12-20] MEDS: SUCRALFATE 1 GM TABLET (FP) PO SCH ×5 (07:35→22:14)
[2020-12-20] MEDS: TAMSULOSIN HCL 0.4 MG CAP PO SCH (08:30)
[2020-12-20] MEDS ORDERED: cefTRIAXone SODIUM 1 GM VIAL ONE (09:26)
[2020-12-20] MEDS ORDERED: PT OWN MED DRAWER 7, Y5N ONE ×5 (09:26→22:24)
[2020-12-20] MEDS ORDERED: DEXTROSE 5%-WATER - 50 ML IVPB ONE (09:27)
[2020-12-20] MEDS: CYANOCOBALAMIN 1,000 MCG TABLET (FP) PO SCH (09:48)
[2020-12-20] MEDS: predniSONE 10 MG TABLET (UD) PO SCH (09:48)
[2020-12-20] MEDS: FAMOTIDINE 20 MG TABLET PO SCH ×2 (09:48→22:14)
[2020-12-20] MEDS: LISINOPRIL 5 MG TABLET PO SCH (09:48)
[2020-12-20] MEDS: MAGNESIUM CL 64 MG TABLET.SA PO SCH ×2 (09:48→22:14)
[2020-12-20] MEDS: MULTIVITAMINS (DAILY MVI) TABLET (FP) PO SCH (09:48)
[2020-12-20] MEDS: DABIGATRAN ETEXILATE MESYLATE 150 MG CAPSULE PO SCH ×2 (09:48→22:14)
[2020-12-20] MEDS: CEFTRIAXONE 1 GM in DEXTROSE 5%-WATER - 50 ML IVPB SCH (09:49)
[2020-12-20] MEDS: BUDESONIDE/FORMETEROL FUMARATE 160/4.5 mcg INHALER IH SCH ×2 (09:54→22:15)
[2020-12-20] MEDS: PATIENT'S OWN MEDICATION (NON-FORMULARY) (Omega-3/Dha/Epa/Fish Oil [Fish Oil 1,000 Mg Soft PO SCH ×4 (09:56→10:00)
[2020-12-20] MEDS: ALBUTEROL SO4 HFA INHALER IH SCH ×3 (09:57→10:00)
[2020-12-20] MEDS: PATIENT'S OWN MEDICATION (NON-FORMULARY) (Olopatadine Hcl [Pataday] 2.5 ML Drops) OP SCH (10:02)
[2020-12-20] MEDS: oxyCODONE HCL 5 MG TABLET PO PRN ×2 (13:13→22:14)
[2020-12-20] MEDS: DUTASTERIDE 0.5 MG CAP (FP) PO SCH (16:22)
[2020-12-20] MEDS: CEFUROXIME AXETIL 500 MG TABLET PO SCH (22:14)
[2020-12-20] MEDS: FOLIC ACID 1 MG TABLET (FP) PO SCH (22:14)
[2020-12-20] MEDS: MONTELUKAST NA 10 MG TABLET PO SCH (22:14)
[2020-12-20] MEDS: ATORVASTATIN CA 20 MG TABLET (FP) PO SCH (22:14)
[2020-12-21] MEDS: SUCRALFATE 1 GM TABLET (FP) PO SCH ×4 (06:14→21:08)
[2020-12-21] MEDS ORDERED: PT OWN MED DRAWER 7, Y5N ONE ×3 (09:00→20:58)
[2020-12-21] MEDS: predniSONE 10 MG TABLET (UD) PO SCH (09:09)
[2020-12-21] MEDS: MULTIVITAMINS (DAILY MVI) TABLET (FP) PO SCH (09:09)
[2020-12-21] MEDS: FAMOTIDINE 20 MG TABLET PO SCH ×2 (09:09→21:10)
[2020-12-21] MEDS: LISINOPRIL 5 MG TABLET PO SCH (09:09)
[2020-12-21] MEDS: TAMSULOSIN HCL 0.4 MG CAP PO SCH (09:09)
[2020-12-21] MEDS: CYANOCOBALAMIN 1,000 MCG TABLET (FP) PO SCH (09:09)
[2020-12-21] MEDS: DUTASTERIDE 0.5 MG CAP (FP) PO SCH (09:10)
[2020-12-21] MEDS: MAGNESIUM CL 64 MG TABLET.SA PO SCH ×2 (09:11→21:23)
[2020-12-21] MEDS: CEFUROXIME AXETIL 500 MG TABLET PO SCH ×2 (09:11→21:11)
[2020-12-21] MEDS: DABIGATRAN ETEXILATE MESYLATE 150 MG CAPSULE PO SCH ×2 (09:11→21:22)
[2020-12-21] MEDS: BUDESONIDE/FORMETEROL FUMARATE 160/4.5 mcg INHALER IH SCH ×2 (09:12→21:11)
[2020-12-21] MEDS: oxyCODONE HCL 5 MG TABLET PO PRN ×3 (11:47→23:25)
[2020-12-21] MEDS ORDERED: NITROGLYCERIN SUBLINGUAL 1/150 0.4 MG TAB SL PRN (19:59)
[2020-12-21] MEDS ORDERED: MESALAMINE 1000 MG/SUPP.RECT SUPP RC PRN (19:59)
[2020-12-21] MEDS ORDERED: DOCUSATE SODIUM 100 MG CAPSULE (FP) PO PRN (19:59)
[2020-12-21] MEDS ORDERED: ALBUTEROL SO4 0.083% IH SOL 2.5 MG/3 ML VIAL.NEB. NEB PRN (19:59)
[2020-12-21] MEDS: ZOLPIDEM TARTRATE 5 MG TABLET PO PRN ×2 (21:10→23:25)
[2020-12-21] MEDS ORDERED: MONTELUKAST NA 10 MG TABLET PO SCH (22:00)
[2020-12-21] MEDS ORDERED: FOLIC ACID 1 MG TABLET (FP) PO SCH (22:00)
[2020-12-21] MEDS ORDERED: ATORVASTATIN CA 20 MG TABLET (FP) PO SCH (22:00)
[2020-12-22] MEDS ORDERED: PT OWN MED DRAWER 7, Y5N ONE ×2 (05:44→09:05)
[2020-12-22] MEDS: SUCRALFATE 1 GM TABLET (FP) PO SCH ×2 (06:23→10:55)
[2020-12-22] MEDS ORDERED: TAMSULOSIN HCL 0.4 MG CAP PO SCH (08:30)
[2020-12-22] MEDS: CEFUROXIME AXETIL 500 MG TABLET PO SCH (09:51)
[2020-12-22] MEDS: FAMOTIDINE 20 MG TABLET PO SCH (09:52)
[2020-12-22] MEDS: DABIGATRAN ETEXILATE MESYLATE 150 MG CAPSULE PO SCH (09:52)
[2020-12-22] MEDS: MAGNESIUM CL 64 MG TABLET.SA PO SCH (09:53)
[2020-12-22] MEDS: BUDESONIDE/FORMETEROL FUMARATE 160/4.5 mcg INHALER IH SCH (09:54)
[2020-12-22] MEDS: oxyCODONE HCL 5 MG TABLET PO PRN (09:54)
[2020-12-22] MEDS ORDERED: MULTIVITAMINS (DAILY MVI) TABLET (FP) PO SCH (10:00)
[2020-12-22] MEDS ORDERED: DUTASTERIDE 0.5 MG CAP (FP) PO SCH (10:00)
[2020-12-22] MEDS ORDERED: predniSONE 10 MG TABLET (UD) PO SCH (10:00)
[2020-12-22] MEDS ORDERED: CYANOCOBALAMIN 1,000 MCG TABLET (FP) PO SCH (10:00)
[2020-12-22] MEDS ORDERED: LISINOPRIL 5 MG TABLET PO SCH (10:00)
[2020-12-22 10:07] VITALS: BP 100/66; PULSE 85; TEMP 98
== END 2020-12-22 15:00 | disposition home or self-care (01) | DRG 309 ==
LOC: JER 00:24 → JERBED 02:25 → J4W 10:25 → OBSVTOIN 12-20 10:36 → J7W 12-21 15:54
PROVIDERS: ADMIT Hospitalist; ATTEND Internal Medicine
DX: I48.0 Paroxysmal atrial fibrillation (principal); J44.1 Chronic obstructive pulmonary disease with (acute) exacerbation; I50.32 Chronic diastolic (congestive) heart failure; I11.0 Hypertensive heart disease with heart failure; I25.119 Atherosclerotic heart disease of native coronary artery with unspecified angina pectoris; K21.9 Gastro-esophageal reflux disease without esophagitis; K57.90 Diverticulosis of intestine, part unspecified, without perforation or abscess without bleeding; K22.4 Dyskinesia of esophagus; E78.00 Pure hypercholesterolemia, unspecified; D50.9 Iron deficiency anemia, unspecified; K76.0 Fatty (change of) liver, not elsewhere classified; I25.2 Old myocardial infarction; M54.9 Dorsalgia, unspecified; F41.0 Panic disorder [episodic paroxysmal anxiety]; N40.1 Benign prostatic hyperplasia with lower urinary tract symptoms; B96.20 Unspecified Escherichia coli [E. coli] as the cause of diseases classified elsewhere; E11.42 Type 2 diabetes mellitus with diabetic polyneuropathy; F17.210 Nicotine dependence, cigarettes, uncomplicated; Z95.5 Presence of coronary angioplasty implant and graft; Z99.81 Dependence on supplemental oxygen; Z98.890 Other specified postprocedural states
CPT/HCPCS: 36415; 71045-TC-FY; 76775-TC; 76856-TC; 80048; 80053; 81003; 82550; 84153; 84443; 84484; 85025; 85610; 85730; 87086; 93005; 93010; 97116-GP; 97161-GP; 99285-25; C9803; G0378; U0003; U0005

== ENCOUNTER 2021-02-27 17:47 | Emergency (ER) | payer OTHER ==
[2021-02-27 17:53] VITALS: BP 132/75; PULSE 74; TEMP 99.6; BMI 27.1
== END 2021-02-27 18:47 | disposition home or self-care (01) ==
LOC: FER 17:47
DX: H11.32 Conjunctival hemorrhage, left eye (principal)
CPT/HCPCS: 99283-25; 99284-25

== ENCOUNTER 2021-11-04 23:27 | Emergency (ER) | payer OTHER ==
[2021-11-04 23:51] VITALS: BP 162/90; PULSE 75; TEMP 98.4; BMI 27.8
[2021-11-05] MEDS ORDERED: ACETAMINOPHEN 500 MG TABLET (FP) PO ONE (00:15)
[2021-11-05] MEDS ORDERED: ACETAMINOPHEN 325 MG TABLET (FP) ONE (00:17)
== END 2021-11-05 05:17 ==
LOC: JER 23:27
DX: M79.601 Pain in right arm (principal); W18.2XXA Fall in (into) shower or empty bathtub, initial encounter
CPT/HCPCS: 70450-TC; 72125-TC; 73030-TC-RT-FY; 73060-TC-RT-FY; 73070-TC-RT-FY; 73200-TC-RT; 99285-25

== ENCOUNTER 2023-11-11 18:18 | Emergency (ER) | payer OTHER ==
[2023-11-11 18:28] VITALS: BP 167/102; PULSE 86; RESP 16; TEMP 98.2; BMI 27.3
[2023-11-11] MEDS ORDERED: DIPHTH,PERTUSS(ACELL),TET 0.5 ML DISP.SYRIN IM ONE (19:57)
[2023-11-11] MEDS ORDERED: ACETAMINOPHEN 500 MG TABLET (FP) ONE (19:58)
[2023-11-11] MEDS: DIPHTH,PERTUSS(ACELL),TET 0.5 ML DISP.SYRIN IM ONE (20:04)
[2023-11-11] MEDS: ACETAMINOPHEN 500 MG TABLET (FP) PO ONE (20:06)
[2023-11-11] MEDS: ACETAMINOPHEN 1000 MG/100 ML BAG IVPB ONE (20:07)
== END 2023-11-11 21:18 | disposition home or self-care (01) ==
LOC: JER 18:18
PROC: 3E0234Z Introduction of Serum, Toxoid and Vaccine into Muscle, Percutaneous Approach (ICD-10-PCS; principal; 2023-11-11)
DX: S01.111A Laceration without foreign body of right eyelid and periocular area, initial encounter (principal); S40.021A Contusion of right upper arm, initial encounter; S40.022A Contusion of left upper arm, initial encounter; S80.11XA Contusion of right lower leg, initial encounter; S80.12XA Contusion of left lower leg, initial encounter; S89.92XA Unspecified injury of left lower leg, initial encounter; W01.198A Fall on same level from slipping, tripping and stumbling with subsequent striking against other object, initial encounter; Y93.01 Activity, walking, marching and hiking
CPT/HCPCS: 70450-TC; 70486-TC; 72125-TC; 73110-TC-LT-FY; 73110-TC-RT-FY; 73564-TC-LT-FY; 73564-TC-RT-FY; 90471; 90715; 93005; 93010; 99285-25

== ENCOUNTER 2024-04-09 00:25 | Emergency (ER) | payer OTHER ==
[2024-04-09 00:42] VITALS: BP 143/81; PULSE 89; RESP 20; TEMP 98.8; BMI 27.1
[2024-04-09] MEDS ORDERED: LIDOCAINE 1%/EPI 1:100000 (20 ML MULTI DOSE VIAL) ONE ×2 (01:08→01:10)
[2024-04-09] MEDS ORDERED: DIPHTH,PERTUSS(ACELL),TET 0.5 ML DISP.SYRIN IM ONE (01:11)
[2024-04-09] MEDS: DIPHTH,PERTUSS(ACELL),TET 0.5 ML DISP.SYRIN IM ONE (01:22)
[2024-04-09] MEDS: LIDOCAINE 1%/EPI 1:100000 (20 ML MULTI DOSE VIAL) PNB ONE (01:23)
== END 2024-04-09 03:18 | disposition home or self-care (01) ==
LOC: JER 00:25
PROC: 0HQKXZZ Repair Right Lower Leg Skin, External Approach (ICD-10-PCS; principal; 2024-04-09)
PROC: 3E0234Z Introduction of Serum, Toxoid and Vaccine into Muscle, Percutaneous Approach (ICD-10-PCS; 2024-04-09)
DX: S81.811A Laceration without foreign body, right lower leg, initial encounter (principal); W26.8XXA Contact with other sharp object(s), not elsewhere classified, initial encounter; Z23 Encounter for immunization
CPT/HCPCS: 12002-25; 90471; 90715; 99284-25